=== PATIENT | female | born 1930 | race Hispanic/Latino ===

== ENCOUNTER 2017-09-14 07:40 | Inpatient (IN) | payer MEDICARE, BC ==
[2017-09-14 07:47] VITALS: BMI 28.8
--- NOTE | 2017-09-14 07:49 | ED PDOC ---
Arrival/HPI - General Chief Complaint: Dizziness/Lightheaded Time Seen by Provider: 09/14/17 07:49 Historian: Patient, Family - History of Present Illness Narrative History of Present Illness (Text): 09/14/17 07:50 87 year old female, whose past medical history includes hyperthyroidism and atrial fibrillation (on 2mg Coumadin), who presents to the emergency department via EMS complaining of dizziness. According to daughter patient has intermittent episodes of dizziness for a couple of months. Patient reports when she was getting ready this morning she felt dizziness and felt she was going to faint. No other complaints were made. PMD: Dr. Amita Connors Time/Duration: Prior to Arrival Symptom Onset: Sudden Symptom Course: Unchanged, Intermittent Activities at Onset: Light Context: Walking, Home Associated Symptoms (Text): 09/14/17 08:06 Daughter reports a several month history of intermittent dizziness. There've been several falls with no injury. Became worse this morning after the patient was already up. She felt as if she were going to fall. Daughter called 911 and the patient was brought to the emergency department via ambulance. She denies headache. No focal weakness. No chest pain palpitations or dyspnea. No nausea or vomiting. No head trauma. Past Medical History - Provider Review Nursing Documentation Reviewed: Yes - Tetanus Immunization Tetanus Immunization: Unknown - Cardiac Hx Cardiac Disorders: Yes (Afib) - Pulmonary Hx Respiratory Disorders: Yes Hx Pneumonia: Yes - Neurological Hx Dizziness: Yes (vertigo) - HEENT Hx HEENT Disorder: Yes (R eye retinal bleeding. c/o blurry vision) - Renal Other/Comment: uti's - Endocrine/Metabolic Hx Endocrine Disorders: No Hx Hyperthyroidism: Yes - Hematological/Oncological Hx Cancer: Yes (r lumpectomy/nose) - Integumentary Hx Basal Cell Carcinoma: Yes - Musculoskeletal/Rheumatological Hx Falls: Yes Hx Osteoarthritis: Yes Hx Osteoporosis: Yes Hx Unsteady Gait: Yes (walker) - Gastrointestinal Hx Gastrointestinal Disorders: No - Genitourinary/Gynecological Hx Reproductive Disorders: Yes (H/O Hysterectomy & R Breast Lumpectomy) - Psychiatric Hx Psychophysiologic Disorder: No Hx Substance Use: No - Past Surgical History Past Surgical History: No Previous - Surgical History Hx Hysterectomy: Yes Hx Mastectomy: No (R Breast Lumpectomy) Hx Orthopedic Surgery: Yes Other/Comment: r ovarian cyst - Anesthesia Hx Anesthesia Reactions: No - Suicidal Assessment Feels Threatened In Home Enviroment: No Family/Social History - Physician Review Nursing Documentation Reviewed: Yes Family/Social History: Unknown Family HX Smoking Status: Never Smoked Hx Alcohol Use: No Hx Substance Use: No Hx Substance Use Treatment: No Allergies/Home Meds Allergies/Adverse Reactions: Allergies sulfamethoxazole [From Bactrim] Allergy (Verified 04/24/16 03:15) RASH trimethoprim [From Bactrim] Allergy (Verified 04/24/16 03:15) RASH Home Medications: Home Meds Medication Instructions Recorded Confirmed Warfarin Sodium [Coumadin] 2 mg PO DAILY 06/10/14 09/14/17 Digoxin 0.25 mg PO DAILY 10/13/14 09/14/17 Ropinirole HCl [Requip] 0.25 mg PO HS 11/14/15 09/14/17 Tramadol HCl/Acetaminophen 1 tab PO DAILY PRN 11/14/15 09/14/17 [Ultracet 325 mg-37.5 mg] amLODIPine [Norvasc] 5 mg PO DAILY 11/14/15 09/14/17 Review of Systems - Physician Review All systems were reviewed & negative as marked: Yes - Review of Systems Constitutional: absent: Fatigue, Fevers Respiratory: absent: SOB, Cough, Wheezing Cardiovascular: absent: Chest Pain, Palpitations, Syncope Gastrointestinal: absent: Abdominal Pain, Diarrhea, Nausea, Vomiting Neurological: Dizziness. absent: Headache, Focal Weakness Physical Exam Vital Signs Reviewed: Yes Vital Signs Temp Pulse Resp BP Pulse Ox 09/14/17 10:09 53 L 19 134/70 95 09/14/17 09:26 44 L 18 114/51 L 95 09/14/17 09:25 114/51 L 09/14/17 08:13 98.7 F 52 L 19 116/54 L 95 Temperature: Afebrile Blood Pressure: Hypotensive Pulse: Bradycardic Respiratory Rate: Normal Appearance: Positive for: Well-Appearing, Non-Toxic, Comfortable Pain Distress: None Mental Status: Positive for: Alert and Oriented X 3 - Systems Exam Head: Present: Atraumatic, Normocephalic Pupils: Present: PERRL Extroacular Muscles: Present: EOMI Conjunctiva: Present: Normal Ears: Present: NORMAL TM, Normal Canal. No: Erythema Mouth: Present: Moist Mucous Membranes Pharnyx: No: ERYTHEMA, EXUDATE, TONSILS ENLARGED Respiratory/Chest: Present: Clear to Auscultation, Good Air Exchange. No: Respiratory Distress, Accessory Muscle Use, Wheezes, Rales, Retracting, Rhonchi Cardiovascular: Present: Normal S1, S2, Irregular Rhythm. No: Murmurs Abdomen: Present: Normal Bowel Sounds. No: Tenderness, Distention, Peritoneal Signs, Rebound, Guarding Upper Extremity: Present: Normal Inspection, Normal ROM, NORMAL PULSES, Neurovascularly Intact, Capillary Refill < 2s. No: Cyanosis, Edema, Tenderness , Swelling, Erythema, Deformity Lower Extremity: Present: Edema (1+ bilateral lower extremity which daughter reports is chronic), NORMAL PULSES, Normal ROM, Neurovascularly Intact. No: CALF TENDERNESS, Cyanosis, Deformity Neurological: Present: GCS=15, CN II-XII Intact, Speech Normal, Motor Func Grossly Intact, Normal Sensory Function, Normal Cerebellar Funct Skin: Present: Warm, Dry, Normal Color. No: Rashes Psychiatric: Present: Alert, Oriented x 3, Normal Insight, Normal Concentration Medical Decision Making ED Course and Treatment: 09/14/17 Impression: 87 year old female with +1 lower extremity edema complaining of dizziness Plan: -- EKG -- Chest X-ray -- CT head -- Antivert -- Labs -- Reassess and disposition Progress Notes: 09/14/17 08:10 EKG shows atrial fibrillation rate approximately [address] and T wave changes and no acute changes 09/14/17 09:[address]: Creator : Olegario Hanna MD COMPARISON: 11/14/2015 FINDINGS: HEMORRHAGE: No intracranial hemorrhage. BRAIN: No mass effect or edema. Chronic microvascular changes in the periventricular white matter VENTRICLES: Unremarkable. No hydrocephalus. CALVARIUM: Unremarkable. PARANASAL SINUSES: Unremarkable as visualized. No significant inflammatory changes. MASTOID AIR CELLS: Unremarkable as visualized. No inflammatory changes. OTHER FINDINGS: None. IMPRESSION: No acute findings 09/14/17 10:30 Chest X-ray: Creator : Olegario Hanna MD COMPARISON: 07/16/2015 FINDINGS: LUNGS: Minimal right lower lobe infiltrate versus layering of pleural effusion PLEURA: There is a small effusion at the right lung base CARDIOVASCULAR: Normal. OSSEOUS STRUCTURES: No significant abnormalities. VISUALIZED UPPER ABDOMEN: Normal. OTHER FINDINGS: None. IMPRESSION: There is a small effusion at the right lung base. There is a minimal infiltrate in the right lower lobe which may also represent layering of pleural fluid - Lab Interpretations Lab Results: 09/14/17 08:00 09/14/17 08:00 Lab Results 09/14/17 08:22: POC Glucose (mg/dL) 111 H 09/14/17 08:00: Sodium 147, Potassium 3.8, Chloride 109 H, Carbon Dioxide 32, Anion Gap 10, BUN 20, Creatinine 0.6 L, Est GFR ( Amer) > 60, Est GFR ( Non-Af Amer) > 60, Random Glucose 101, Calcium 9.7, Magnesium 2.0, Total Bilirubin 0.5, AST 33, ALT 32, Alkaline Phosphatase 103, Lactate Dehydrogenase 490, Total Creatine Kinase 55, Troponin I < 0.01, NT-Pro-B Natriuret Pep 1170 H , Total Protein 7.0, Albumin 3.6, Globulin 3.4, Albumin/Globulin Ratio 1.1 09/14/17 08:00: PT 52.3 H, INR 4.41 H*, APTT 59.2 H 09/14/17 08:00: WBC 5.3 D, RBC 3.86, Hgb 12.1, Hct 37.5, MCV 97.2, MCH 31.3, MCHC 32.3, RDW 15.0 H, Plt Count 164, MPV 10.6, Gran % 71.0 H, Lymph % (Auto) 21.1 L, Barber % (Auto) 5.8, Eos % (Auto) 1.5, Baso % (Auto) 0.6, Gran # 3.78, Lymph # (Auto) 1.1 L, Barber # (Auto) 0.3, Eos # (Auto) 0.1, Baso # (Auto) 0.03 09/14/17 08:00: Digoxin 0.6 L I have reviewed the lab results: Yes - RAD Interpretation Radiology Orders: 09/14/17 07:58 HEAD W/O CONTRAST [CT] Stat 09/14/17 07:59 CHEST PORTABLE [RAD] Stat Chest one view shows a right lower lobe infiltrate with possible pleural effusion Lifestyle Consultant: ED Physician, Radiologist - EKG Interpretation Interpreted by ED Physician: Yes Type: 12 lead EKG - Medication Orders Current Medication Orders: Amlodipine Besylate (Norvasc) 5 mg PO DAILY [facility] Digoxin (Lanoxin) 0.25 mg PO DAILY PAUL Azithromycin (Zithromax 500mg In Ns) 500 mg in 250 mls @ 167 mls/hr IVPB STAT STA PRN Reason: Protocol Stop: 09/14/17 10:39 Last Admin: 09/14/17 10:11 Dose: 167 mls/hr eMAR Start Stop Document 09/14/17 10:11 IBETH (Rec: 09/14/17 10:11 IBETH NICHOLS-PC) Intravenous Solution Start Date 09/14/17 Start Time 10:11 End Date 09/14/17 End time 11:45 Total Infusion Time 94 Ropinirole HCl (Requip) 0.25 mg PO HS PAUL Discontinued Medications Furosemide (Lasix) 40 mg IVP ONCE ONE Stop: 09/14/17 09:08 Last Admin: 09/14/17 09:25 Dose: 40 mg MAR Blood Pressure Document 09/14/17 09:25 IBETH (Rec: 09/14/17 09:25 IBETH NICHOLS-PC) Blood Pressure Blood Pressure (100/60-150/90) 114/51 IVP Administration Document 09/14/17 09:25 IBETH (Rec: 09/14/17 09:25 IBETH [id number]) Charges for Administration # of IVP Administrations 1 Ceftriaxone Sodium (Rocephin 1 Gram Ivpb) 1 gm in 100 mls @ 200 mls/hr IVPB STAT STA PRN Reason: Protocol Stop: 09/14/17 09:37 Last Admin: 09/14/17 09:25 Dose: 200 mls/hr eMAR Start Stop Document 09/14/17 09:25 IBETH (Rec: 09/14/17 09:25 IBETH [id number]) Intravenous Solution Start Date 09/14/17 Start Time 09:25 End Date 09/14/17 End time 10:00 Total Infusion Time 35 Meclizine HCl (Antivert) 25 mg PO ONCE ONE Stop: 09/14/17 08:01 Last Admin: 09/14/17 08:21 Dose: 25 mg - Scribe Statement The provider has reviewed the documentation as recorded by the Mehdi Woods Provider Scribe Attestation: All medical record entries made by the Chaparritaibfrida were at my direction and personally dictated by me. I have reviewed the chart and agree that the record accurately reflects my personal performance of the history, physical exam, medical decision making, and the department course for this patient. I have also personally directed, reviewed, and agree with the discharge instructions and disposition. Disposition/Present on Arrival - Present on Arrival Any Indicators Present on Arrival: No History of DVT/PE: No History of Uncontrolled Diabetes: No Urinary Catheter: No History of Decub. Ulcer: No History Surgical Site Infection Following: None - Disposition Have Diagnosis and Disposition been Completed?: Yes Diagnosis: Near syncope, Dizziness, Pedal edema, Congestive heart failure, Coagulopathy, Pneumonia, Pleural effusion, Atrial fibrillation Disposition: HOSPITALIZED Disposition Time: 09:14 Patient Plan: Observation, Telemetry Patient Problems: Current Active Problems Problem Status Onset Atrial fibrillation Acute Coagulopathy Acute Congestive heart failure Acute Dizziness Acute Near syncope Acute Pedal edema Acute Pleural effusion Acute Pneumonia Acute Condition: FAIR
[2017-09-14 08:24] LABS: BASO # 0.03 K/mm3 (0.0-2.0); BASO % 0.6 % (0.0-3.0); EOS # 0.1 (0.0-0.7); EOS % 1.5 % (1.5-5.0); GRAN # 3.78 (1.4-6.5); HEMOGLOBIN 12.1 g/dL (12.0-16.0); LYMPH # 1.1 (1.2-3.4); LYMPH % 21.1 % (22.0-35.0); MEAN CELL VOLUME 97.2 fl (80.0-105.0); MEAN CORPUSCULAR HEMOGLOBIN 31.3 pg (25.0-35.0); MEAN CORPUSCULAR HGB CONC 32.3 g/dl (31.0-37.0); MEAN PLATELET VOLUME 10.6 fl (7.0-11.0); MONO # 0.3 (0.1-0.6); MONO % 5.8 % (1.0-6.0); RBC 3.86 10^6/uL (3.5-6.1); WHITE BLOOD COUNT 5.3 10^3/ul (4.5-11.0)
[2017-09-14 08:33] LABS: ALB/GLOB RATIO 1.1 (1.1-1.8); ALBUMIN 3.6 g/dL (3.0-4.8); ALT/SGPT 32 U/L (7-56); AST/SGOT 33 U/L (14-36); BLOOD UREA NITROGEN 20 mg/dL (7-21); CALCIUM 9.7 mg/dL (8.4-10.5); GFR AFRICAN-AMERICAN > 60; GFR NON-AFRICAN AMERICAN > 60
[2017-09-14 08:41] LABS: PROTHROMBIN TIME 52.3 SECONDS (9.4-12.5)
[2017-09-14 08:42] LABS: PARTIAL THROMBOPLASTIN TIME 59.2 Seconds (25.1-36.5)
[2017-09-14 08:45] LABS: INR 4.41 (0.93-1.08)
[2017-09-14 08:46] LABS: B-TYPE NATRIURETIC PEPTIDE 1170 pg/mL (0-450); TROPONIN I < 0.01 ng/mL
[2017-09-14] MEDS ORDERED: cefTRIAXone 1 gm 1 GM/100 ML BAG IVPB STA (09:08)
[2017-09-14] MEDS ORDERED: Azithromycin 500MG/NS 250ml 500 MG/250 ML BAG IVPB STA (09:10)
--- NOTE | 2017-09-14 09:56 | CT ---
PROCEDURE: CT HEAD WITHOUT CONTRAST. HISTORY: dizzy COMPARISON: 11/14/2015 TECHNIQUE: Axial computed tomography images were obtained through the head/brain without intravenous contrast. Radiation dose: Total exam DLP = 893 mGy-cm. This CT exam was performed using one or more of the following dose reduction techniques: Automated exposure control, adjustment of the mA and/or kV according to patient size, and/or use of iterative reconstruction technique. FINDINGS: HEMORRHAGE: No intracranial hemorrhage. BRAIN: No mass effect or edema. Chronic microvascular changes in the periventricular white matter VENTRICLES: Unremarkable. No hydrocephalus. CALVARIUM: Unremarkable. PARANASAL SINUSES: Unremarkable as visualized. No significant inflammatory changes. MASTOID AIR CELLS: Unremarkable as visualized. No inflammatory changes. OTHER FINDINGS: None. IMPRESSION: No acute findings
[2017-09-14] MEDS ORDERED: Digoxin 250 mcg (0.25 mg) Tab PO SCH (10:00)
--- NOTE | 2017-09-14 10:17 | CARD ---
APPROVED REPORT EKG Measurement Heart [id number] <Conclusion> Atrial fibrillation with slow ventricular response LVH NSSTW changes No change
--- NOTE | 2017-09-14 10:28 | RAD ---
HISTORY: dizzy COMPARISON: 07/16/2015 FINDINGS: LUNGS: Minimal right lower lobe infiltrate versus layering of pleural effusion PLEURA: There is a small effusion at the right lung base CARDIOVASCULAR: Normal. OSSEOUS STRUCTURES: No significant abnormalities. VISUALIZED UPPER ABDOMEN: Normal. OTHER FINDINGS: None. IMPRESSION: There is a small effusion at the right lung base. There is a minimal infiltrate in the right lower lobe which may also represent layering of pleural fluid
[2017-09-14 10:39] VITALS: PULSE 42
--- NOTE | 2017-09-14 14:08 | CP.PCM.CON ---
History of Present Illness - History of Present Illness History of Present Illness: 87 year old female with PMH of atrial fibrillation, hyperthyroidism, history of right breast lumpectomy, history of pneumonia, history of basal cell carcinoma, S/P hysterectomy, history of ovarian cyst was [place] [facility] [place] of dizziness which has been ongoing for a few months now. The patient also has a dry cough but has no shortness of breath at rest, no fever or chills, no sputum production, no dysphagia, no nausea or vomiting, no headache, no blurring of vision, no abdominal pain, no diarrhea, no dysuria. CXR was done which showed questionable left lower lobe infiltrate. Infectious Diseases consult is requested to further evaluate and manage. Review of Systems - Review of Systems All systems: reviewed and no additional remarkable complaints except (as per HPI ) Past Patient History - Infectious Disease Hx of Infectious Diseases: None - Tetanus Immunizations Tetanus Immunization: Unknown - Past Social History Smoking Status: Never Smoked - CARDIAC Hx Cardiac Disorders: Yes (Afib) - PULMONARY Hx Respiratory Disorders: Yes Hx Pneumonia: Yes - NEUROLOGICAL Hx Dizziness: Yes (vertigo) - HEENT Hx HEENT Problems: Yes (R eye retinal bleeding. c/o blurry vision) - RENAL Other/Comment: uti's - ENDOCRINE/METABOLIC Hx Endocrine Disorders: No Hx Hyperthyroidism: Yes - HEMATOLOGICAL/ONCOLOGICAL Hx Cancer: Yes (r lumpectomy/nose) - INTEGUMENTARY Hx Basil Cell: Yes - MUSCULOSKELETAL/RHEUMATOLOGICAL Hx Falls: Yes Hx Osteoarthritis: Yes Hx Osteoporosis: Yes Hx Unsteady Gait: Yes (walker) - GASTROINTESTINAL Hx Gastrointestinal Disorders: No - GENITOURINARY/GYNECOLOGICAL Hx Reproductive Disorders: Yes (H/O Hysterectomy & R Breast Lumpectomy) - PSYCHIATRIC Hx Psychophysiologic Disorder: No Hx Substance Use: No - SURGICAL HISTORY Hx Hysterectomy: Yes Hx Mastectomy: No (R Breast Lumpectomy) Hx Orthopedic Surgery: Yes Other/Comment: r ovarian cyst - ANESTHESIA Hx Anesthesia Reactions: No Meds Allergies/Adverse Reactions: Allergies Allergy/AdvReac Type Severity Reaction Status Date / Time sulfamethoxazole Allergy RASH Verified 04/24/16 03:15 [From Bactrim] trimethoprim [From Bactrim] Allergy RASH Verified 04/24/16 03:15 - Medications Medications: Current Medications Amlodipine Besylate (Norvasc) 5 mg PO DAILY PAUL Digoxin (Lanoxin) 0.25 mg PO DAILY PAUL Azithromycin (Zithromax 500mg In Ns) 500 mg in 250 mls @ 167 mls/hr IVPB STAT STA PRN Reason: Protocol Stop: 09/14/17 10:39 Ropinirole HCl (Requip) 0.25 mg PO HS [facility] Physical Exam - Constitutional Appears: Chronically Ill - Head Exam Head Exam: NORMAL INSPECTION - ENT Exam ENT Exam: Mucous Membranes Moist - Neck Exam Neck exam: Negative for: Meningismus - Respiratory Exam Respiratory Exam: Decreased Breath Sounds - Cardiovascular Exam Cardiovascular Exam: +S1, +S2 - GI/Abdominal Exam GI & Abdominal Exam: Soft. absent: Tenderness Results - Vital Signs Recent Vital Signs: Last Vital Signs Temp 98.7 F 09/14/17 08:13 Pulse 44 L 09/14/17 09:26 Resp 18 09/14/17 09:26 BP 114/51 L 09/14/17 09:26 Pulse Ox 95 09/14/17 09:26 - Labs Result Diagrams: 09/14/17 08:00 09/14/17 08:00 Assessment & Plan - Assessment and Plan (Free Text) Plan: Assessment R/O left lower lobe pneumonia dizziness, etiology to be determined atrial fibrillation hyperthyroidism history of right breast lumpectomy history of pneumonia history of basal cell carcinoma S/P hysterectomy history of ovarian cyst Plan started Rocephin and Zithromax and follow up blood, urine cx, PCT; reviewed CXR follow up medical team's work up of dizziness will monitor clinically
[2017-09-14] MEDS ORDERED: Influenza Vaccine 60 mcg/0.5 mL SYR (4YR UP) IM ONE (14:22)
[2017-09-14] MEDS ORDERED: Pneumococcal 23-Valent Vaccine IM ONE (14:22)
--- NOTE | 2017-09-14 21:12 | HP ---
HISTORY OF PRESENT ILLNESS: This is an 87-year-old female who has come into the hospital with past medical history of atrial fibrillation, on anticoagulation with Coumadin, complaining of dizziness. The patient states she has been lightheaded. She has been having intermittent dizzy spells. She has had several falls. She felt that she was going to fall again. Her daughter called EMS and the patient was brought into the emergency room for further evaluation. She denies any chest pain or shortness of breath. No headaches. No dizziness. No nausea. No vomiting. No abdominal pain. No back pain. No dysuria, frequency. No nocturia. The patient denies any shortness of breath. She does complain of lower extremity edema. REVIEW OF SYSTEMS: All other review of symptoms are within normal limits except what is mentioned. PAST MEDICAL HISTORY: Atrial fibrillation, on Coumadin; breast cancer. PAST SURGICAL HISTORY: Hysterectomy, right knee surgery, right arm surgery. ALLERGIES: SULFA AND TRIMETHOPRIM. SOCIAL HISTORY: The patient lives alone. She does have a brother, who lives on a different floor in her building. She denies any smoking or drugs. PHYSICAL EXAMINATION: VITAL SIGNS: Temperature is 98.7, pulse is in the 40s to 50s, respirations 19, O2 saturating 95%, blood pressure 116/54. GENERAL: The patient lying in bed, uncomfortable, and in no acute distress. HEENT: Atraumatic and normocephalic. Anicteric sclerae. Moist mucosa. Nectar conjunctivae. No oral lesions. NECK: No JVD, anterior and posterior adenopathy, thyromegaly, or bruits. CARDIOVASCULAR: S1 and S2 regular. No murmur, rubs, or gallop. LUNGS: Clear to auscultation bilaterally. No wheezes, rales, or rhonchi. ABDOMEN: Bowel sounds are positive. Soft, nontender and nondistended. No hepatosplenomegaly. No rebound and no guarding. EXTREMITIES: Right lower extremity, 1+ edema. NEUROLOGIC: No facial asymmetry. Tongue is midline. No uvula deviation. Power is 5/5 upper extremity and lower extremity. Sensation intact in upper extremity and lower extremity. PSYCHIATRIC: She is awake, alert and oriented x3. No anxiety or depression. She has normal affect. GENITOURINARY: No CVA tenderness. VASCULAR: 2+ pulses in the carotid pulses and pedal pulses. SKIN: No erythema or nodules. SPINE: Shows normal curvature. LABORATORY DATA: White count is 5.3, hemoglobin 12.1, platelet count 164. INR is 4.4. Chemistry shows a sodium 147, potassium is 3.8, creatinine is 0.6. Alkaline phosphatase of 103. Toxicology shows a digoxin of 0.6. Chest x-ray shows right lower lobe infiltrate. ASSESSMENT: 1. Community-acquired pneumonia. 2. Acute congestive heart failure secondary to systolic dysfunction. 3. Atrial fibrillation, on anticoagulation. 4. Dizziness. 5. Hypertension. 6. Asymptomatic bradycardia. PLAN: The patient is going to be admitted to the hospital. The patient was given IV antibiotics in the ER and IV diuretic therapy. I will get Dr. Smith to evaluated the patient. She will have her Coumadin on hold because of the elevated INR. I will continue the patient on her digoxin and Norvasc. She is also receiving ropinirole in the evening time. The patient is going to be admitted to telemetry. We will get physical therapy. She does have lower extremity edema. She has blood cultures x2 that have been ordered. Jasson Chand MD
[2017-09-15 09:32] LABS: INR 3.06 (0.93-1.08)
[2017-09-15] MEDS: cefTRIAXone 1 gm 1 GM/100 ML BAG IVPB SCH (10:20)
[2017-09-15] MEDS: Azithromycin 250 MG in Sodium Chloride 0.9% 250 ML IVPB SCH (12:10)
--- NOTE | 2017-09-15 12:59 | CON ---
DATE: 09/15/2017 PULMONARY CONSULTATION This pulmonary consultation was requested by Dr. Chand. REASON FOR CONSULTATION: Pneumonia. HISTORY OF PRESENT ILLNESS: The patient is an 87-year-old female, with past medical history significant for pneumonia (2015), atrial fibrillation, hyperthyroidism, chronic vertigo, who presents to [facility] with main complaint of worsening dizziness over the past few months. In the emergency room, the patient was diagnosed with probable pneumonia. She was thus admitted for additional evaluation. The patient denies shortness of breath at rest. She does have occasional dyspnea on exertion. She also states to a cough over the past 3-4 days. There is no history of sputum production. There is no history of chest pain, coughing up of blood or chest pain - made worse with deep respirations. There is no history of temperatures, chills or infectious exposure. There is no history of night sweats, weight loss or appetite change prior to the above events. No history of leg or calf pains. No history of syncope or diaphoresis. No history of recent travel or trauma. REVIEW OF SYSTEMS: No history of nausea, vomiting or diarrhea. No acute urinary symptoms. No new musculoskeletal complaints. Rest of the review of systems is negative. ALLERGIES: TO BACTRIM. SOCIAL HISTORY: Negative for tobacco. Negative for alcohol. FAMILY HISTORY: No inheritable diseases. HOME MEDICATIONS: Include Norvasc, Coumadin, Ultracet, Requip, digoxin. PHYSICAL EXAMINATION: GENERAL: The patient appears comfortable at rest. She is not short of breath. She is not using accessory muscles for breathing. VITAL SIGNS: Temperature 97.3, pulse 86, respirations 18/20, blood pressure 151/77. Oxygen saturation on room air is 94%. HEENT: Normocephalic, atraumatic. No JVD. CARDIOVASCULAR: Systolic ejection murmur at the lower left sternal border. No S3 gallop. LUNGS: Crackles noted at the right base. No rhonchi. No wheezing. EXTREMITIES: Mild edema. No cyanosis. No clubbing. Calves are nontender to palpation. GI: Abdomen is soft, nontender and nondistended. Bowel sounds are positive. SKIN: No acute rash. NEUROLOGIC: Limited at the present time. PERTINENT LABORATORY DATA: Chest x-ray was done yesterday and reviewed. There is a small patchy infiltrate noted at the right base. There is also a probable small right pleural effusion. CBC: White count 5.3, hemoglobin 12.1, hematocrit 37.5, platelets of 164,000. INR 4.41. Complete metabolic profile: Chloride 109, glucose 111. B-type natriuretic peptide 1170. Rest of the metabolic profiles within normal limits. IMPRESSION: 1. Right lower lobe pneumonia. 2. Small right pleural effusion. 3. Chronic atrial fibrillation. 4. Vertigo. PLAN: The patient presents to [facility] with main complaint of increasing dizziness over the past few months. In addition, the patient also states to some mild dyspnea on exertion and dry cough for the past 3-4 days. I did review the chest x-ray as above. The chest x-ray reveals a small patchy right lower lobe infiltrate, with a small (very small) right pleural effusion. The patient has been pancultured and placed on appropriate antibiotic therapy. Input by Infectious Disease (Dr. Restrepo) is noted. On physical exam, there is no significant bronchospasm. In addition, there is no significant alveolar-arterial gradient. The patient does state to feeling better, and is clinically improved this morning - compared to the past few days. I would also like to check a repeat chest x-ray - for comparison - in a few days. Additional pulmonary intervention will be based on the above results, as well as the clinical status of the patient. I did discuss the above with Dr. Chand. Thank you very much for this pulmonary consultation. Robert Barraza MD MTDKate
[2017-09-15] MEDS: Nystatin 100,000 Units/gm Topical Pow(15 gm) TOP SCH (13:18)
--- NOTE | 2017-09-15 17:03 | CP.PCM.PN ---
Subjective - Date & Time of Evaluation Date of Evaluation: 09/15/17 Time of Evaluation: 12:10 - Subjective Subjective: No fevers, not in distress. Objective - Vital Signs/Intake and Output Vital Signs (last 24 hours): Temp Pulse Resp BP Pulse Ox 97.3 F L 86 20 151/77 H 94 L 09/15/17 06:00 09/15/17 06:00 09/15/17 06:00 09/15/17 06:00 09/15/17 06:00 Intake and Output: 09/15/17 09/15/17 06:59 18:59 Intake Total 480 Output Total 500 Balance -20 - Medications Medications: Current Medications Amlodipine Besylate (Norvasc) 5 mg PO DAILY [facility] Last Admin: 09/14/17 10:37 Dose: 5 mg Digoxin (Lanoxin) 0.25 mg PO DAILY [facility] Last Admin: 09/14/17 10:39 Dose: Not Given Ceftriaxone Sodium (Rocephin 1 Gram Ivpb) 1 gm in 100 mls @ 100 mls/hr IVPB DAILY [facility] PRN Reason: Protocol Azithromycin 250 mg/ Sodium (Chloride) 250 mls @ 167 mls/hr IVPB DAILY [facility] PRN Reason: Protocol Nystatin (Nystop Topical Powder) 0 gm TOP DAILY [facility] Ropinirole HCl (Requip) 0.25 mg PO HS [facility] Last Admin: 09/14/17 21:14 Dose: 0.25 mg - Labs Labs: PT 36.0 SECONDS (9.4-12.5) H 09/15/17 08:30 INR 3.06 (0.93-1.08) H 09/15/17 08:30 APTT 59.2 Seconds (25.1-36.5) H 09/14/17 08:00 - Constitutional Appears: Chronically Ill - Head Exam Head Exam: NORMAL INSPECTION - Neck Exam Neck Exam: absent: Meningismus - Respiratory Exam Respiratory Exam: Decreased Breath Sounds - Cardiovascular Exam Cardiovascular Exam: +S1, +S2 - GI/Abdominal Exam GI & Abdominal Exam: Soft. absent: Tenderness Assessment and Plan - Assessment and Plan (Free Text) Plan: Assessment R/O left lower lobe pneumonia dizziness, etiology to be determined atrial fibrillation hyperthyroidism history of right breast lumpectomy history of pneumonia history of basal cell carcinoma S/P hysterectomy history of ovarian cyst Plan continue Rocephin and Zithromax day 2; blood cx are negative x 1 days, follow up PCT; reviewed CXR follow up medical team's work up of dizziness will continue to monitor clinically
--- NOTE | 2017-09-15 18:14 | CON ---
DATE: 09/15/2017 INDICATIONS: Chronic AFib, dizziness, falls, pneumonia, coagulopathy. HISTORY OF PRESENT ILLNESS: This is an 87-year-old woman known to me from prior admissions, who is admitted to the emergency room yesterday with dizziness which is somewhat chronic, but worse recently, falls, found to have atrial fibrillation, sometimes with slow ventricular rate while on telemetry, infiltrate on chest x-ray, and coagulopathy. There is no chest pain, shortness of breath, orthopnea, PND, syncope, seizure, palpitations, edema, claudication, fever, chills, cough, sputum production, hemoptysis, abdominal pain, nausea, vomiting, diarrhea, constipation, or melena. PAST MEDICAL HISTORY: Notable for chronic AFib, she is on warfarin. She has had chronic dizziness and falls and a previous admission in 2014, for dizziness and falls. She has history of hypertension, breast cancer with lumpectomy, hysterectomy, right arm and right knee surgery. An echocardiogram in 2014, revealed normal LV function with mild aortic insufficiency, mitral regurgitation, and pulmonic insufficiency with moderate tricuspid regurgitation and pulmonary hypertension. MEDICATIONS: At the time of admission include warfarin, digoxin, amlodipine, Requip, Ultracet. ALLERGIES: SHE NOTES ALLERGIES TO SULFAMETHOXAZOLE AND BACTRIM. SOCIAL HISTORY: She lives at home with assistance of her family. She does not smoke. She does not drink. Her ambulation is limited. FAMILY HISTORY: Noncontributory. REVIEW OF SYSTEMS: Ten-point review of systems is unremarkable except as noted above. PHYSICAL EXAMINATION: GENERAL: She is a well-developed elderly woman lying in bed, on telemetry, in no acute distress. VITAL SIGNS: Atrial fibrillation, 86 beats per minute. There were some 2 to 2.5 second pauses noted during the night, occasionally heart rate dip down into the 30s and 40s, not accompanied by any symptoms. She is afebrile. Blood pressure 151/77, respirations 18 to 20, O2 sat 92% to 94% on nasal cannula. HEENT: Mucous membranes moist. Conjunctivae pink. NECK: Reveals no neck vein distention, thyromegaly, or carotid bruits. Supple. LUNGS: Lung greenfield clear. HEART: Revealed an irregular rhythm. Normal first and second heart sounds with a soft systolic murmur along the left sternal border. ABDOMEN: Benign. Bowel sounds are present. No mass, organomegaly, tenderness, rebound, guarding, CVA tenderness, or palpable abdominal aortic aneurysm. EXTREMITIES: Revealed no cyanosis, clubbing, or edema. NEUROLOGIC: Awake, alert, but not completely oriented. PSYCHIATRIC: Normal as to mood and affect. SKIN: Warm and dry. No rash or cellulitis. LABORATORY AND IMAGING: The CT scan of the head revealed no acute findings. A portable chest x-ray revealed a small effusion at the left base, minimal infiltrate in the right lower lobe, etc. EKG: Atrial fibrillation, nonspecific ST-wave changes. Q wave in III. No change from a prior EKG. White count normal, hemoglobin 12.1, hematocrit 37.5, platelet count 164,000. PT 52.3, INR 4.41, PTT is 59.2. Electrolytes, BUN, creatinine, blood sugar, magnesium, LFTs, CK, troponin all unremarkable. BNP 1170. TSH 1.12. Digoxin level 0.6. IMPRESSION: Nyasia Gibbs is an 87-year-old woman with chronic dizziness, worse recently; chronic atrial fibrillation, on warfarin with supratherapeutic INR on admission with possible right lower lobe infiltrate, effusion; possible pneumonia; and evidence of bradyrhythmias while on telemetry. PLAN: I agree with current plan. She is on telemetry. We will withhold digoxin and check echocardiogram. I will get another troponin level. We will check her for postural hypotension. She has been cultured and seen by ID. She is getting antibiotics. Pulmonary consultation is requested. I will review her old records. We will hold warfarin. Monitor INRs daily. Reassess whether or not warfarin would be too risky for her in the setting of frequent falls. I will follow along with you. I will make additional recommendations based on her clinical course. Dion Smith MD [facility]
--- NOTE | 2017-09-15 20:41 | PN ---
DATE: SUBJECTIVE: The patient has no complaints of any chest pain, no shortness of breath, no headaches. She states her breathing is better. PHYSICAL EXAMINATION: VITAL SIGNS: Temperature 98.9, pulse 52, blood pressure 130/64, respirations 18. GENERAL: The patient is lying in bed, flat, comfortable. HEENT: No oral lesion. Anicteric sclerae. Moist mucosa. NECK: No JVD, adenopathy, or thyromegaly. CARDIOVASCULAR: S1 and S2, regular. No murmurs, rubs, or gallops. LUNGS: Clear to auscultation bilaterally. No wheeze, rales, or rhonchi. ABDOMEN: Bowel sounds are positive, soft, nontender and nondistended. EXTREMITIES: No cyanosis, clubbing or edema. LABS: White count of 5.3, hemoglobin 12.1, creatinine 0.6. ASSESSMENT: 1. Community-acquired pneumonia. 2. Acute congestive heart failure secondary to systolic dysfunction. 3. Hypothermia, improved. 4. Asymptomatic bradycardia. 5. Hypertension. 6. Dizziness. 7. Atrial fibrillation, on anticoagulation. PLAN: The patient states she is feeling better. She has been followed by ID and Pulmonary. I appreciate their input. I did review their notes. The patient is currently on Rocephin and Zithromax. The patient is on amlodipine for her hypertension. She is on nystatin. She is going to continue with ropinirole. She ordered by Dr. Smith, was consulted for the lower extremity edema. The patient is on a heart-healthy diet. She is getting physical therapy. I did speak to the patient's daughter, Natalya, her number is [phone]. Jasson Chand MD
[2017-09-16 07:33] LABS: INR 2.18 (0.93-1.08); PROTHROMBIN TIME 25.5 SECONDS (9.4-12.5)
--- NOTE | 2017-09-16 08:11 | PN ---
DATE: 09/16/2017 PULMONARY NOTE SUBJECTIVE: The patient appears comfortable this morning. She is not short of breath at rest. She is slightly confused. PHYSICAL EXAMINATION VITAL SIGNS: Temperature is 97.5, pulse is 59, respirations 18, blood pressure 151/64. Oxygen saturation on room air is 96%. HEENT: Normocephalic, atraumatic. No JVD. CARDIOVASCULAR: Systolic ejection murmur at the lower left sternal border. No S3 gallop. LUNGS: Crackles - right base. No rhonchi. No wheezing. EXTREMITIES: Mild edema. No cyanosis, no clubbing. Calves are nontender to palpation. GI: Abdomen is soft, nontender and nondistended. Bowel sounds are positive. SKIN: No acute rash. NEUROLOGIC: Limited at the present time. IMPRESSION: 1. Right lower lobe pneumonia. 2. Small right pleural effusion. 3. Chronic atrial fibrillation. 4. Vertigo. PLAN: The patient appears comfortable this morning. She is not short of breath at rest. She does state to feeling much better overall. She is mildly confused this morning. I did discuss the case with the night nurse at length. The night nurse confirms that the patient has been mildly confused during her shift. On physical exam, no significant bronchospasm is noted. In addition, the oxygen saturation on room air is now 96%. I would continue with the antibiotic coverage as per Infectious Disease. Input by Dr. Restrepo is noted. I will also order a repeat chest x-ray - for tomorrow - for comparison. Clinical status of the patient is certainly improved - compared to the initial presentation. However, the patient does remain guarded overall. I did discuss the case with the daughter at length this morning. I will also discuss the case with Dr. Chand later this morning. Robert Barraza MD [facility]
[2017-09-16] MEDS: Azithromycin 250 MG in Sodium Chloride 0.9% 250 ML IVPB SCH (10:49)
[2017-09-16] MEDS: Nystatin 100,000 Units/gm Topical Pow(15 gm) TOP SCH (10:50)
[2017-09-16] MEDS: cefTRIAXone 1 gm 1 GM/100 ML BAG IVPB SCH (12:53)
[2017-09-17] MEDS ORDERED: Levalbuterol 0.63 MG/3 ML Inhal Soln UD IH ONE (01:00)
--- NOTE | 2017-09-17 01:23 | PN ---
DATE: 09/16/2017 SUBJECTIVE: This patient is seen lying in bed on telemetry. She has continued to feel weak and tired. She had intermittent bradycardia into the 30s with pauses over 3 seconds in the setting of atrial fibrillation. She remains off rate control therapy. CURRENT MEDICATIONS: Include azithromycin, Norvasc 5 mg daily, and Rocephin as well as ReQuip. PHYSICAL EXAMINATION: GENERAL: She is a very elderly woman, who appears comfortable at rest. VITAL SIGNS: Her blood pressure is 150/64 with a pulse of 50, in atrial fibrillation, and respirations are 14. She is afebrile. HEENT: No JVD. CHEST: A few scattered rhonchi. HEART: PMI displaced laterally with an irregularly irregular rhythm. ABDOMEN: Soft, nontender with normal bowel sounds. EXTREMITIES: No edema. DIAGNOSTIC DATA: INR is 2.18. IMPRESSION: 1. Weakness and near syncope in the setting of atrial fibrillation with a slow ventricular response despite withholding digoxin therapy. I suspect significant atrioventricular [place] dysfunction. 2. Chronic atrial fibrillation. 3. Rest of problems as noted. RECOMMENDATIONS: An echocardiogram is pending, will be reviewed. Given her persistent bradycardia, it would appear most likely that a permanent pacemaker implant would be advisable. Arrangements will be made for this later in the week. Her Coumadin therapy would be withheld for now. Daily INR will be monitored. All the above was discussed with Dr. Chand as well as her daughter, Natalya. We will continue to follow and make further recommendations as appropriate. Pierer Barbosa MD
--- NOTE | 2017-09-17 01:55 | PN ---
DATE: SUBJECTIVE: Patient has no complaints of any chest pain. No shortness of breath. No headaches. She is confused this morning. OBJECTIVE: VITAL SIGNS: Temperature is 97.5, pulse of 56, blood pressure is 160/65, respirations 16. GENERAL: The patient is lying in bed, flat, comfortable. HEENT: No oral lesion. Anicteric sclerae. Moist mucosa. NECK: No JVD, adenopathy, or thyromegaly. CARDIOVASCULAR: S1 and S2, regular. No murmurs, rubs, or gallops. LUNGS: Clear to auscultation bilaterally. No wheeze, rales, or rhonchi. ABDOMEN: Bowel sounds are positive, soft, nontender and nondistended. EXTREMITIES: No cyanosis, clubbing or edema. LABORATORY DATA: White count of 5.3, hemoglobin 12.1. Creatinine 0.6. ASSESSMENT: 1. Community-acquired pneumonia. 2. Acute congestive heart failure secondary to systolic dysfunction. 3. Hypothermia, improved. 4. Asymptomatic bradycardia. 5. Hypertension. 6. Dizziness, resolved. 7. Atrial fibrillation, on anticoagulation. PLAN: The patient is on amlodipine for hypertension. She is going to be on ropinirole. She is going to continue with Rocephin and Zithromax for antibiotics. She is going to be evaluated for Transitional Care Unit. I did speak to the patient's daughter to give an update on the patient's diagnoses and plan of care also spoke with about the possibility of requiring pacemaker. Patient's INR is therapeutic at 2.1. We are going to restart the patient's Coumadin. Jasson Chand MD
--- NOTE | 2017-09-17 03:52 | CP.PCM.PN ---
Subjective - Date & Time of Evaluation Date of Evaluation: 09/17/17 Time of Evaluation: 00:05 - Subjective Subjective: pt is admitted for pneumonia,is confused states let her daughter in the room she is standing by door. ,her daughter is not in the hospital. Objective - Vital Signs/Intake and Output Vital Signs (last 24 hours): Temp Pulse Resp BP Pulse Ox 98.7 F 60 19 161/88 H 93 L 09/17/17 00:01 09/17/17 00:01 09/17/17 00:01 09/17/17 00:01 09/17/17 00:01 - Medications Medications: Current Medications Amlodipine Besylate (Norvasc) 5 mg PO DAILY [facility] Last Admin: 09/16/17 10:54 Dose: 5 mg Digoxin (Lanoxin) 0.25 mg PO DAILY [facility] Last Admin: 09/14/17 10:39 Dose: Not Given Ceftriaxone Sodium (Rocephin 1 Gram Ivpb) 1 gm in 100 mls @ 100 mls/hr IVPB DAILY [facility] PRN Reason: Protocol Last Admin: 09/16/17 12:53 Dose: 100 mls/hr Azithromycin 250 mg/ Sodium (Chloride) 250 mls @ 167 mls/hr IVPB DAILY [facility] PRN Reason: Protocol Last Admin: 09/16/17 10:49 Dose: 167 mls/hr Nystatin (Nystop Topical Powder) 0 gm TOP DAILY [facility] Last Admin: 09/16/17 10:50 Dose: 1 applic Ropinirole HCl (Requip) 0.25 mg PO HS [facility] Last Admin: 09/16/17 22:23 Dose: 0.25 mg Warfarin Sodium (Coumadin) 1.5 mg PO HS [facility] PRN Reason: Protocol Last Admin: 09/16/17 22:37 Dose: Not Given - Labs Labs: PT 25.5 SECONDS (9.4-12.5) H 09/16/17 06:45 INR 2.18 (0.93-1.08) H 09/16/17 06:45 APTT 59.2 Seconds (25.1-36.5) H 09/14/17 08:00 - Constitutional Appears: No Acute Distress - Head Exam Head Exam: NORMOCEPHALIC - Eye Exam Eye Exam: Normal appearance Pupil Exam: PERRL - ENT Exam ENT Exam: Mucous Membranes Moist - Neck Exam Neck Exam: Full ROM - Respiratory Exam Respiratory Exam: NORMAL BREATHING PATTERN Additional comments: pt has decreased breath sounds and rales on the let side. - Cardiovascular Exam Cardiovascular Exam: +S1, +S2 - GI/Abdominal Exam GI & Abdominal Exam: Soft - Neurological Exam Neurological Exam: Alert, Awake, Oriented x3 - Psychiatric Exam Psychiatric exam: Anxious Additional comments: hellucinating. - Skin Skin Exam: Warm Assessment and Plan - Assessment and Plan (Free Text) Assessment: psychosis . pneumina left side . atrial fib with controlled rate. Plan: haldol 2 mg x1.stat.
[2017-09-17 07:32] LABS: INR 1.83 (0.93-1.08); PROTHROMBIN TIME 21.3 SECONDS (9.4-12.5)
--- NOTE | 2017-09-17 08:18 | CP.PCM.PN ---
Subjective - Date & Time of Evaluation Date of Evaluation: 09/17/17 Time of Evaluation: 07:00 - Subjective Subjective: Stable on 3R. Became confused during the night. Now seems OK sitting in a chair with Natalya present. Still 2 - 3 sec. pauses on tel. V/S noted. PE; Lungs: clear. Decreased BS at bases Cor.: irreg. S1S2 Abd.: soft Ext.: no edema Neuro.: alert Labs noted: INR = 1.83 BC X 2 NG at 48 hrs. Echo done. Will read. Prelim: Large pl. effusion, NL LV fx. Will read. See full report. Objective - Vital Signs/Intake and Output Vital Signs (last 24 hours): Temp Pulse Resp BP Pulse Ox 97.4 F L 72 19 146/79 94 L 09/17/17 06:00 09/17/17 06:00 09/17/17 06:00 09/17/17 06:00 09/17/17 06:00 Intake and Output: 09/17/17 09/17/17 06:59 18:59 Intake Total 100 Output Total 0 Balance 100 - Medications Medications: Current Medications Acetaminophen (Tylenol 325mg Tab) 650 mg PO Q4H PRN PRN Reason: Pain, Mild (1-3) Amlodipine Besylate (Norvasc) 5 mg PO DAILY [facility] Last Admin: 09/16/17 10:54 Dose: 5 mg Ceftriaxone Sodium (Rocephin 1 Gram Ivpb) 1 gm in 100 mls @ 100 mls/hr IVPB DAILY [facility] PRN Reason: Protocol Last Admin: 09/16/17 12:53 Dose: 100 mls/hr Azithromycin 250 mg/ Sodium (Chloride) 250 mls @ 167 mls/hr IVPB DAILY [facility] PRN Reason: Protocol Last Admin: 09/16/17 10:49 Dose: 167 mls/hr Nystatin (Nystop Topical Powder) 0 gm TOP DAILY [facility] Last Admin: 09/16/17 10:50 Dose: 1 applic Ropinirole HCl (Requip) 0.25 mg PO HS [facility] Last Admin: 09/16/17 22:23 Dose: 0.25 mg Warfarin Sodium (Coumadin) 1.5 mg PO HS [facility] PRN Reason: Protocol Last Admin: 09/16/17 22:37 Dose: Not Given - Labs Labs: PT 21.3 SECONDS (9.4-12.5) H 03/15/18 07:00 INR 1.83 (0.93-1.08) H 09/17/17 07:00 APTT 59.2 Seconds (25.1-36.5) H 09/14/17 08:00 Assessment and Plan - Assessment and Plan (Free Text) Assessment: Acute and chronic dizziness and falls AF with 2 - 3 sec pauses Pneumonia Pleural effusions Confusion HBP H/O Breast cancer Hysterectomy Orthopedic surgeries: Right knee and arm Plan: EP evaluation and possible PPM tentatively tomorrow at [facility] [place] F/U CXR: possible increased pl. effusion Hold warfarin Case d/w her daughter today. Continue tel. Will follow.
--- NOTE | 2017-09-17 09:27 | CARD ---
APPROVED REPORT EXAM: Two-dimensional and M-mode echocardiogram with Doppler and color Doppler. Other Information Quality : AverageRhythm : INDICATION DIZZY, FALLS, AF 2D DIMENSIONS Left Atrium (2D)4.8 (1.6-4.0cm)IVSd1.0 (0.7-1.1cm) LVDd4.9 (3.9-5.9cm)PWd1.0 (0.7-1.1cm) LVDs3.2 (2.5-4.0cm)FS (%) 33.5 % LVEF (%)62.0 (>50%) M-Mode DIMENSIONS Aortic Root3.30 (2.2-3.7cm)Aortic Cusp Exc.2.00 (1.5-2.0cm) Aortic Valve AoV Peak Gcedluya431.0cm/Ariana P 1/2 [id number] Mitral Valve MV E Setprpkz78.9cm/sMV A Hfzqfijg02.0cm/sE/A ratio2.6 TDI Lateral E' Peak V14.30cm/sMedial E' Peak V7.21cm/sE/Lateral E'5.3 E/Medial E'10.5 Pulmonary Valve PV Peak Succuked85.1cm/sPV Peak Grad.1mmHg Tricuspid Valve TR Peak [id number]/sRAP [id number] Peak Gr.56mmHg [id number] LEFT VENTRICLE The left ventricle is normal size. There is normal left ventricular wall thickness. The left ventricular function is normal. The left ventricular ejection fraction is within the normal range. There is normal LV segmental wall motion. RIGHT VENTRICLE The right ventricle is normal size. ATRIA The left atrium is moderately dilated. The right atrium size is normal. The interatrial septum is intact with no evidence for an atrial septal defect. AORTIC VALVE The aortic valve is normal in structure. There is mild aortic regurgitation. MITRAL VALVE The mitral valve is normal in structure. Mitral regurgitation is mild. TRICUSPID VALVE The tricuspid valve is normal in structure. There is moderate tricuspid regurgitation. There is moderate-severe pulmonary hypertension. PULMONIC VALVE The pulmonic valve is not well visualized. There is trace to mild pulmonic valvular regurgitation. GREAT VESSELS The aortic root is normal in size. PERICARDIAL EFFUSION Pleural effusion present There is no pericardial effusion. <Conclusion> The left ventricle is normal size. There is normal left ventricular wall thickness. The left ventricular function is normal. There is mild aortic regurgitation. Mitral regurgitation is mild. There is moderate tricuspid regurgitation. There is moderate-severe pulmonary hypertension. Pleural effusion present
[2017-09-17] MEDS: cefTRIAXone 1 gm 1 GM/100 ML BAG IVPB SCH (09:35)
--- NOTE | 2017-09-17 09:42 | RAD ---
HISTORY: follow up COMPARISON: 09/14/2017 FINDINGS: LUNGS: Persistent abnormal opacity in lower right lung. Possible pneumonia. A hazy opacity at left base. Possible developing infiltrate. Follow-up advised. PLEURA: Minimal blunting of both costophrenic angles may reflect small pleural effusions or chronic pleural thickening. No pneumothorax. CARDIOVASCULAR: Normal. OSSEOUS STRUCTURES: No significant abnormalities. VISUALIZED UPPER ABDOMEN: Normal. OTHER FINDINGS: Surgical clips over mid right lateral chest wall. IMPRESSION: Persistent opacity at right base with minimal hazy opacity at left base. Possible pneumonia. Followup advised. Possible very small bilateral pleural effusion versus chronic pleural thickening.
--- NOTE | 2017-09-17 10:10 | PN ---
DATE: 09/17/2017 PULMONARY NOTE SUBJECTIVE: The patient appears comfortable this morning. She is not short of breath at rest. She remains confused. PHYSICAL EXAMINATION: VITAL SIGNS (Last noted in the computer): Temperature is 98.7, pulse 55, respirations 19, blood pressure 161/88. Oxygen saturation on room air is 93%. HEENT: Normocephalic, atraumatic. No JVD. CARDIOVASCULAR: Systolic ejection murmur at the lower left sternal border. No S3 gallop. LUNGS: Crackles noted at the right base. No rhonchi. No wheezing. EXTREMITIES: Mild edema. No cyanosis, no clubbing. Calves are nontender to palpation. GASTROINTESTINAL: Abdomen is soft, nontender and nondistended. Bowel sounds are positive. SKIN: No acute rash. NEUROLOGIC: Exam limited at the present time. IMPRESSION: 1. Right lower lobe pneumonia. 2. Small right pleural effusion. 3. Chronic atrial fibrillation with episodes of bradycardia. 4. Vertigo. PLAN: The patient appears comfortable this morning. She is not short of breath at rest. She does remain confused. I did discuss the case with the night nurse at length. I also discussed the case with the daughter - at bedside - at length. The night nurse and the daughter both confirm that the patient has been increasingly confused. She did get a dose of Haldol during the last shift. On physical exam, there is no significant bronchospasm noted. In addition, there is no significant alveolar-arterial gradient. I would continue with the antibiotic coverage as per Infectious Disease. Input by Dr. Restrepo is noted. I have also reviewed the note by Dr. Barbosa (Cardiology). The patient is for probable pacemaker insertion - possibly tomorrow. I have also ordered a repeat chest x-ray for today. I will check that when feasible. Clinical status of the patient is certainly improved - compared to the initial presentation. However, her future status/prognosis does remain guarded. I did discuss the case with Dr. Chand at length yesterday. I will discuss the case with him again this morning. Robert Barraza MD [facility] # [id number] MTDD
[2017-09-17] MEDS: Nystatin 100,000 Units/gm Topical Pow(15 gm) TOP SCH (11:06)
[2017-09-17] MEDS: Azithromycin 250 MG in Sodium Chloride 0.9% 250 ML IVPB SCH (11:07)
[2017-09-17] MEDS ORDERED: Sodium Chloride 0.9% 500 ML IV SCH (14:45)
--- NOTE | 2017-09-17 16:35 | CP.PCM.PN ---
Subjective - Date & Time of Evaluation Date of Evaluation: 09/17/17 Time of Evaluation: 11:10 - Subjective Subjective: Not in distress, no fevers. Objective - Vital Signs/Intake and Output Vital Signs (last 24 hours): Temp Pulse Resp BP Pulse Ox 97.4 F L 72 19 130/58 L 94 L 09/17/17 06:00 09/17/17 06:00 09/17/17 06:00 09/17/17 09:35 09/17/17 06:00 Intake and Output: 09/17/17 09/17/17 06:59 18:59 Intake Total 100 Output Total 0 Balance 100 - Medications Medications: Current Medications Acetaminophen (Tylenol 325mg Tab) 650 mg PO Q4H PRN PRN Reason: Pain, Mild (1-3) Amlodipine Besylate (Norvasc) 5 mg PO DAILY [facility] Last Admin: 09/17/17 09:35 Dose: 5 mg Ceftriaxone Sodium (Rocephin 1 Gram Ivpb) 1 gm in 100 mls @ 100 mls/hr IVPB DAILY [facility] PRN Reason: Protocol Last Admin: 09/17/17 09:35 Dose: 100 mls/hr Azithromycin 250 mg/ Sodium (Chloride) 250 mls @ 167 mls/hr IVPB DAILY [facility] PRN Reason: Protocol Last Admin: 09/16/17 10:49 Dose: 167 mls/hr Nystatin (Nystop Topical Powder) 0 gm TOP DAILY [facility] Last Admin: 09/16/17 10:50 Dose: 1 applic Ropinirole HCl (Requip) 0.25 mg PO HS [facility] Last Admin: 09/16/17 22:23 Dose: 0.25 mg Warfarin Sodium (Coumadin) 1.5 mg PO HS [facility] PRN Reason: Protocol Last Admin: 09/16/17 22:37 Dose: Not Given - Labs Labs: PT 21.3 SECONDS (9.4-12.5) H 09/17/17 07:00 INR 1.83 (0.93-1.08) H 09/17/17 07:00 APTT 59.2 Seconds (25.1-36.5) H 09/14/17 08:00 - Constitutional Appears: Non-toxic, Chronically Ill - Head Exam Head Exam: NORMAL INSPECTION - ENT Exam ENT Exam: Mucous Membranes Moist - Neck Exam Neck Exam: absent: Meningismus - Respiratory Exam Respiratory Exam: Decreased Breath Sounds - Cardiovascular Exam Cardiovascular Exam: +S1, +S2 - GI/Abdominal Exam GI & Abdominal Exam: Soft. absent: Tenderness Assessment and Plan - Assessment and Plan (Free Text) Plan: Assessment left lower lobe pneumonia, slowly improving dizziness, etiology to be determined atrial fibrillation hyperthyroidism history of right breast lumpectomy history of pneumonia history of basal cell carcinoma S/P hysterectomy history of ovarian cyst Plan continue Rocephin and Zithromax day 3; blood cx are negative; reviewed CXR; complete 5-7 days of therapy follow up medical team's work up of dizziness will continue to monitor clinically
--- NOTE | 2017-09-17 20:00 | PN ---
DATE: 09/17/2017 SUBJECTIVE: The patient has no complaints of any chest pain or shortness of breath. No headaches or dizziness. She is mildly confused this morning, but less so than yesterday. The patient's daughter, Natalya, is at the bedside. She said she has had episodes of confusion. PHYSICAL EXAMINATION: VITAL SIGNS: Temperature is 97.4, pulse is 72, blood pressure is 130/58, respirations are 19. GENERAL: The patient is lying in bed, flat, comfortable. HEENT: No oral lesion. Anicteric sclerae. Moist mucosa. NECK: No JVD, adenopathy, or thyromegaly. CARDIOVASCULAR: S1 and S2, regular. No murmurs, rubs, or gallops. LUNGS: Clear to auscultation bilaterally. No wheeze, rales, or rhonchi. ABDOMEN: Bowel sounds are positive, soft, nontender and nondistended. EXTREMITIES: No cyanosis, clubbing,,or edema. LABORATORY DATA: Blood cultures have been negative. Chest x-ray shows persistent opacity of the right base with minimal hazy opacity of the left base. ASSESSMENT: 1. Community-acquired pneumonia 2. Acute congestive heart failure secondary to systolic dysfunction. 3. Hypothermia, improved. 4. Bradycardia. 5. Hypertension. 6. Dizziness. 7. Atrial fibrillation, on anticoagulation. PLAN: The patient is currently comfortable. The patient's INR is 1.8. The patient's Coumadin has been on hold. The patient is receiving Haldol. She is going to continue on Requip. The patient is on Rocephin for antibiotics. She is also getting azithromycin for antibiotics. This will be continued. She is waiting to go to [facility] for placement of a pacemaker. She is on a heart-healthy diet. Jasson Chand MD
[2017-09-18 06:28] VITALS: O2SAT 98
[2017-09-18 06:51] LABS: HEMOGLOBIN 12.3 g/dL (12.0-16.0); MEAN CELL VOLUME 96.5 fl (80.0-105.0); MEAN CORPUSCULAR HEMOGLOBIN 30.8 pg (25.0-35.0); MEAN CORPUSCULAR HGB CONC 31.9 g/dl (31.0-37.0); MEAN PLATELET VOLUME 10.9 fl (7.0-11.0); RBC 3.99 10^6/uL (3.5-6.1); RED CELL DISTRIBUTION WIDTH 14.7 % (11.5-14.5); WHITE BLOOD COUNT 6.5 10^3/ul (4.5-11.0)
[2017-09-18 07:12] LABS: ALBUMIN 3.4 g/dL (3.0-4.8); ALT/SGPT 34 U/L (7-56); AST/SGOT 30 U/L (14-36); BLOOD UREA NITROGEN 23 mg/dL (7-21); CALCIUM 9.3 mg/dL (8.4-10.5); GFR AFRICAN-AMERICAN > 60; GFR NON-AFRICAN AMERICAN > 60
[2017-09-18 07:14] LABS: INR 1.74 (0.93-1.08); PROTHROMBIN TIME 20.2 SECONDS (9.4-12.5)
--- NOTE | 2017-09-18 08:09 | CP.PCM.PN ---
Subjective - Date & Time of Evaluation Date of Evaluation: 09/18/17 Time of Evaluation: 07:00 - Subjective Subjective: Subjective: Stable on 3R. Still confused. No CP or SOB. Natalya is at the bedside. V/S noted. AF. VR 34 - 64 range. Still having pauses. PE; Lungs: clear. Decreased BS at bases Cor.: irreg. S1S2 Abd.: soft Ext.: no edema Neuro.: alert but confused Labs noted: INR = 1.74, WBC = 6500, BC X 2 NG at 3 days CXR 09/17: Opacity right base, possible pneumonia Echo noted: Prelim: Large pl. effusion, NL LV fx. Mild AI and MR, mod. TR and mod/sev PH Objective - Vital Signs/Intake and Output Vital Signs (last 24 hours): Temp Pulse Resp BP Pulse Ox 97 F L 63 19 152/82 H 98 09/18/17 06:00 09/18/17 06:00 09/18/17 06:00 09/18/17 06:00 09/18/17 06:00 Intake and Output: 09/18/17 09/18/17 06:59 18:59 Intake Total 620 Output Total 500 Balance 120 - Medications Medications: Current Medications Acetaminophen (Tylenol 325mg Tab) 650 mg PO Q4H PRN PRN Reason: Pain, Mild (1-3) Amlodipine Besylate (Norvasc) 5 mg PO DAILY [facility] Last Admin: 09/17/17 09:35 Dose: 5 mg Ceftriaxone Sodium (Rocephin 1 Gram Ivpb) 1 gm in 100 mls @ 100 mls/hr IVPB DAILY [facility] PRN Reason: Protocol Last Admin: 09/17/17 09:35 Dose: 100 mls/hr Azithromycin 250 mg/ Sodium (Chloride) 250 mls @ 167 mls/hr IVPB DAILY [facility] PRN Reason: Protocol Last Admin: 09/17/17 11:07 Dose: 167 mls/hr Nystatin (Nystop Topical Powder) 0 gm TOP DAILY [facility] Last Admin: 09/17/17 11:06 Dose: 1 applic Ropinirole HCl (Requip) 0.25 mg PO HS [facility] Last Admin: 09/17/17 21:28 Dose: 0.25 mg Warfarin Sodium (Coumadin) 1.5 mg PO HS [facility] PRN Reason: Protocol Last Admin: 09/16/17 22:37 Dose: Not Given - Labs Labs: 09/18/17 06:20 09/18/17 06:20 PT 20.2 SECONDS (9.4-12.5) H 09/18/17 06:20 INR 1.74 (0.93-1.08) H 09/18/17 06:20 APTT 59.2 Seconds (25.1-36.5) H 09/14/17 08:00 Assessment and Plan - Assessment and Plan (Free Text) Assessment: Acute and chronic dizziness and falls AF with 2 - 3 sec pauses Pneumonia Pleural effusions Confusion HBP H/O Breast cancer Hysterectomy Orthopedic surgeries: Right knee and arm Plan: EP evaluation and possible PPM at [facility]. Will postpone until Thursday given confused state and pneumonia with pl. effusion. As per Pulm. and ID and Drs. Benitez Hold warfarin > bridge with Sq Lovenox AB Case d/w her daughter today. Continue tel. Will follow.
--- NOTE | 2017-09-18 09:02 | PN ---
DATE: 09/18/2017 SUBJECTIVE: The patient has no complaints of any chest pain or shortness of breath. She does have episodes of confusion. She does become bradycardic, on telemetry monitoring going from the high 30s to 50s. PHYSICAL EXAMINATION: VITAL SIGNS: Temperature is 97, pulse of 55, blood pressure is 152/70, respirations 18, O2 saturation is 96%. GENERAL: The patient is lying in bed, flat, comfortable. HEENT: No oral lesion. Anicteric sclerae. Moist mucosa. NECK: No JVD, adenopathy, or thyromegaly. CARDIOVASCULAR: S1 and S2, regular. No murmurs, rubs, or gallops. LUNGS: Clear to auscultation bilaterally. No wheeze, rales, or rhonchi. ABDOMEN: Bowel sounds are positive, soft, nontender and nondistended. EXTREMITIES: No cyanosis, clubbing or edema. ASSESSMENT: 1. Bradycardia. 2. Community-acquired pneumonia. 3. Acute congestive heart failure secondary to systolic dysfunction. 4. Hypothermia, resolved. 5. Hypertension. 6. Dizziness. 7. Atrial fibrillation, on anticoagulation. 8. Delirium. PLAN: The patient's Coumadin is on hold for possible procedure for pacemaker to be done later today at [facility]. The patient is on Norvasc for hypertension. She is on Rocephin for antibiotics. She is on azithromycin for antibiotics. The patient has also delirium. The patient is on oxygen therapy. She is receiving a heart-healthy diet. Her blood work is pending this morning. She is being followed by Pulmonary and Cardiology. She is also being followed by Infectious Disease. We will wait to see if the patient is going to be transferred today for her procedure at [facility]. Jasson Chand MD
[2017-09-18] MEDS: Nystatin 100,000 Units/gm Topical Pow(15 gm) TOP SCH (10:14)
[2017-09-18] MEDS: cefTRIAXone 1 gm 1 GM/100 ML BAG IVPB SCH (10:14)
--- NOTE | 2017-09-18 11:05 | PN ---
DATE: 09/18/2017 PULMONARY NOTE SUBJECTIVE: The patient appears comfortable this morning. She is not short of breath at rest. She remains confused. PHYSICAL EXAMINATION: VITAL SIGNS: Temperature is 97.0, pulse 63, respirations 19, blood pressure 152/82. Oxygen saturation on nasal cannula is 98%. HEENT: Normocephalic, atraumatic. No JVD. CARDIOVASCULAR: Systolic ejection murmur at the lower left sternal border. No S3 gallop. LUNGS: Crackles noted at the right base. No rhonchi. No wheezing. EXTREMITIES: Mild edema. No cyanosis. No clubbing. Calves are nontender to palpation. GI: Abdomen is soft, nontender and nondistended. Bowel sounds are positive. SKIN: No acute rash. NEUROLOGIC: Limited at the present time. PERTINENT LABORATORY DATA: Chest x-ray was repeated yesterday and reviewed. The chest x-ray is not significantly changed from the previous film. IMPRESSION: 1. Right lower lobe pneumonia. 2. Small right pleural effusion. 3. Chronic atrial fibrillation with episodes of bradycardia. 4. Vertigo. PLAN: The patient appears comfortable this morning. She is not short of breath at rest. She does remain confused. I did discuss the case with the night nurse at length. The night nurse confirms that the patient has been confused. On physical exam, there is no significant bronchospasm noted. In addition, the oxygen saturation on nasal cannula is now 98%. I will continue the aspiration precautions for now. I would also continue with the antibiotic coverage as per Infectious Disease. Input by Dr. Restrepo is noted. I have also reviewed the note by Dr. Smith (Cardiology). The patient is for a possible pacemaker insertion at [facility] later today. The clinical status of the patient is improved - compared to the initial presentation. However, the patient's overall status/prognosis does remain guarded. I will discuss the above with Dr. Chand later this morning. Robert Barraza MD [facility]
[2017-09-18] MEDS: Azithromycin 250 MG in Sodium Chloride 0.9% 250 ML IVPB SCH (11:34)
[2017-09-18 13:25] VITALS: BP 123/59; RESP 18; TEMP 98.7
[2017-09-18 16:04] VITALS: PULSE 51
[2017-09-18] MEDS ORDERED: Enoxaparin 80 mg Syringe SC SCH (20:00)
--- NOTE | 2017-09-21 09:04 | PN ---
DATE: 09/19/2017 PULMONARY PROGRESS NOTE SUBJECTIVE: The patient is awake and alert, comfortable in bed, watching the [place] music Day parade on television. She does not complain of shortness of breath or cough. I have been asked to see her for followup over the weekend. PHYSICAL EXAMINATION: GENERAL: She is resting comfortably. VITAL SIGNS: She is afebrile. Pulse rate 65, respiratory rate 18, blood pressure 150/80, oxygen saturation 98% on nasal cannula. HEENT: Normocephalic, atraumatic. NECK: There is no JVD. No bruit. No lymphadenopathy. CARDIOVASCULAR: Regular rhythm. S1, S2. No gallop or rub. LUNGS: Essentially clear. Prolonged expiratory phase. HEART: Slight rales at the right base. ABDOMEN: Soft. Bowel sounds are normoactive without mass, guarding, rebound, organomegaly. EXTREMITIES: Reveal no clubbing, cyanosis, or edema. There is no Homans sign. SKIN: Warm and moist. No rash or excoriation. NEUROLOGIC: Awake, alert, oriented. No focal findings. LYMPHATICS: Lymphadenopathy is not present. Chest x-ray done yesterday shows no significant change in time, remains in opacification/infiltrate at the right base. CLINICAL IMPRESSION: 1. Continued right lower lobe infiltrate (pneumonitis?). 2. Small right pleural effusion. 3. Chronic atrial fibrillation. PLAN: Continue vigorous support. We will need to discuss with family if further intervention would be requested in view of this failure of the x-ray to resolve. We will see if the patient still requires supplemental oxygen and this can be weaned slowly and possibly discontinued. Antibiotics as per ID and primary medical doctor. We find overall clinical improvement, radiographic improvement may not be found for a prolonged period of time in the elderly. We will discuss with Dr. Chand and the patient's daughter, Natalya. We will follow closely with you as requested. Kev Liang MD
== END 2017-09-18 15:47 | DRG 193 ==
LOC: ED 07:40 → ERH 09:11 → 3RSO 14:43 → OBSVTOIN 19:50
PROVIDERS: ADMIT Internal Medicine Nephrology; ATTEND Internal Medicine Nephrology
DX: J18.9 Pneumonia, unspecified organism (principal); I50.21 Acute systolic (congestive) heart failure; T68.XXXA Hypothermia, initial encounter; I27.20 Pulmonary hypertension, unspecified; I48.2 Chronic atrial fibrillation; I08.3 Combined rheumatic disorders of mitral, aortic and tricuspid valves; R29.6 Repeated falls; I11.0 Hypertensive heart disease with heart failure; M81.0 Age-related osteoporosis without current pathological fracture; R00.1 Bradycardia, unspecified; E05.90 Thyrotoxicosis, unspecified without thyrotoxic crisis or storm; F29 Unspecified psychosis not due to a substance or known physiological condition; Z85.3 Personal history of malignant neoplasm of breast; Z79.01 Long term (current) use of anticoagulants; Z87.01 Personal history of pneumonia (recurrent); Z85.828 Personal history of other malignant neoplasm of skin; Z90.710 Acquired absence of both cervix and uterus

== ENCOUNTER 2017-09-18 15:47 | Inpatient (IN) | payer OTHER, BC ==
[2017-09-18] MEDS: Enoxaparin 80 mg Syringe SC SCH (17:48)
[2017-09-19 00:18] VITALS: BMI 26.9
[2017-09-19] MEDS ORDERED: Influenza Vaccine 60 mcg/0.5 mL SYR (4YR UP) IM ONE (00:18)
[2017-09-19] MEDS ORDERED: Pneumococcal 23-Valent Vaccine IM ONE (00:18)
[2017-09-19] MEDS: Enoxaparin 80 mg Syringe SC SCH ×2 (05:18→18:53)
[2017-09-19] MEDS: cefTRIAXone 1 gm 1 GM/100 ML BAG IVPB SCH (05:18)
[2017-09-19] MEDS ORDERED: Azithromycin 250 MG in Sodium Chloride 0.9% 250 ML IVPB SCH (06:00)
--- NOTE | 2017-09-19 07:52 | CP.PCM.PN ---
Subjective - Date & Time of Evaluation Date of Evaluation: 09/19/17 Time of Evaluation: 07:00 - Subjective Subjective: Stable on TCU now. No CP or SOB V/S noted. P 60s PE: Lungs: deminished BS right base Cor: irreg S1S2 Abd.: soft Ext.: no edema Neuro.: alert, confused Case D/W Dr. Chand and Dr. Noriega yesterday Objective - Vital Signs/Intake and Output Vital Signs (last 24 hours): Temp Pulse Resp BP Pulse Ox 97.4 F L 53 L 20 114/49 L 09/18/17 23:59 09/18/17 23:59 09/18/17 23:59 09/18/17 23:59 - Medications Medications: Current Medications Acetaminophen (Tylenol 325mg Tab) 650 mg PO Q4H PRN; Protocol PRN Reason: Pain, Mild (1-3) Amlodipine Besylate (Norvasc) 5 mg PO DAILY [facility] PRN Reason: Protocol Enoxaparin Sodium (Lovenox) 70 mg SC 0600,1800 [facility] PRN Reason: Protocol Last Admin: 09/19/17 05:18 Dose: 70 mg Ceftriaxone Sodium (Rocephin 1 Gram Ivpb) 1 gm in 100 mls @ 100 mls/hr IVPB 0600 [facility] PRN Reason: Protocol Stop: 09/26/17 06:59 Last Admin: 09/19/17 05:18 Dose: 100 mls/hr Azithromycin 250 mg/ Sodium (Chloride) 250 mls @ 167 mls/hr IVPB 0600 [facility] PRN Reason: Protocol Last Admin: 09/19/17 05:19 Dose: 167 mls/hr Nystatin (Nystop Topical Powder) 1 gm TOP DAILY [facility] PRN Reason: Protocol Ropinirole HCl (Requip) 0.25 mg PO HS [facility] PRN Reason: Protocol Last Admin: 09/18/17 21:33 Dose: 0.25 mg Assessment and Plan - Assessment and Plan (Free Text) Assessment: Acute and chronic dizzy spells with falls at home Chronic AF, slow rates with 2 - 3 sec pauses on tel. Pneumonia Pleural effusion Echo: Mild AI and MR, moderate TR and mod/sev. PH Confusion HBP H/O breast cancer Hysterectomy Orthopedic surgeries: right knee, arm Plan: As per pulm. and Dr. Mannie Aleman for AF F/U CXR later To [facility] for EP evaluation/possible PPM on Thursday. PT/Rehab Efforts
[2017-09-19] MEDS: Nystatin 100,000 Units/gm Topical Pow(15 gm) TOP SCH (10:30)
--- NOTE | 2017-09-19 10:47 | CARD ---
APPROVED REPORT EKG Measurement Heart [id number] <Conclusion> Atrial fibrillation with slow ventricular response Nonspecific ST and T wave abnormality LVH No change
--- NOTE | 2017-09-19 23:22 | PN ---
DATE: 09/19/2017 SUBJECTIVE: Patient has no complaints of any chest pain or shortness of breath. She is still confused. PHYSICAL EXAMINATION: VITAL SIGNS: Temperature is 97.5, pulse of 49, blood pressure 138/72, respirations 18. GENERAL: The patient is lying in bed, flat, comfortable. HEENT: No oral lesion. Anicteric sclerae. Moist mucosa. NECK: No JVD, adenopathy, or thyromegaly. CARDIOVASCULAR: S1 and S2, regular. No murmurs, rubs, or gallops. LUNGS: Clear to auscultation bilaterally. No wheeze, rales, or rhonchi. ABDOMEN: Bowel sounds are positive, soft, nontender and nondistended. EXTREMITIES: No cyanosis, clubbing or edema. ASSESSMENT: 1. Bradycardia. 2. Delirium. 3. Community-acquired pneumonia, improving. 4. Hypertension. 5. Dizziness. 6. Congestive heart failure, stable. PLAN: The patient is being followed by Cardiology and Pulmonary. The patient for anticoagulation. She is on Norvasc for hypertension. She is going to be on ropinirole. She is on Rocephin and Zithromax. She is on her fifth day of antibiotics. She is waiting to go to [facility] for a pacemaker placement. Jasson Chand MD
--- NOTE | 2017-09-19 23:34 | CON ---
DATE: 09/19/2017 LOCATION: The patient is seen in room 315. CHIEF COMPLAINT: Weakness times several days. HISTORY OF PRESENT ILLNESS: This is an 87-year-old female with past medical history of atrial fibrillation, hyperthyroidism, history of basal cell cancer, history of pneumonia, who was admitted initially with diagnoses of congestive heart failure and pneumonia at the acute care, was seen and treated and found to have a left lower lobe pneumonia, which was improving and was treated with ceftriaxone and Zithromax. Today is day #5. Transferred to transitional care for further treatment. Infectious Disease consultation requested regarding antibiotic therapy. The patient has no fevers, no chills, no nausea, no vomiting, no chest pain. PAST MEDICAL HISTORY: Significant for atrial fibrillation, hyperthyroidism, basal cell cancer, history of pneumonia, history of an ovarian cyst. PAST SURGICAL HISTORY: Significant for hysterectomy and lumpectomy. ALLERGIES: THE PATIENT IS ALLERGIC TO TRIMETHOPRIM AND SULFAMETHOXAZOLE. MEDICATIONS AT HOME: Reviewed and showed amlodipine, warfarin, tramadol, digoxin. PHYSICAL EXAMINATION: VITAL SIGNS: The patient is in bed with a temperature of 98, heart rate of 58, respiratory rate of 20, blood pressure of 114/40. HEENT: Examination of HEENT is unremarkable. NECK: Supple. LUNGS: Have decreased breath sounds. HEART: Normal S1, S2. ABDOMINAL: Soft, nontender. No organomegaly. No rebound or guarding. No masses. LABORATORY EXAMINATION: Reveals a white count of 5.3, hemoglobin of 12, platelets of 164. Coagulation is noted. Chemistries reveals a BUN of 20, creatinine of 0.6. The BNP was 1170. The procalcitonin is less than 0.05. The influenza serology was negative and rather rapid test for influenza was negative. Urine for Legionella antigen was negative. Blood cultures are negative. Urine cultures are negative. Dr. Smith's note is reviewed. Dr. Smith relates that the patient has on echo mild aortic insufficiency, mitral regurgitation, moderate tricuspid regurg. ASSESSMENT AND PLAN: An 87-year-old female with atrial fibrillation, hyperthyroidism, basal cell carcinoma and pneumonia, history of ovarian cyst, history of lumpectomy, hysterectomy, admitted with acute systolic congestive heart failure with a right lower lobe community-acquired pneumonia in a patient with mitral insufficiency, aortic insufficiency, mitral regurgitation, on complete therapy with ceftriaxone and azithromycin. Today is day #5 of 7 days. We will change the azithromycin to p.o. and decrease the fluid and we will discontinue the ceftriaxone within the next 24 hours with a negative procalcitonin. The patient is doing well. We will follow with you. Of note is the patient's QTc is 420 on the EKG done from today. Today is day #5 of 7 days of antibiotics. Jb Robert MD
[2017-09-20] MEDS: cefTRIAXone 1 gm 1 GM/100 ML BAG IVPB SCH (05:13)
[2017-09-20] MEDS: Enoxaparin 80 mg Syringe SC SCH ×2 (05:13→18:00)
[2017-09-20 06:57] VITALS: RESP 18
--- NOTE | 2017-09-20 07:43 | CP.PCM.PN ---
Subjective - Date & Time of Evaluation Date of Evaluation: 09/20/17 Time of Evaluation: 07:00 - Subjective Subjective: Stable on TCU now. No CP or SOB V/S noted. P 49 - 58 recently PE: Lungs: deminished BS right base Cor: irreg S1S2 Abd.: soft Ext.: no edema Neuro.: alert ECG 09/19: AF at 53 BPM with long pauses Objective - Vital Signs/Intake and Output Vital Signs (last 24 hours): Temp Pulse Resp BP Pulse Ox 98.4 F 55 L 18 137/59 L 97 09/20/17 06:00 09/20/17 06:00 09/20/17 06:00 09/20/17 06:00 09/20/17 06:00 Intake and Output: 09/20/17 09/20/17 06:59 18:59 Output Total 550 Balance -550 - Medications Medications: Current Medications Acetaminophen (Tylenol 325mg Tab) 650 mg PO Q4H PRN; Protocol PRN Reason: Pain, Mild (1-3) Last Admin: 09/19/17 21:48 Dose: 650 mg Amlodipine Besylate (Norvasc) 5 mg PO DAILY [facility] PRN Reason: Protocol Last Admin: 09/19/17 10:30 Dose: Not Given Azithromycin (Zithromax) 250 mg PO DAILY [facility] PRN Reason: Protocol Stop: 09/23/17 10:01 Enoxaparin Sodium (Lovenox) 70 mg SC 0600,1800 [facility] PRN Reason: Protocol Last Admin: 09/20/17 05:13 Dose: 70 mg Ceftriaxone Sodium (Rocephin 1 Gram Ivpb) 1 gm in 100 mls @ 100 mls/hr IVPB 0600 [facility] PRN Reason: Protocol Stop: 09/26/17 06:59 Last Admin: 09/20/17 05:13 Dose: 100 mls/hr Nystatin (Nystop Topical Powder) 1 gm TOP DAILY [facility] PRN Reason: Protocol Last Admin: 09/19/17 10:30 Dose: 1 appl Ropinirole HCl (Requip) 0.25 mg PO HS [facility] PRN Reason: Protocol Last Admin: 09/19/17 21:45 Dose: 0.25 mg Assessment and Plan - Assessment and Plan (Free Text) Assessment: Acute and chronic dizzy spells with falls at home Chronic AF, slow rates with 2 - 3 sec pauses on tel. Pneumonia Pleural effusion Echo: Mild AI and MR, moderate TR and mod/sev. PH Confusion HBP H/O breast cancer Hysterectomy Orthopedic surgeries: right knee, arm Plan: As per pulm. and Dr. Mannie Aleman for AF. Hold after todays doses for possible PPM tomorrow F/U CXR today PAT labs today To [facility] for EP evaluation/possible PPM on Thursday. PT/Rehab Efforts
[2017-09-20 08:07] LABS: BASO # 0.03 K/mm3 (0.0-2.0); BASO % 0.4 % (0.0-3.0); EOS # 0.1 (0.0-0.7); EOS % 1.4 % (1.5-5.0); GRAN # 5.74 (1.4-6.5); GRAN % 72.1 % (50.0-68.0); HEMOGLOBIN 12.4 g/dL (12.0-16.0); LYMPH # 1.4 (1.2-3.4); LYMPH % 17.5 % (22.0-35.0); MEAN CELL VOLUME 94.1 fl (80.0-105.0); MEAN CORPUSCULAR HEMOGLOBIN 31.6 pg (25.0-35.0); MEAN CORPUSCULAR HGB CONC 33.6 g/dl (31.0-37.0); MEAN PLATELET VOLUME 10.1 fl (7.0-11.0); MONO # 0.7 (0.1-0.6); MONO % 8.6 % (1.0-6.0); RBC 3.92 10^6/uL (3.5-6.1); RED CELL DISTRIBUTION WIDTH 14.3 % (11.5-14.5)
[2017-09-20 08:15] LABS: BLOOD UREA NITROGEN 22 mg/dL (7-21); CALCIUM 9.5 mg/dL (8.4-10.5); GFR AFRICAN-AMERICAN > 60; GFR NON-AFRICAN AMERICAN > 60
[2017-09-20 08:18] LABS: INR 1.42 (0.93-1.08); PARTIAL THROMBOPLASTIN TIME 47.8 Seconds (25.1-36.5); PROTHROMBIN TIME 16.4 SECONDS (9.4-12.5)
[2017-09-20] MEDS: Nystatin 100,000 Units/gm Topical Pow(15 gm) TOP SCH (11:09)
--- NOTE | 2017-09-20 14:09 | PN ---
DATE: 09/20/2017 SUBJECTIVE: The patient is seen in room 315. No fevers and no chills. No nausea and vomiting. She is doing well. PHYSICAL EXAMINATION: Temperature is 97, blood pressure is 130/50, respiratory rate of 20, heart rate of 40. HEENT: Examination of HEENT is unremarkable. NECK: Supple. LUNGS: Have decreased breath sounds. HEART: Normal S1, S2. ABDOMEN: Soft, nontender. LABORATORY EXAMINATION: Reveals a white count of 8000, hemoglobin of 12, platelets of 163. Coagulation is noted. Chemistries reveals a BUN of 22, creatinine of 0.6. Review of orders reveals the patient to be on ceftriaxone and azithromycin. ASSESSMENT AND PLAN: This is an 87-year-old female, seen earlier in 315 with atrial fibrillation, hyperthyroidism, basal cell carcinoma and pneumonia and history of ovarian cyst with history of lumpectomy and hysterectomy, admitted with acute systolic congestive heart failure with a right lower lobe community-acquired pneumonia in a patient with mitral insufficiency, aortic insufficiency, mitral regurgitation and complete therapy with ceftriaxone and azithromycin. Today is day #6 of 7 days and we will follow with you. Jb Robert MD
[2017-09-20 17:29] VITALS: BP 132/71; PULSE 53; TEMP 97.6; O2SAT 96
--- NOTE | 2017-09-20 21:57 | RAD ---
HISTORY: F/U pneumonia COMPARISON: Comparison is made to the previous study. TECHNIQUE: PA and lateral views of the chest were obtained. FINDINGS: LUNGS: Interval improvement in the right lower lung since the previous exam. PLEURA: Small bilateral pleural effusion is again noted. CARDIOVASCULAR: Mild cardiomegaly. OSSEOUS STRUCTURES: No significant abnormalities. VISUALIZED UPPER ABDOMEN: Normal. OTHER FINDINGS: Surgical clips are seen at the right chest wall. IMPRESSION: Interval improvement in the right lower lung since the previous exam. Small bilateral pleural effusion.
[2017-09-21] MEDS: cefTRIAXone 1 gm 1 GM/100 ML BAG IVPB SCH (06:08)
--- NOTE | 2017-09-21 07:39 | PN ---
DATE: 09/21/2017 PULMONARY NOTE SUBJECTIVE: The patient appears comfortable this morning. She is not short of breath at rest. She remains confused. PHYSICAL EXAMINATION: VITAL SIGNS: (Last noted in the computer): Temperature is 97.6, pulse 53, respirations 18, blood pressure 132/71. Oxygen saturation on nasal cannula is 96%. HEENT: Normocephalic, atraumatic. NECK: No JVD. CARDIOVASCULAR: Systolic ejection murmur at the lower left sternal border. No S3 gallop. LUNGS: Less crackles noted at the right base. No rhonchi. No wheezing. EXTREMITIES: Mild edema. No cyanosis, no clubbing. Calves are nontender to palpation. GI: Abdomen is soft, nontender and nondistended. Bowel sounds are positive. SKIN: No acute rash. NEUROLOGIC: Exam limited at the present time. PERTINENT LABORATORY DATA: Chest x-ray was repeated on 09/20/2017 and reviewed. There is definite improvement-- with a decrease in the right lower lobe infiltrate. IMPRESSION: 1. Right lower lobe pneumonia-improved. 2. Small right pleural effusion. 3. Chronic atrial fibrillation with episodes of bradycardia. 4. Vertigo. PLAN: The patient appears very comfortable this morning. She is not short of breath at rest. She does remain confused. I discussed the case with the night nurse at length. I also discussed the case with the daughter-at bedside-at length. On physical exam, there is no significant bronchospasm noted. In addition, there is no significant alveolar-arterial gradient. I will continue with the aspiration precautions for now. The patient remains on antibiotic therapy-as per Infectious Disease. Input by Dr. Robert is noted. As above, the chest x-ray has improved significantly. Clinical status of the patient is definitely improved-compared to the initial presentation. The patient is for pacemaker insertion at [facility]-later today. I will discuss the above with Dr. Chand. Robert Barraza MD [facility]
--- NOTE | 2017-09-21 08:02 | CP.PCM.PN ---
Subjective - Date & Time of Evaluation Date of Evaluation: 09/21/17 Time of Evaluation: 07:00 - Subjective Subjective: Stable on TCU now. No CP or SOB. Still confused. Natalya is at her bedside this AM. V/S noted. P 49 - 62 recently PE: Lungs: deminished BS right base Cor: irreg S1S2 Abd.: soft Ext.: no edema Neuro.: alert, int. confusion, worse during the night ECG 09/19: AF at 53 BPM with long pauses CXR 09/20: improved infiltrate Labs 09/20 noted. Objective - Vital Signs/Intake and Output Vital Signs (last 24 hours): Temp Pulse Resp BP Pulse Ox 97.6 F 53 L 18 132/71 96 09/20/17 17:29 09/20/17 17:29 09/20/17 17:29 09/20/17 17:29 09/20/17 17:29 Intake and Output: 09/21/17 09/21/17 06:59 18:59 Intake Total 240 Output Total 950 Balance -710 - Medications Medications: Current Medications Acetaminophen (Tylenol 325mg Tab) 650 mg PO Q4H PRN; Protocol PRN Reason: Pain, Mild (1-3) Last Admin: 09/20/17 18:13 Dose: 650 mg Amlodipine Besylate (Norvasc) 5 mg PO DAILY PAUL PRN Reason: Protocol Last Admin: 09/20/17 11:11 Dose: 5 mg Azithromycin (Zithromax) 250 mg PO DAILY PAUL PRN Reason: Protocol Stop: 09/23/17 10:01 Last Admin: 09/20/17 11:10 Dose: 250 mg Enoxaparin Sodium (Lovenox) 70 mg SC 0600,1800 PAUL PRN Reason: Protocol Last Admin: 09/20/17 18:00 Dose: 70 mg Ceftriaxone Sodium (Rocephin 1 Gram Ivpb) 1 gm in 100 mls @ 100 mls/hr IVPB 0600 PAUL PRN Reason: Protocol Stop: 09/26/17 06:59 Last Admin: 09/21/17 06:08 Dose: 100 mls/hr Nystatin (Nystop Topical Powder) 1 gm TOP DAILY PAUL PRN Reason: Protocol Last Admin: 09/20/17 11:09 Dose: 1 appl Ropinirole HCl (Requip) 0.25 mg PO HS PAUL PRN Reason: Protocol Last Admin: 09/20/17 21:53 Dose: Not Given - Labs Labs: 09/20/17 08:00 09/20/17 08:00 PT 16.4 SECONDS (9.4-12.5) H 09/20/17 08:00 INR 1.42 (0.93-1.08) H 09/20/17 08:00 APTT 47.8 Seconds (25.1-36.5) H 09/20/17 08:00 Assessment and Plan - Assessment and Plan (Free Text) Assessment: Acute and chronic dizzy spells with falls at home Chronic AF, slow rates with 2 - 3 sec pauses on tel. Pneumonia Pleural effusion Echo: Mild AI and MR, moderate TR and mod/sev. PH Confusion HBP H/O breast cancer Hysterectomy Orthopedic surgeries: right knee, arm Plan: As per pulm., ID and Dr. Mannie MEDEL, as per ID To [facility] for EP evaluation/possible PPM later today. PT/Rehab Efforts Case D/W Natalya today at the bedside.
[2017-09-21] MEDS: Nystatin 100,000 Units/gm Topical Pow(15 gm) TOP SCH (09:46)
[2017-09-22] MEDS: cefTRIAXone 1 gm 1 GM/100 ML BAG IVPB SCH (05:27)
--- NOTE | 2017-09-22 06:19 | DS ---
SUBJECTIVE: Patient has no complaints of any headaches or dizziness. No nausea. No vomiting. She is going to [facility] for a pacemaker placement. I did speak to the patient's daughter Natalya this morning. PHYSICAL EXAMINATION: VITAL SIGNS: Temperature is 97.6, pulse of 53, blood pressure 132/71, respirations 18. GENERAL: The patient is lying in bed, flat, comfortable. HEENT: No oral lesion. Anicteric sclerae. Moist mucosa. NECK: No JVD, adenopathy, or thyromegaly. CARDIOVASCULAR: S1 and S2, regular. No murmurs, rubs, or gallops. LUNGS: Clear to auscultation bilaterally. No wheeze, rales, or rhonchi. ABDOMEN: Bowel sounds are positive, soft, nontender and nondistended. EXTREMITIES: No cyanosis, clubbing or edema. ASSESSMENT: 1. Delirium. 2. Bradycardia. 3. Community-acquired pneumonia, improving. 4. Hypertension. 5. Dizziness. 6. Congestive heart failure secondary to systolic dysfunction, stable. 7. Do no resuscitate/do not intubate. PLAN: The patient is on Lovenox for anticoagulation. Patient is on Norvasc for hypertension. She is on Requip. The patient is now going to be on antibiotics. She is on Xanax as needed. She is on heart-healthy diet. Jasson Chand MD
--- NOTE | 2017-09-23 14:13 | CON ---
DATE: 09/23/2017 NEUROLOGY CONSULT CHIEF COMPLAINT: Confusion. HISTORY OF PRESENT ILLNESS: This is an 87-year-old woman who is in TCU for reconditioning given that she had suffered from a right lower lobe pneumonia, on antibiotics. In addition, had bradycardia superimposed underlying AFib and status post pacemaker implant at [facility] and was brought back to TCU. She was noted to be confused. Very flat affect and agitated. She seems to be very delirious at times, but is not wanting to do things. She responds with 1-word answers. No focal weakness of the extremities. She moves all extremities equally, but is deconditioned. She is on Coumadin for her chronic AFib. Cardiology on board. MEDICATIONS: Reviewed by nurse reconciliation sheet. PAST MEDICAL HISTORY: As above, has history of hypertension, congestive heart failure, chronic AFib. ALLERGIES: SULFAMETHOXAZOLE AND TRIMETHOPRIM. SOCIAL HISTORY: No illicit drug use, smoking or EtOH abuse. REVIEW OF SYSTEMS: Fourteen-point review of systems negative except as per the HPI. FAMILY HISTORY: Noncontributory. PHYSICAL EXAMINATION: VITAL SIGNS: Temperature of 98, pulse rate of 60, blood pressure 144/76, respiratory rate of 18. GENERAL: The patient is lying in bed with a flat affect. Seems mostly depressed and agitated. HEENT: Atraumatic, normocephalic. PERRLA. Extraocular muscles intact. NECK: Supple. No JVD. No adenopathy noted. LUNGS: Slight decreased breath sounds bilaterally. HEART: S1, S2. Normal rate and rhythm. No murmurs, rubs or gallops. Pacemaker insertion site is clean and dry. ABDOMEN: Soft, nontender and nondistended. Bowel sounds are present. EXTREMITIES: No clubbing. No cyanosis. Peripheral pulses 2+ felt bilaterally. NEUROLOGIC: The patient has a flat affect, but is alert and oriented to person, place and year. Recall at 5 minutes is 0/3. Thought process is mildly agitated and seems very depressed affect. Cranial nerves II through XII intact. Speech is fluent without any errors. Motor exam: Normal tone. Moves all extremities equally. No pronator drift seen. Sensory exam: Withdraws to localized noxious stimulus. Light touch intact bilaterally. Proprioception intact bilaterally. DTRs are 2+ throughout and 1 at both knees and ankles. Coordination: Vrlbwm-[id number]-hnel intact. No dysmetria noted. Gait is deferred for now. LABORATORY DATA: Sodium is 142, potassium 4.3, chloride of 105, carbon dioxide of 30, BUN of 22, creatinine 0.6, random glucose 83. ASSESSMENT AND PLAN: This is an 87-year-old woman with history of chronic atrial fibrillation, on Coumadin; hypertension and congestive heart failure secondary to systolic dysfunction, who has underlying right lower lob acquired pneumonia, which is improving and found to have some underlying bradycardic-tachycardic syndrome and is clinically stable following pacemaker implant. I was consulted for confusion and agitation and flat affect. I felt like her overall confusion and agitation are hospital-induced delirium superimposed likely a depressed affect. At this time, 1. Recommend to encourage PT and OT for rehabilitation. 2. Avoid nighttime interruptions. 3. Delirium precautions entailed. 4. Avoid sedative medications. 5. Continue with PT, OT and Coumadin for underlying chronic atrial fibrillation and recommended CAT scan of the head to assess for any acute intracranial abnormalities. At this time, nothing focal is seen. Needs frequent orientation throughout the day. Overall prognosis is guarded. Thank you for this consult. Archie Berman MD
== END 2017-09-21 08:00 | disposition short-term general hospital (02) | DRG 194 ==
LOC: TRCU 15:47
PROVIDERS: ADMIT Internal Medicine Nephrology; ATTEND Internal Medicine Nephrology
PROC: F07Z9FZ Gait Training/Functional Ambulation Treatment using Assistive, Adaptive, Supportive or Protective Equipment (ICD-10-PCS; principal; 2017-09-19)
PROC: F08Z4FZ Home Management Treatment using Assistive, Adaptive, Supportive or Protective Equipment (ICD-10-PCS; 2017-09-19)
DX: J18.9 Pneumonia, unspecified organism (principal); R00.1 Bradycardia, unspecified; I50.22 Chronic systolic (congestive) heart failure; I11.0 Hypertensive heart disease with heart failure; Z79.2 Long term (current) use of antibiotics; I48.2 Chronic atrial fibrillation; E05.90 Thyrotoxicosis, unspecified without thyrotoxic crisis or storm; I08.0 Rheumatic disorders of both mitral and aortic valves; R41.0 Disorientation, unspecified; R42 Dizziness and giddiness; Z66 Do not resuscitate; Z87.01 Personal history of pneumonia (recurrent); Z79.01 Long term (current) use of anticoagulants; Z85.3 Personal history of malignant neoplasm of breast; Z85.828 Personal history of other malignant neoplasm of skin; Z90.710 Acquired absence of both cervix and uterus

== ENCOUNTER 2017-09-22 19:38 | Inpatient (IN) | payer OTHER, BC ==
[2017-09-22] MEDS ORDERED: Heparin25000 units/250ml 1/2NS 25,000 UNITS/250 ML BAG IV PRN (20:15)
[2017-09-22] MEDS ORDERED: Pneumococcal 23-Valent Vaccine IM ONE (22:49)
[2017-09-22] MEDS ORDERED: Influenza Vaccine 60 mcg/0.5 mL SYR (4YR UP) IM ONE (22:49)
[2017-09-23] MEDS ORDERED: cefTRIAXone 1 gm 1 GM/100 ML BAG IVPB SCH ×2 (06:00)
[2017-09-23] MEDS: Heparin25000 units/250ml 1/2NS 25,000 UNITS/250 ML BAG IV PRN (06:06)
[2017-09-23 07:17] LABS: PARTIAL THROMBOPLASTIN TIME 47.5 Seconds (25.1-36.5)
--- NOTE | 2017-09-23 08:13 | PN ---
DATE: PULMONARY NOTE SUBJECTIVE: The patient appears comfortable this morning. She is not short of breath at rest. She remains confused. OBJECTIVE VITAL SIGNS: Temperature is 98, pulse 60, respirations 16, blood pressure 144/76. HEENT: Normocephalic, atraumatic. NECK: No JVD. CARDIOVASCULAR: Systolic ejection murmur at the lower left sternal border. No S3 gallop. LUNGS: Minimal crackles at the right base. No rhonchi. No wheezing. EXTREMITIES: Mild edema. No cyanosis, no clubbing. Calves are nontender to palpation. GASTROINTESTINAL: Abdomen is soft, nontender and nondistended. Bowel sounds are positive. SKIN: No acute rash. NEUROLOGIC: Exam limited at the present time. IMPRESSION 1. Right lower lobe pneumonia. 2. Small right pleural effusion. 3. Chronic atrial fibrillation, with episodes of bradycardia. Status post pacemaker insertion. 4. Vertigo. 5. Confusion. PLAN: The patient appears comfortable this morning. She is not short of breath at rest. She remains confused. I did discuss the case with the night nurse at length. The night nurse confirms that the patient has been confused during her shift. On physical exam, there is no significant bronchospasm noted. I will continue with the aspiration precautions - given the patient's fluctuation in mental status. I would also continue with the current antibiotic therapy. The last chest x-ray done did show definite improvement. The patient is status post pacemaker insertion at [facility]. Clinical status of the patient is improved, overall. However, her future status/prognosis does remain guarded. I will discuss the above with Dr. Chand. Robert Barraza MD TESS
[2017-09-23 10:23] LABS: INR 1.24 (0.93-1.08); PROTHROMBIN TIME 14.3 SECONDS (9.4-12.5)
--- NOTE | 2017-09-23 12:58 | PN ---
DATE: SUBJECTIVE: The patient is seen lying in bed in the TCU. She is somewhat agitated and restless. She appears confused and feels that she is not being taken care properly. She is somewhat belligerent. Her current medications include Coumadin 4 mg daily, digoxin 0.125 mg alternating with 0.25 mg daily, Norvasc 5 mg daily, ReQuip 0.25 mg t.i.d., Rocephin once daily, Ultram and Zithromax. PHYSICAL EXAMINATION GENERAL: She is a very elderly woman who appears somewhat restless and confused. VITAL SIGNS: Her blood pressure is 144/76 with a pulse of 60, respirations are 16. She is afebrile. HEENT: No JVD. CHEST: Good bilateral breath sounds. HEART: PMI displaced laterally. Systolic murmur, left sternal border. Pacemaker insertion site is clean and dry. ABDOMEN: Soft, nontender. Normoactive bowel sounds. EXTREMITIES: No edema. DIAGNOSTIC DATA: Blood work pending. IMPRESSION: 1. Bradycardia-tachycardia syndrome, clinically stable following pacemaker implant. 2. Chronic atrial fibrillation. 3. Hospital-induced delirium. 4. Rest of the problems as noted. RECOMMENDATIONS: Continued Coumadin loading as advised. Increased activity and exercise were encouraged. Daily monitoring of INR will be planned. We will continue to follow and make further recommendations as appropriate. Pierre Barbosa MD
[2017-09-23] MEDS: Digoxin 125 mcg (0.125 mg) Tab PO SCH (14:56)
--- NOTE | 2017-09-23 15:12 | PN ---
DATE: 09/23/2017 SUBJECTIVE: The patient has no complaints of any chest pain. No shortness of breath. No headaches. She is confused this morning. She came back from [facility] after she had a pacemaker placed. The initial H&P from the patient's hospitalization at [facility] was reviewed and I agree with. I will continue this H&P for this admission in the Transitional Care unit. PHYSICAL EXAMINATION: VITAL SIGNS: Temperature is 98, pulse of 60, blood pressure 144/76, respirations 12. GENERAL: The patient is lying in bed, flat, comfortable. HEENT: No oral lesion. Anicteric sclerae. Moist mucosa. NECK: No JVD, adenopathy, or thyromegaly. CARDIOVASCULAR: S1 and S2, regular. No murmurs, rubs, or gallops. LUNGS: Clear to auscultation bilaterally. No wheeze, rales, or rhonchi. ABDOMEN: Bowel sounds are positive, soft, nontender, and nondistended. EXTREMITIES: No cyanosis, clubbing, or edema. ASSESSMENT: 1. Bradycardia, status post pacemaker placement. 2. Community-acquired pneumonia, resolved. 3. Hypertension. 4. Congestive heart failure secondary to systolic dysfunction. 5. DNR/DNI. 6. Delirium. 7. Dementia. PLAN: The patient is on Coumadin, this will be continued. She is going to be on digoxin. She is on Requip for restless leg. The patient is on antibiotics with Rocephin and Zithromax. The patient has finished with her antibiotic treatment. I will discontinue the patient's Zithromax and Rocephin. Jasson Chand MD
[2017-09-23] MEDS ORDERED: Digoxin 125 mcg (0.125 mg) Tab PO SCH (20:15)
[2017-09-24 04:13] LABS: INR 1.26 (0.93-1.08); PROTHROMBIN TIME 14.4 SECONDS (9.4-12.5)
[2017-09-24 07:34] LABS: PARTIAL THROMBOPLASTIN TIME 41.3 Seconds (25.1-36.5)
--- NOTE | 2017-09-24 08:11 | CP.PCM.PN ---
Subjective - Date & Time of Evaluation Date of Evaluation: 09/24/17 Time of Evaluation: 07:00 - Subjective Subjective: Stable in TCU, s/p EP eval/PPM at [facility] 09/22/17. Still confused. No CP or SOB. V/S noted. P 61 - 76 PE: Lungs: clear Cor.: S1S2 Abd: soft Ext.: no edema Neuro.: alert, confused I/O = 220/500 recorded INR 1.26, PTT = 41 Objective - Vital Signs/Intake and Output Vital Signs (last 24 hours): Temp Pulse Resp BP Pulse Ox 97.3 F L 61 20 135/72 99 09/24/17 06:00 09/24/17 06:00 09/24/17 06:00 09/23/17 16:00 09/24/17 06:00 Intake and Output: 09/24/17 09/24/17 06:59 18:59 Intake Total 120 Output Total 500 Balance -380 - Medications Medications: Current Medications Acetaminophen (Tylenol 325mg Tab) 650 mg PO Q6H PRN; Protocol PRN Reason: mild pain Amlodipine Besylate (Norvasc) 5 mg PO DAILY PAUL PRN Reason: Protocol Last Admin: 09/23/17 10:56 Dose: 5 mg Digoxin (Lanoxin) 0.25 mg PO Q48H PAUL PRN Reason: Protocol Digoxin (Digoxin) 0.125 mg PO Q48H PAUL PRN Reason: Protocol Last Admin: 09/23/17 14:56 Dose: 0.125 mg Heparin Sodium/Sodium Chloride (Heparin 11140 Units/250ml 1/2 Normal Saline) 25 ,000 units in 250 mls @ 7.36 mls/hr IV .Q24H PRN; Protocol PRN Reason: ADJUST RATE PER PROTOCOL Last Titration: 09/23/17 10:21 Dose: 9.3 mls/hr Ropinirole HCl (Requip) 0.25 mg PO TID PAUL PRN Reason: Protocol Last Admin: 09/23/17 18:11 Dose: 0.25 mg Tramadol HCl (Ultram) 50 mg PO Q6H PRN; Protocol PRN Reason: severe pain Warfarin Sodium (Coumadin) 4 mg PO 1800 PAUL PRN Reason: Protocol Last Admin: 09/23/17 18:11 Dose: 4 mg - Labs Labs: PT 14.4 SECONDS (9.4-12.5) H 09/24/17 03:30 INR 1.26 (0.93-1.08) H 09/24/17 03:30 APTT 41.3 Seconds (25.1-36.5) H 09/24/17 03:30 Assessment and Plan - Assessment and Plan (Free Text) Assessment: Acute and chronic dizziness, falls at home Chronic AF with slow rate, s/p PPM 09/22/17 Pneumonia/Pleural effusions Confusion/Delerium HBP H/O Breast cancer S/P Hysterectomy Echo: Mild AI and MR, Mod. TR and mod/sev PH. Plan: Check ECG Warfarin 6 mg. today Heparin by PTTs until INR > 1.8 Possible neuro eval. OOB as aga/PT/Rehab.
[2017-09-24] MEDS: Heparin25000 units/250ml 1/2NS 25,000 UNITS/250 ML BAG IV PRN (08:54)
--- NOTE | 2017-09-24 09:29 | PN ---
DATE: PULMONARY NOTE The patient appears comfortable this morning. She is not short of breath at rest. She remains confused. OBJECTIVE VITAL SIGNS: Temperature is 97.3, pulse 61, respirations 18, blood pressure 135/72. Oxygen saturation on room air is 99%. HEENT: Normocephalic, atraumatic. NECK: No JVD. CARDIOVASCULAR: Systolic ejection murmur at the lower left sternal border. No S3 gallop. LUNGS: Minimal crackles at the right base; otherwise, clear. EXTREMITIES: Mild edema. No cyanosis, no clubbing. Calves are nontender to palpation. GASTROINTESTINAL: Abdomen is soft, nontender and nondistended. Bowel sounds are positive. SKIN: No acute rash. NEUROLOGIC: Exam limited at the present time. IMPRESSION 1. Right lower lobe pneumonia. 2. Small right pleural effusion. 3. Cardiac arrhythmias. Status post pacemaker insertion. 4. Vertigo. 5. Confusion. PLAN: The patient appears comfortable this morning. She is not short of breath at rest. She remains confused. I did discuss the case with the daughter - at bedside - at length. The patient was seen by Dr. Berman (Neurology) last night. I would also consider a psychiatric evaluation at this point in time. On physical exam, there is no bronchospasm noted. In addition, the oxygen saturation on room air is 99%. The patient is now off antibiotic therapy. There are no temperatures noted. I will continue with the aspiration precautions for now. Clinical status of the patient is certainly improved - compared to her initial presentation. However, again, the overall status/prognosis for this elderly patient does remain guarded. I will discuss the above with the attending physician. Robert Barraza MD TESS
[2017-09-24] MEDS: Digoxin 250 mcg (0.25 mg) Tab PO SCH (13:12)
--- NOTE | 2017-09-24 15:56 | CARD ---
APPROVED REPORT EKG Measurement Heart [id number] <Conclusion> Demand pacemaker, interpretation is based on intrinsic rhythm Atrial fibrillation with premature ventricular or aberrantly conducted complexes Moderate voltage criteria for LVH, may be normal variant Inferior infarct, age undetermined ST & T wave abnormality, consider anterolateral ischemia or digitalis effect Abnormal ECG
[2017-09-24] MEDS ORDERED: Digoxin 250 mcg (0.25 mg) Tab PO SCH (20:15)
--- NOTE | 2017-09-24 21:05 | PCM.PSYCH ---
Initial Psychiatric Evaluation - Initial Psychiatric Evaluation Legal Status: Other (Patient is a DNR/D and on a) Chief Complaint (in patient's own words): Patient reportedly having auditory hallucinations and some confusion. Had been admitted with a history of falls, atrial fibrillation and dizzy spells. Patient's Reaction to Hospitalization: Patient seems unaware that she is in the hospital. The thing she is in some facility in [place] History of Present Illness and Precipitating Events: As far as can be determined the patient does not have a prior psychiatric history. She reportedly lives by herself. She informs me she has one child who lives in [place] and 4 children in total one daughter reportedly works in [employer] [facility] [employer] The patient is presently on Requip; presumably for a restless leg syndrome. At this juncture it is uncertain to this examiner how long she has been on this or if there has been any dosage adjustment were of its efficacy. If this is of recent onset, and perhaps even if it is of a more sustained onset, as this by itself really couldn't elicit the patient's psychotic ideation. Will thus stop while starting low dose Risperdal. Current Medications: Active Medications Generic Name Dose Route Start Last Admin Trade Name Freq PRN Reason Stop Dose Admin Acetaminophen 650 mg 09/22/17 20:15 Tylenol 325mg Tab PO Q6H PRN mild pain Protocol Amlodipine Besylate 5 mg 09/23/17 10:00 09/24/17 09:02 Norvasc PO 5 mg DAILY PAUL Administration Protocol Digoxin 0.25 mg 09/24/17 14:00 09/24/17 13:12 Lanoxin PO 0.25 mg Q48H PAUL Administration Protocol Digoxin 0.125 mg 09/23/17 14:00 09/23/17 14:56 Digoxin PO 0.125 mg Q48H PAUL Administration Protocol Heparin Sodium/Sodium Chloride 25,000 units in 250 mls @ 7.36 mls/hr 09/22/17 23:17 09/24/17 08:54 Heparin 35441 Units/250ml 1/2 Normal Saline IV 11 mls/hr .Q24H PRN Administration ADJUST RATE PER PROTOCOL Protocol Risperidone 0.25 mg 09/25/17 10:00 Risperdal Tab PO DAILY PAUL Tramadol HCl 50 mg 09/22/17 20:15 Ultram PO Q6H PRN severe pain Protocol Warfarin Sodium 10 mg 09/24/17 18:00 09/24/17 18:04 Coumadin PO 10 mg 1800 PAUL Administration Protocol Past Psychiatric History - Past Psychiatric History Previous Treatment History: None Prior Psychiatric Treatment: Uncertain but patient denies History of Abuse: D diabetes History of ETOH/Drug Use: Denies History of Family Illness: Denies but patient and unsteady historian. Pertinent Medical Hx (Current Medical&Sleep Prob, Allergies): Allergies Allergy/AdvReac Type Severity Reaction Status Date / Time sulfamethoxazole Allergy RASH Verified 09/22/17 19:59 [From Bactrim] trimethoprim [From Bactrim] Allergy RASH Verified 09/22/17 19:59 Warfarin Sodium [Coumadin] 2 mg PO DAILY 06/10/14 Digoxin 0.25 mg PO DAILY 10/13/14 Ropinirole HCl [Requip] 0.25 mg PO HS 11/14/15 Tramadol HCl/Acetaminophen [Ultracet 325 mg-37.5 mg] 1 tab PO DAILY PRN amLODIPine [Norvasc] 5 mg PO DAILY 11/14/15 Review of Systems - EENT Eyes: As Per HPI Ears: As Per HPI Nose/Mouth/Throat: As Per HPI - Breasts Breasts: As Per HPI - Cardiovascular Cardiovascular: As Per HPI - Respiratory Respiratory: As Per HPI - Gastrointestinal Gastrointestinal: As Per HPI - Genitourinary Genitourinary: As Per HPI - Reproductive: Female Reproductive:Female: As Per HPI - Musculoskeletal Musculoskeletal: As Par HPI - Integumentary Integumentary: As Per HPI - Neurological Neurological: Behavioral Changes, Disequilibrium, Dizziness, Memory Loss, Restless Legs Additional comments: Uncertain at this time if Requip is for restless leg syndrome - Psychiatric Psychiatric: Auditory Hallucinations, Behavioral Changes, Confusion, Depression , Difficulty Concentrating, Hallucinations, Memory Loss - Endocrine Endocrine: As Per HPI - Hematologic/Lymphatic Hematologic: As Per HPI Mental Status Examination - Affect Affect: Constricted - Motor Activity Motor Activity: Calm - Reliability in Providing Information Reliability in Providing Information: Poor, due to cognitve impairment - Speech Speech: Relevant, Coherent - Mood Mood: Neutral - Formal Thought Process Formal Thought Process: Hallucinations, Delusions - Hallucinations/Delusions Hallucinations: Auditory - Obsessions/Compulsions Obsessions: None Compulsions: None - Cognitive Functions Orientation: Person Sensorium: Alert Attention/Concentration: Easily distracted Estimate of Intelligence: Average Judgement: Imparied, as evidence by: Lack of insight into illness Memory: Recent impaired, as evidenced by: Other - Strength & Assets Inventory Strength & Assets Inventory: Family support, Cooperative - Limitations Limitations: Living alone, Decreased memory, recent, Other DSM 5 DX - DSM 5 DSM 5 Diagnosis: Delirium versus dementia - Recommended/Plan of Treatment Treatment Recommendations and Plan of Treatment: Have stopped Requip for now. If recent initiationthis might be contributory if not causative of her psychotic ideation we'll have to monitor for restless leg syndrome will at same time start low dose Risperdal in an attempt to paly 8/ alleviate psychotic ideation. Prognosis: Fair
[2017-09-25 02:07] LABS: PARTIAL THROMBOPLASTIN TIME 75.6 Seconds (25.1-36.5)
[2017-09-25 07:21] LABS: INR 2.07 (0.93-1.08); PARTIAL THROMBOPLASTIN TIME 95.8 Seconds (25.1-36.5); PROTHROMBIN TIME 24.2 SECONDS (9.4-12.5)
[2017-09-25 07:29] LABS: INR 1.7 (0.93-1.08); PROTHROMBIN TIME 19.8 SECONDS (9.4-12.5)
--- NOTE | 2017-09-25 08:40 | PN ---
DATE: PULMONARY NOTE SUBJECTIVE: The patient appears comfortable this morning. She is not short of breath at rest. She remains confused, but much less agitated. OBJECTIVE VITAL SIGNS: Temperature is 97.7, pulse 61, respirations 18, blood pressure 124/71. Oxygen saturation on nasal cannula is 97%. HEENT: Normocephalic, atraumatic. NECK: No JVD. CARDIOVASCULAR: Systolic ejection murmur at the lower left sternal border. No S3 gallop. LUNGS: Minimal crackle at the right base; otherwise, clear. EXTREMITIES: Mild edema. No cyanosis, no clubbing. Calves are nontender to palpation. GASTROINTESTINAL: Abdomen is soft, nontender and nondistended. Bowel sounds are positive. SKIN: No acute rash. NEUROLOGIC: Exam limited at the present time. IMPRESSION 1. Right lower lobe pneumonia. 2. Small right pleural effusion. 3. Cardiac arrhythmias. Status post pacemaker insertion. 4. Vertigo. 5. Confusion. PLAN: The patient appears comfortable this morning. She is not short of breath at rest. She remains confused, but much less agitated. I would continue the neurologic and psychiatric evaluations. Inputs are noted. On physical exam, there is no bronchospasm noted. In addition, there is no significant alveolar-arterial gradient. The patient remains off antibiotic therapy. I will continue with the aspiration precautions. Clinical status of the patient is certainly improved - compared to her initial presentation. However, she does remain guarded, overall. I will discuss the above with the attending physician. Robert Barraza MD MTDKate
[2017-09-25] MEDS: Digoxin 125 mcg (0.125 mg) Tab PO SCH (13:44)
--- NOTE | 2017-09-25 14:19 | PN ---
DATE: 09/25/2017 SUBJECTIVE: The patient was seen sitting in a chair in the TCU. She appears more comfortable today. She is less restless and agitated. CURRENT MEDICATIONS: Include Coumadin, digoxin 0.125 mg daily alternating with 0.25 mg daily, Norvasc 5 mg daily, Risperdal 0.25 mg at bedtime. and Ultram p.r.n. as well as IV heparin. OBJECTIVE GENERAL: She is a very elderly woman, appears comfortable at rest. VITAL SIGNS: Her blood pressure is 100/60 with a pulse of 60 and respirations are 16. She is afebrile. HEENT: No JVD. CHEST: A few scattered rhonchi. HEART: PMI displaced laterally with an irregularly irregular rhythm and systolic murmur in the left sternal border. ABDOMEN: Soft, nontender. Normoactive bowel sounds. EXTREMITIES: No edema. DIAGNOSTIC DATA: INR 2.07. PTT 96. IMPRESSION 1. Conduction system disease, status post permanent pacemaker implant, clinically stable. 2. Chronic atrial fibrillation, now with therapeutic INR. 3. Confusion and delirium, clinically improved. 4. History of breast cancer, stable at present. RECOMMENDATIONS: Coumadin will be continued at this time. Heparin can be discontinued. Increase the activities as tolerated and as advised. Outpatient followup will be arranged as well as the pacemaker and followup. We will be happy to follow and make further recommendations as appropriate. Pierre Barbosa MD
--- NOTE | 2017-09-25 16:06 | PCM.PYCHPN ---
Psychiatric Progress Note - Psychiatric Progress Note Patient seen today, length of contact: 25 Patient Chief Complaint: Patient reportedly having auditory hallucinations and some confusion. Had been admitted with a history of falls, atrial fibrillation and dizzy spells. Problems Identified/Issues Discussed: Patient had been having gross psychotic ideation yesterday the day before. Presently indicates she had seen clothing and people at her window so earlier this morning but not presently. Review with nursing indicates patient has improved significantly since yesterday 's intervention of decreasing Requip and starting low-dose respiradol The patient will seem also seems to be more focused and oriented Medical Problems: Status post pneumonia, bradycardia, hypertension, congestive heart failure due to systolic defect, recent pneumonia, Diagnostic Results: Laboratory Results - last 24 hr 09/24/17 09/25/17 09/25/17 19:15 01:45 06:30 PT 19.8 H 24.2 H INR 1.70 H 2.07 H APTT 76.7 H 75.6 H 95.8 H DSM 5 Symptoms Update: Alert, oriented, think she is in a hospital in [place] (which is an improvement from yesterday when she thought we were in [place]). Aware of recent political events. Certain about the way she looks "like the wrath of God " Medication Change: No Medical Record Reviewed: Yes Consults ordered or reviewed: Reviewed Mental Status Examination - Cognitive Function Orientation: Person, Situation, Time Memory: Impaired Attention: WNL Concentration: WNL Association: WNL - Mood Mood: Neutral - Affect Affect: Constricted - Formal Thought Process Formal Thought Process: Hallucinations, Delusions - Suicidal Ideation Suicidal Ideation: No - Homicidal Ideation Homicidal Ideation: No Goal/Treatment Plan - Goal/Treatment Plan Progress Toward Problem(s) and Goals/Treatment Plan: Have stopped Requip for now. If recent initiationthis might be contributory if not causative of her psychotic ideation we'll have to monitor for restless leg syndrome will at same time start low dose Risperdal in an attempt to paly 8/ alleviate psychotic ideation. Discussion with nursing indicates patient is much improved. This is my clinical assessment as well. Will discuss case with daughter.
--- NOTE | 2017-09-26 00:05 | CP.PCM.PN ---
Subjective - Date & Time of Evaluation Date of Evaluation: 09/24/17 Time of Evaluation: 10:00 - Subjective Subjective: She is comfortable in bed. As per staff nurse had hallucinations since morning. denies chest pain. On heparin drip. INR subtherapeutic. Objective - Vital Signs/Intake and Output Vital Signs (last 24 hours): Temp Pulse Resp BP Pulse Ox 97.7 F 60 18 118/65 99 09/25/17 16:24 09/25/17 16:24 09/25/17 16:24 09/25/17 16:24 09/25/17 16:24 - Medications Medications: Current Medications Acetaminophen (Tylenol 325mg Tab) 650 mg PO Q6H PRN; Protocol PRN Reason: mild pain Amlodipine Besylate (Norvasc) 5 mg PO DAILY [facility] PRN Reason: Protocol Last Admin: 09/25/17 10:05 Dose: Not Given Digoxin (Lanoxin) 0.25 mg PO Q48H [facility] PRN Reason: Protocol Last Admin: 09/24/17 13:12 Dose: 0.25 mg Digoxin (Digoxin) 0.125 mg PO Q48H [facility] PRN Reason: Protocol Last Admin: 09/25/17 13:44 Dose: 0.125 mg Risperidone (Risperdal Tab) 0.25 mg PO HS [facility] Last Admin: 09/25/17 21:37 Dose: 0.25 mg Tramadol HCl (Ultram) 50 mg PO Q6H PRN; Protocol PRN Reason: severe pain Warfarin Sodium (Coumadin) 3 mg PO 1800 [facility] PRN Reason: Protocol - Labs Labs: PT 24.2 SECONDS (9.4-12.5) H 09/25/17 06:30 INR 2.07 (0.93-1.08) H 09/25/17 06:30 APTT 95.8 Seconds (25.1-36.5) H 09/25/17 06:30 - Constitutional Appears: Chronically Ill - Head Exam Head Exam: ATRAUMATIC, NORMAL INSPECTION, NORMOCEPHALIC - Eye Exam Eye Exam: Normal appearance Pupil Exam: NORMAL ACCOMODATION - ENT Exam ENT Exam: Mucous Membranes Moist, Normal Exam - Neck Exam Neck Exam: Normal Inspection - Respiratory Exam Respiratory Exam: Clear to Ausculation Bilateral, NORMAL BREATHING PATTERN - GI/Abdominal Exam GI & Abdominal Exam: Soft, Normal Bowel Sounds - Extremities Exam Extremities Exam: Normal Inspection - Back Exam Back Exam: NORMAL INSPECTION - Neurological Exam Neurological Exam: Awake - Psychiatric Exam Additional comments: hallucinations - Skin Skin Exam: Pallor, Warm Assessment and Plan - Assessment and Plan (Free Text) Assessment: 1. CAP- resolved. 2. Heparin drip. coumadin 10 mg PO today. 3. delirium : Psych consult Dr. Spaulding requested. 4. PT to continue. 5. oral intake poor. 6. CV: stable. Dr. Smith following.
--- NOTE | 2017-09-26 00:15 | CP.PCM.PN ---
Subjective - Date & Time of Evaluation Date of Evaluation: 09/25/17 Time of Evaluation: 11:00 - Subjective Subjective: GC improved. She is sitting in chair. No hallucinations today. She participated in PT today. No events overnight. INR therapeutic today. Objective - Vital Signs/Intake and Output Vital Signs (last 24 hours): Temp Pulse Resp BP Pulse Ox 97.7 F 60 18 118/65 99 09/25/17 16:24 09/25/17 16:24 09/25/17 16:24 09/25/17 16:24 09/25/17 16:24 - Medications Medications: Current Medications Acetaminophen (Tylenol 325mg Tab) 650 mg PO Q6H PRN; Protocol PRN Reason: mild pain Amlodipine Besylate (Norvasc) 5 mg PO DAILY [facility] PRN Reason: Protocol Last Admin: 09/25/17 10:05 Dose: Not Given Digoxin (Lanoxin) 0.25 mg PO Q48H [facility] PRN Reason: Protocol Last Admin: 09/24/17 13:12 Dose: 0.25 mg Digoxin (Digoxin) 0.125 mg PO Q48H [facility] PRN Reason: Protocol Last Admin: 09/25/17 13:44 Dose: 0.125 mg Risperidone (Risperdal Tab) 0.25 mg PO HS [facility] Last Admin: 09/25/17 21:37 Dose: 0.25 mg Tramadol HCl (Ultram) 50 mg PO Q6H PRN; Protocol PRN Reason: severe pain Warfarin Sodium (Coumadin) 3 mg PO 1800 [facility] PRN Reason: Protocol - Labs Labs: PT 24.2 SECONDS (9.4-12.5) H 09/25/17 06:30 INR 2.07 (0.93-1.08) H 09/25/17 06:30 APTT 95.8 Seconds (25.1-36.5) H 09/25/17 06:30 - Constitutional Appears: Chronically Ill - Head Exam Head Exam: ATRAUMATIC, NORMAL INSPECTION, NORMOCEPHALIC - Eye Exam Eye Exam: Normal appearance - ENT Exam ENT Exam: Mucous Membranes Moist - Neck Exam Neck Exam: Normal Inspection - Respiratory Exam Respiratory Exam: NORMAL BREATHING PATTERN - Cardiovascular Exam Cardiovascular Exam: REGULAR RHYTHM, +S1, +S2 - GI/Abdominal Exam GI & Abdominal Exam: Soft, Normal Bowel Sounds - Extremities Exam Extremities Exam: Normal Inspection - Back Exam Back Exam: NORMAL INSPECTION - Skin Skin Exam: Pallor, Warm Assessment and Plan - Assessment and Plan (Free Text) Assessment: GC improved. She participated in PT today. 1. CAP- resolved. 2. DC heparin drip. Decrease coumadin to 3mg PO daily. PT, INR daily. 3. delirium : Psych consult Dr. Spaulding appreciated. . 4. PT to continue. 5. oral intake improved today. 6. CV: stable. Dr. Smith following.
[2017-09-26 07:30] LABS: PROTHROMBIN TIME 57.8 SECONDS (9.4-12.5)
[2017-09-26 07:32] LABS: INR 4.87 (0.93-1.08)
--- NOTE | 2017-09-26 08:34 | PN ---
DATE: PULMONARY NOTE SUBJECTIVE: The patient appears comfortable this morning. She is not short of breath at rest. She remains confused. OBJECTIVE VITAL SIGNS (last noted in the computer): Temperature is 97.7, pulse 60, respirations 18, blood pressure 118/65. Oxygen saturation on room air is 99%. HEENT: Normocephalic, atraumatic. NECK: No JVD. CARDIOVASCULAR: Systolic ejection murmur at the lower left sternal border. No S3 gallop. LUNGS: Minimal crackles - right base; otherwise, clear. EXTREMITIES: Mild edema. No cyanosis, no clubbing. Calves are nontender to palpation. GASTROINTESTINAL: Abdomen is soft, nontender and nondistended. Bowel sounds are positive. SKIN: No acute rash. NEUROLOGIC: Exam limited at the present time. IMPRESSION 1. Right lower lobe pneumonia. 2. Small right pleural effusion. 3. Cardiac arrhythmias. Status post pacemaker insertion. 4. Vertigo. 5. Confusion. PLAN: The patient appears comfortable this morning. She is not short of breath at rest. She remains confused. I did discuss the case with the night nurse at length. The night nurse confirms that the patient has been confused during her shift. I would continue with the neurologic and psychiatric evaluations. On physical exam, there is no significant bronchospasm noted. In addition, there is no significant alveolar-arterial gradient. I will continue with the aspiration precautions for now. The patient remains off antibiotic therapy. There are no temperatures noted. Pulmonary status of the patient is certainly improved - compared to the initial presentation. However, her overall status/prognosis does remain guarded. I will discuss the above the attending physician. Robert Barraza MD TESS
--- NOTE | 2017-09-26 13:27 | PN ---
DATE: 09/26/2017 SUBJECTIVE: The patient was seen lying in bed in the Transitional Care Unit. She is comfortable at the present time. She denies any chest pain or dyspnea. Her INR this morning is 4.87. CURRENT MEDICATIONS: Include digoxin 0.125 mg alternating with 0.25 mg, Norvasc 5 mg daily, Risperdal, and Ultram p.r.n. Coumadin has been placed on hold. PHYSICAL EXAMINATION: GENERAL: She is a very elderly woman, who appears comfortable at rest. VITAL SIGNS: Her blood pressure is 118/66 with a pulse of 60, respirations are 16. She is afebrile. HEENT: No JVD. CHEST: A few scattered rhonchi. Pacemaker site is clean and dry. HEART: Soft systolic murmur present in the left sternal border. ABDOMEN: Soft, nontender, normoactive bowel sounds. EXTREMITIES: No edema. LABORATORY DATA: As mentioned, the INR is 4.87. IMPRESSION: 1. Conduction system disease, status post permanent pacemaker implant, that is clinically stable. 2. Chronic atrial fibrillation. 3. Elevated INR secondary to excessive anticoagulation. 4. Confusion and delirium, clinically improved. RECOMMENDATIONS: Coumadin will be withheld and repeat INR performed in the morning. Increase activity as tolerated is advised. Hopefully, a discharge home soon will be possible. I will be happy to follow as needed. Pierre Barbosa MD
[2017-09-26] MEDS: Digoxin 250 mcg (0.25 mg) Tab PO SCH (13:52)
--- NOTE | 2017-09-26 19:57 | PCM.FALL ---
Addendum entered and electronically signed by Jenn Navarro DO 09/26/17 21:44 : Dr Mars is covering for Dr Chand this weekend, message left with the service and a call back phone number. Original Note: <Sacha Marion - Last Filed: 09/26/17 20:03> Post Fall Progress Note - Post Fall Fall Date: 09/26/17 Fall Time: 07:45 Description of Fall: Patient was transferring herself from the chair to her bed when she decided to walk around her bed. She reports that she then slipped and fell, landing in an upright seated position. She endorses that she hit her head and left shoulder on the wall behind her. She denies dizziness prior to the fall. - Post Fall Exam Vital Sign: Temp Pulse Resp BP Pulse Ox 97.3 F L 60 16 149/74 99 09/26/17 10:00 09/26/17 10:00 09/26/17 10:00 09/26/17 10:00 09/26/17 10:00 Skull Exam: Negative for: Scalp wound, Scalp hematoma, Scalp depression, Ridge in skull Eye Exam: Positive for: Pupils equal, Pupils reactive Ear Exam: Negative for: Discharge, Bleeding Nose Exam: Negative for: Discharge, Bleeding Skin Exam: Positive for: Colour (Left shoulder), Bruising (Left shoulder). Negative for: Lacerations, Grazes Mouth Exam: Negative for: Tongue bitten, Teeth dislodge Neck Exam: Negative for: Tenderness, Tingling, Weakness Spinal Exam: Negative for: Tenderness, Tingling, Weakness Chest Exam: Negative for: Difficulty breathing, Tenderness in collar bones, Tenderness in ribs Abdomen Exam: Negative for: Tenderness Arm Exam: Negative for: Deformity, Alteration in range of movement Leg Exam: Negative for: Deformity, Alteration in range of movement Impression/Plan: 1. Fall in patient with elevated INR -CT Head w/o contrast pending -Left shoulder x-ray pending -Fall precautions -Continue to monitor patient clinically and follow up imaging results -Will notify PMD when imaging results obtained <Eloise Worley - Last Filed: 09/26/17 23:19> Post Fall Progress Note - Post Fall Exam Vital Sign: Temp Pulse Resp BP Pulse Ox 98.2 F 80 14 154/88 H 93 L 09/26/17 20:21 09/26/17 20:21 09/26/17 20:21 09/26/17 20:21 09/26/17 20:21 Attending/Attestation - Attestation I have personally seen and examined this patient.: Yes I have fully participated in the care of the patient.: Yes I have reviewed all pertinent clinical information, including history, physical exam and plan: Yes Notes (Text): 09/26/17 23:18 Patient was seen in [facility]. Agree with notes.
--- NOTE | 2017-09-27 01:30 | PN ---
DATE: SUBJECTIVE: Patient is an 87-year-old, seen and examined, complains of pain in the left forearm where the IV is. Otherwise, offers no complaints. Complains of generalized weakness. PHYSICAL EXAMINATION VITAL SIGNS: She is afebrile, pulse 60, respirations 16, blood pressure 118/66. LUNGS: Bilateral good air flow. Few expiratory scattered rhonchi. HEART: S1 and S2 audible, with soft systolic murmur, and she is status post pacemaker site seems to be healthy looking. ABDOMEN: Soft, nontender. No rebound. No guarding. NEUROLOGICAL: Patient is awake and alert, nonfocal. LABORATORY DATA: Her PT is 57.8, INR 4.87. ASSESSMENT: 1. Chronic atrial fibrillation. 2. Therapeutic INR. 3. Deconditioning and difficulty walking. 4. Community-acquired pneumonia. PLAN: We will continue patient on digoxin, amlodipine, and Risperdal. We will hold her Coumadin. We will follow up her PT/INR in the a.m. Vernon Mars MD
[2017-09-27 07:30] LABS: PROTHROMBIN TIME 91.6 SECONDS (9.4-12.5)
[2017-09-27 07:33] LABS: INR 7.64 (0.93-1.08)
--- NOTE | 2017-09-27 08:58 | RAD ---
PROCEDURE: Radiographs of the Left Shoulder HISTORY: Code Star; Bruising COMPARISON: No prior. FINDINGS: BONES: No acute fracture or destructive bony lesion identified. JOINTS: Gross degenerative changes seen at the acromioclavicular joint where there is almost no residual joint space remaining, with prominent cortical sclerosis evident though limited osteophyte development is identified. Patient unable to position adequately for detailed evaluation of the glenohumeral joint which nevertheless appears at least somewhat degenerated. SOFT TISSUES: Normal. OTHER FINDINGS: Generator and solitary lead for a left pectoral unipolar permanent cardiac pacemaker identified. IMPRESSION: Advanced degenerative joint disease, particularly at the acromioclavicular joint. No definite acute fracture or dislocation identified grossly.
[2017-09-27] MEDS: Digoxin 125 mcg (0.125 mg) Tab PO SCH (14:41)
--- NOTE | 2017-09-27 14:48 | CON ---
DATE: HISTORY OF PRESENT ILLNESS: Patient is an 87-year-old white female who Psychiatry has been following up on Transitional Care Unit due to confusion as well as hallucinations. Dr. Spaulding initially saw patient earlier this week and followed up with patient at which point, her mental status did improve since Dr. Spaulding recommended starting low-dose Risperdal and decreasing Requip. She appeared to be more focused and oriented. I reviewed the recent notes on the unit; however, her improvement is a little inconsistent. She continues to have bouts of hallucinations and delusions, although she has been in very good control. She is confused and staff has noted patient talking to herself. A code star was called because she last night. I met with her at bedside and she is aware that it is 09/2017; however, first indicated that she is at the home of her friend and then she indicates that she is at her house. I remained her twice that she in the hospital; however, she fails to report this one when I asked her about it again after a minutes later. Patient denied any depression. She reports that she is hopeful, constantly reports this even with repeated questions. She readily admits that she has been hallucinating and she seems confused about her current circumstances. She indicates that she sees papers when she tries crop picker her knitting needles; however, the papers disintegrate in right before eyes and nobody sees it. Patient feels that this happened relatively recently. She is calm. She does not appear she is particularly in distress, she is generally pleasant during my interview. She denies any pain at this time and her insight is poor. Her judgment is fair. Labs and vitals were reviewed by this provider. RELEVANT PSYCHIATRIC MEDICATIONS: Include Risperdal 0.25 mg p.o. at bedtime. IMPRESSION: Dementia with associated psychosis, complicated by delirium, rule out hallucinations secondary to medication, specifically Requip. RECOMMENDATIONS: I would not restart Requip. We will continue Risperdal 0.25 mg at bedtime. Patient has been calm and there had been no major behavioral issues on the unit. She is improving, though slowly and a full improvement might take a few weeks if this is secondary to delirium or might be quite minimal as it is secondary to dementia. Regardless, fortunately, she has been in good control and there is no acute indication to change her medication regimen at this time. Dr. Spaulding will hold the patient p.r.n. to further monitor her behavior and associated psychotic symptoms. Mercy Khan MD
--- NOTE | 2017-09-27 19:35 | PN ---
DATE: SUBJECTIVE: Patient is 87 years old, seen and examined, doing well. Yesterday, when noted, patient was trying to get out of bed to move around and sit in the chair; she just slid down; was evaluated by house doctor, no injury noted. PHYSICAL EXAMINATION: GENERAL: Today, she is awake, alert, oriented, and communicative. VITAL SIGNS: She is afebrile, pulse 56, respirations 16, blood pressure 120/69. LUNGS: Bilateral good air flow. No rhonchi or crackles. HEART: S1, S2 audible. ABDOMEN: Soft, nontender. No rebound. No guarding. NEUROLOGIC: She is awake, alert, oriented, able to communicate. CHEST: Her left upper chest, pacemaker site seems to be healthy. LABORATORY DATA: PT is 91.6, INR 7.64. Chemistry: Blood sugar is 106. ASSESSMENT: 1. History of chronic atrial fibrillation. 2. Supratherapeutic INR. 3. Deconditioning and difficulty walking. 4. Resolving community-acquired pneumonia. 5. Dementia. 6. Sick sinus syndrome requiring pacemaker placement. PLAN: We will continue patient on current medication. We will hold her Coumadin. We will give small dose of vitamin K 2.5 mg orally and I will follow up PT/INR in the a.m. Vernon Mars MD
--- NOTE | 2017-09-28 06:09 | PN ---
DATE: 09/27/2017 SUBJECTIVE: The patient is seen lying in bed in the CCU. She is comfortable and offers no complaints. She appears pleasantly confused. She suffered a fall at the bedside yesterday with no apparent self injury. CURRENT MEDICATIONS: Include digoxin 0.125 mg alternating with 0.25 mg daily, Norvasc 5 mg daily, Risperdal and Ultram p.r.n. OBJECTIVE GENERAL: She is a very elderly woman who appears comfortable at rest. VITAL SIGNS: Her blood pressure is 130/70 with pulse of 60, her respiratory rate is 14. She is afebrile. HEENT: No JVD. CHEST: Good bilateral breath sounds. HEART: PMI displaced laterally with an irregular rate and rhythm. ABDOMEN: Soft, nontender. Normoactive bowel sounds. EXTREMITIES: No edema. DIAGNOSTIC DATA: Morning INR is 7.64, Coumadin has been on hold. IMPRESSION 1. Bradycardia tachycardia syndrome, status post permanent pacemaker implant, clinically stable. 2. Chronic atrial fibrillation. 3. Elevated INR with recent fall, oral vitamin K has been administered. 4. Mild confusion, appears stable. RECOMMENDATIONS: Coumadin will be continued to be withheld and repeat INR will be performed in the morning. Precautions to avoid future falls is advisable, especially with an elevated INR. We will continue to follow and make further recommendations as appropriate and arrange for outpatient pacemaker followup as well. Pierre Barbosa MD
--- NOTE | 2017-09-28 06:34 | PN ---
DATE: 09/28/2017 SUBJECTIVE: The patient has no complaints of any chest pain, any shortness of breath. No headaches. PHYSICAL EXAMINATION VITAL SIGNS: Temperature is 98.1, pulse of 58, blood pressure 133/76, respirations 14. GENERAL: The patient is lying in bed, flat, comfortable. HEENT: No oral lesion. Anicteric sclerae. Moist mucosa. NECK: No JVD, adenopathy, or thyromegaly. CARDIOVASCULAR: S1 and S2, regular. No murmurs, rubs, or gallops. LUNGS: Clear to auscultation bilaterally. No wheeze, rales, or rhonchi. ABDOMEN: Bowel sounds are positive, soft, nontender and nondistended. EXTREMITIES: No cyanosis, clubbing or edema. LABORATORY DATA: CT done shows no intracranial hemorrhage, nonspecific white matter changes. ASSESSMENT: 1. Delirium. 2. Bradycardia, status post pacemaker placement. 3. Hypertension. 4. Congestive heart failure secondary to systolic dysfunction. 5. Dementia. 6. Community-acquired pneumonia, resolved. 7. Atrial fibrillation, on Coumadin, on hold secondary to elevated INR. PLAN: The patient has atrial fibrillation. The patient's INR was elevated. The patient is on Norvasc for hypertension. She is on digoxin. She is going to continue with risperidone and was started because of her delirium. She was given vitamin K because of an elevated INR. She is going to get repeat INR testing done. She does have delirium with hallucinations. Jasson Chand MD
--- NOTE | 2017-09-28 08:13 | CP.PCM.PN ---
Subjective - Date & Time of Evaluation Date of Evaluation: 09/28/17 Time of Evaluation: 07:00 - Subjective Subjective: Stable in TCU, s/p EP eval/PPM at [facility] 09/22/17. Still confused, agitated last night > sedated.. No CP or SOB. V/S noted. P 56 - 58 PE: Lungs: clear Cor.: S1S2 Abd: soft Ext.: no edema Neuro.: sedated I/O = 500/575 recorded Labs 09/27 noted. INR 7.64 ECG 09/24 noted. Objective - Vital Signs/Intake and Output Vital Signs (last 24 hours): Temp Pulse Resp BP Pulse Ox 98.1 F 58 L 14 133/76 100 09/27/17 16:00 09/27/17 16:00 09/27/17 16:00 09/27/17 16:00 09/27/17 16:00 - Medications Medications: Current Medications Acetaminophen (Tylenol 325mg Tab) 650 mg PO Q6H PRN; Protocol PRN Reason: mild pain Amlodipine Besylate (Norvasc) 5 mg PO DAILY PAUL PRN Reason: Protocol Last Admin: 09/27/17 09:11 Dose: 5 mg Digoxin (Lanoxin) 0.25 mg PO Q48H PAUL PRN Reason: Protocol Last Admin: 09/26/17 13:52 Dose: 0.25 mg Digoxin (Digoxin) 0.125 mg PO Q48H PAUL PRN Reason: Protocol Last Admin: 09/27/17 14:41 Dose: 0.125 mg Risperidone (Risperdal Tab) 0.25 mg PO HS [facility] Last Admin: 09/28/17 01:46 Dose: 0.25 mg Tramadol HCl (Ultram) 50 mg PO Q6H PRN; Protocol PRN Reason: severe pain Last Admin: 09/27/17 14:40 Dose: 50 mg - Labs Labs: PT 91.6 SECONDS (9.4-12.5) H 09/27/17 06:30 INR 7.64 (0.93-1.08) H* 09/27/17 06:30 APTT 95.8 Seconds (25.1-36.5) H 09/25/17 06:30 Assessment and Plan - Assessment and Plan (Free Text) Assessment: Acute and chronic dizziness, falls at home Chronic AF with slow rate, s/p PPM 09/22/17 Pneumonia/Pleural effusions Confusion/Delerium HBP H/O Breast cancer S/P Hysterectomy Echo: Mild AI and MR, Mod. TR and mod/sev PH. Coagulopathy Plan: Hold warfarin. Await INR today. Daily INR's Check BP and Dig. level in AM OOB/PT as aga. As per Psych, Dr. Mannie Calderón F/U to be arranged.
[2017-09-28 09:18] LABS: INR 2.51 (0.93-1.08); PROTHROMBIN TIME 29.4 SECONDS (9.4-12.5)
--- NOTE | 2017-09-28 09:36 | PN ---
DATE: 09/28/2017 PULMONARY NOTE SUBJECTIVE: The patient is mildly sedated at the present time. She is arousable. She is not short of breath at rest. PHYSICAL EXAMINATION: VITAL SIGNS: (Last noted in the computer): Temperature is 98.1, pulse 58, respirations 14, blood pressure 133/76. Oxygen saturation on nasal cannula is 100%. HEENT: Normocephalic, atraumatic. No JVD. CARDIOVASCULAR: Systolic ejection murmur at the lower left sternal border. No S3 gallop. LUNGS: Minimal crackles noted at the right base. Otherwise clear. EXTREMITIES: Mild edema. No cyanosis. No clubbing. Calves are nontender to palpation. GI: Abdomen is soft, nontender and nondistended. Bowel sounds are positive. SKIN: No acute rash. NEUROLOGIC: Limited at the present time. IMPRESSION: 1. Right lower lobe pneumonia. 2. Small right pleural effusion. 3. Cardiac arrhythmias. Status post pacemaker insertion. 4. Vertigo. 5. Confusion. PLAN: The patient appears comfortable this morning. She is not short of breath at rest. She is mildly sedated, but easily arousable. I did discuss the case with the night nurse at length. The night nurse confirms that the patient has been confused during her shift. I would continue with the psychiatric evaluation - input is noted. I would also like to call back Neurology to see if there is anything else they can add. On physical exam, there is no significant bronchospasm noted. In addition, the oxygen saturation on nasal cannula is now 100%. I will continue with the aspiration precautions for now. The patient remains off antibiotic therapy. There are no temperatures noted. The clinical status of the patient is improved overall. However, she does remain guarded. I did discuss the case with the daughter at length this morning. I will also discuss the case with Dr. Chand. Robert Barraza MD TESS
[2017-09-28] MEDS: Digoxin 250 mcg (0.25 mg) Tab PO SCH (13:57)
[2017-09-29 07:06] LABS: BLOOD UREA NITROGEN 19 mg/dL (7-21); CALCIUM 9.1 mg/dL (8.4-10.5); GFR AFRICAN-AMERICAN > 60; GFR NON-AFRICAN AMERICAN > 60
[2017-09-29 07:16] LABS: INR 2.46 (0.93-1.08); PROTHROMBIN TIME 28.8 SECONDS (9.4-12.5)
--- NOTE | 2017-09-29 07:55 | CP.PCM.PN ---
Subjective - Date & Time of Evaluation Date of Evaluation: 09/29/17 Time of Evaluation: 07:00 - Subjective Subjective: Stable in TCU, s/p EP eval/PPM at [facility] 09/22/17. Better MS yesterday. No CP or SOB. V/S noted. P 60 - 61 PE: Lungs: clear Cor.: S1S2 Abd: soft Ext.: no edema Neuro.: sedated Labs noted. INR=2.46, Dig. = 1.1, BMP OK ECG 09/24 noted. Objective - Vital Signs/Intake and Output Vital Signs (last 24 hours): Temp Pulse Resp BP Pulse Ox 97.6 F 60 20 123/66 93 L 09/28/17 16:00 09/28/17 16:00 09/28/17 16:00 09/28/17 16:00 09/28/17 16:00 - Medications Medications: Current Medications Acetaminophen (Tylenol 325mg Tab) 650 mg PO Q6H PRN; Protocol PRN Reason: mild pain Amlodipine Besylate (Norvasc) 5 mg PO DAILY PAUL PRN Reason: Protocol Last Admin: 09/28/17 10:16 Dose: 5 mg Digoxin (Lanoxin) 0.25 mg PO Q48H PAUL PRN Reason: Protocol Last Admin: 09/28/17 13:57 Dose: 0.25 mg Digoxin (Digoxin) 0.125 mg PO Q48H PAUL PRN Reason: Protocol Last Admin: 09/27/17 14:41 Dose: 0.125 mg Donepezil HCl (Aricept) 5 mg PO HS [facility] Last Admin: 09/28/17 22:12 Dose: 5 mg Risperidone (Risperdal Tab) 0.25 mg PO HS [facility] Last Admin: 09/29/17 00:57 Dose: Not Given Tramadol HCl (Ultram) 50 mg PO Q6H PRN; Protocol PRN Reason: severe pain Last Admin: 09/27/17 14:40 Dose: 50 mg - Labs Labs: 09/29/17 06:30 PT 28.8 SECONDS (9.4-12.5) H 09/29/17 06:30 INR 2.46 (0.93-1.08) H 09/29/17 06:30 APTT 95.8 Seconds (25.1-36.5) H 09/25/17 06:30 Assessment and Plan - Assessment and Plan (Free Text) Assessment: Acute and chronic dizziness, falls at home Chronic AF with slow rate, s/p PPM 09/22/17 Pneumonia/Pleural effusions Confusion/Delerium HBP H/O Breast cancer S/P Hysterectomy Echo: Mild AI and MR, Mod. TR and mod/sev PH. Coagulopathy Plan: OOB/PT as aga. No warf today. Check INR in AM As per Psych, Dr. Chand Pacer F/U to be arranged. D/C planning.
--- NOTE | 2017-09-29 10:26 | PN ---
DATE: 09/29/2017 PULMONARY NOTE SUBJECTIVE: The patient appears comfortable this morning. She is not short of breath. She is less confused. PHYSICAL EXAMINATION: VITAL SIGNS: (Last noted in the computer): Temperature is 97.6, pulse 60, respirations 18/20, blood pressure 123/66. Oxygen saturation on room air is 93-98%. HEENT: Normocephalic, atraumatic. No JVD. CARDIOVASCULAR: Systolic ejection murmur at the lower left sternal border. No S3 gallop. LUNGS: Minimal crackles noted at the right base. Otherwise clear. EXTREMITIES: Mild edema. No cyanosis, no clubbing. Calves are nontender to palpation. GI: Abdomen is soft, nontender and nondistended. Bowel sounds are positive. SKIN: No acute rash. NEUROLOGIC: Limited at the present time. IMPRESSION: 1. Right lower lobe pneumonia. 2. Small right pleural effusion. 3. Cardiac arrhythmias. Status post pacemaker insertion. 4. Vertigo. 5. Confusion. PLAN: The patient appears comfortable this morning. She is not short of breath at rest. She appears much less confused. I did discuss the case with the night nurse at length. The night nurse confirms that the patient has been less confused during her shift. I would continue with the neurologic and psychiatric evaluations. Clinical status of the patient appears significantly improved this morning. I will continue with the aspiration precautions and would like to see the patient out of bed as much as possible. I did discuss these instructions with the nurse. I will also discuss the above with Dr. Chand. Robert Barraza MD MTDD
[2017-09-29 11:16] VITALS: RESP 18
[2017-09-29] MEDS: Digoxin 125 mcg (0.125 mg) Tab PO SCH (14:38)
[2017-09-29 17:06] VITALS: TEMP 97.3
--- NOTE | 2017-09-29 23:16 | PCM.PYCHPN ---
Psychiatric Progress Note - Psychiatric Progress Note Patient seen today, length of contact: 25 Patient Chief Complaint: Patient reportedly having auditory hallucinations and some confusion. Had been admitted with a history of falls, atrial fibrillation and dizzy spells. Problems Identified/Issues Discussed: Patient had been having gross psychotic ideation yesterday the day before. Presently indicates she had seen clothing and people at her window so earlier this morning but not presently. Review with nursing indicates patient has improved significantly since yesterday 's intervention of decreasing Requip and starting low-dose respiradol The patient will seem also seems to be more focused and oriented Medical Problems: Status post pneumonia, bradycardia, hypertension, congestive heart failure due to systolic defect, recent pneumonia, Diagnostic Results: Laboratory Results - last 24 hr 09/24/17 09/25/17 09/25/17 19:15 01:45 06:30 PT 19.8 H 24.2 H INR 1.70 H 2.07 H APTT 76.7 H 75.6 H 95.8 H DSM 5 Symptoms Update: Patient appears calmer today. Is aware she is in the hospital, thinking it is in [place]. Is presently oriented to time. He is not psychotic. Had opportunity to discuss case with her cousin who had been visiting with her. Cousin informs me that patient was confused for several weeks prior to hospitalization. This is a somewhat different perspective then presented by her daughter who indicated that the patient was normative baseline prior to hospitalization.. 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 We'll continue to monitor patient off of Requip and on low-dose respiratory goal. Nursing indicates patient is pleasant today; something that is not always the case. Medication Change: No Medical Record Reviewed: Yes Mental Status Examination - Cognitive Function Orientation: Person, Situation, Time Memory: Impaired Attention: WNL Concentration: WNL Association: WNL - Mood Mood: Neutral - Affect Affect: Constricted - Formal Thought Process Formal Thought Process: Hallucinations, Delusions - Suicidal Ideation Suicidal Ideation: No - Homicidal Ideation Homicidal Ideation: No Goal/Treatment Plan - Goal/Treatment Plan Progress Toward Problem(s) and Goals/Treatment Plan: Have stopped Requip for now. If recent initiationthis might be contributory if not causative of her psychotic ideation we'll have to monitor for restless leg syndrome will at same time start low dose Risperdal in an attempt to paly 8/ alleviate psychotic ideation. Discussion with nursing indicates patient is much improved. This is my clinical assessment as well. Will discuss case with daughter. On September 28 reviewed case with the visiting disease. Niece of impression that patient had becoming confused prior to her hospitalization by at least several weeks.
--- NOTE | 2017-09-30 04:54 | PN ---
DATE: SUBJECTIVE: The patient is an 87-year-old white female who has been exhibiting some confusion and predominantly visual hallucinations that are reportedly of new onset. I have discussed the patient's situation with her daughter. The patient is presently with a one-on-one sitter as she has become agitated . Given these behavioral observations and concerns, I have increased the patient's Risperdal from 0.25 mg at bedtime to 0.25 mg a.m. and at bedtime. She does not appear to be exhibiting a restless leg and is off of all Requip, which was considered to be a potential contributory factor leading to her reported sudden onset psychosis. Her state of confusion or cognitive impairment, however, may be of several weeks duration according to a niece that I had discussed her case with, which also raises the possibility of the emergence of a dementiform disorder. As such, I have also started the patient on Aricept. The patient is also on digoxin, Lanoxin, Norvasc. Blood pressure 123/66, pulse 60, temperature 97.6, respiratory rate 20. I have reviewed Dr. Barraza's note for earlier this day with the monitoring her right lower lobe pneumonia, small right pleural effusion, cardiac arrhythmia/status post pacemaker insertion, vertigo and confusion. I have also reviewed Dr. Smith's note who notes that she has both acute and chronic dizziness, history of hypertension, history of breast cancer, status post hysterectomy, with an echocardiogram show mild AI and MR, moderate TR and moderate/severe PH along with a coagulopathy. Marc Spaulding MD/ PhD
[2017-09-30 07:06] LABS: INR 2.38 (0.93-1.08); PROTHROMBIN TIME 27.8 SECONDS (9.4-12.5)
--- NOTE | 2017-09-30 09:18 | PN ---
DATE: 09/30/2017 PULMONARY NOTE SUBJECTIVE: The patient appears comfortable this morning. She is not short of breath at rest. She is much less confused. PHYSICAL EXAMINATION: VITAL SIGNS: (last noted in the computer): Temperature is 97.3, pulse 61, respirations 18, blood pressure 126/67. Oxygen saturation on room air is 92-96%. HEENT: Normocephalic, atraumatic. No JVD. CARDIOVASCULAR: Systolic ejection murmur at the lower left sternal border. No S3 gallop. LUNGS: Minimal crackles noted at the right base. Otherwise clear. EXTREMITIES: Mild edema. No cyanosis. No clubbing. Calves are nontender to palpation. GI: Abdomen is soft, nontender and nondistended. Bowel sounds are positive. SKIN: No acute rash. NEUROLOGIC: Limited at the present time. IMPRESSION: 1. Right lower lobe pneumonia. 2. Small right pleural effusion. 3. Cardiac arrhythmias. Status post permanent pacemaker. 4. Vertigo. 5. Confusion--resolving. PLAN: The patient appears very comfortable this morning. She is not short of breath at rest. She is awake and alert. She is much less confused. I did discuss the case with the night sitter at length. The night sitter confirms that the patient has been much less confused. I would continue with the psychiatric evaluation. Input is appreciated. Clinical status of the patient is significantly improved overall. I will discuss the above with the attending physician. Robert Barraza MD MTDD
[2017-09-30 11:22] VITALS: BP 122/73; PULSE 63; O2SAT 96
[2017-09-30] MEDS: Digoxin 250 mcg (0.25 mg) Tab PO SCH (14:03)
[2017-09-30 14:06] VITALS: PULSE 63
--- NOTE | 2017-09-30 15:35 | PN ---
DATE: 09/30/2017 SUBJECTIVE: The patient is seen, sitting in a chair in the Transitional Care Unit. She remains confused. Plans to discharge home hopefully later today. MEDICATIONS: Medications remain Aricept, Coumadin 3 mg daily, digoxin 0.125 mg alternating with 0.25 mg, Norvasc 5 mg daily, Risperdal, tramadol p.r.n. OBJECTIVE: GENERAL: She is a very elderly woman. She appears somewhat restless and confused. VITAL SIGNS: Blood pressure 136/66 with a pulse of 82, respirations of 14. She is afebrile. HEENT: No JVD. CHEST: Clear to auscultation and percussion. Pacemaker site clean and dry. HEART: PMI displaced laterally with systolic murmur in the left sternal border. ABDOMEN: Soft, nontender, normoactive bowel sounds. EXTREMITIES: No edema. DIAGNOSTIC DATA: INR is 2.38. IMPRESSION: 1. Bradycardia-tachycardia syndrome. Clinically stable. Status post permanent pacemaker implant. 2. Chronic atrial fibrillation. 3. Confusion likely due to hospital-induced delirium. RECOMMENDATIONS: Current medications should be continued. She is stable from cardiac standpoint for discharge home. Outpatient followup will be arranged as needed. Pierre Barbosa MD
--- NOTE | 2017-09-30 17:49 | PCM.PYCHPN ---
Psychiatric Progress Note - Psychiatric Progress Note Patient seen today, length of contact: 25 Patient Chief Complaint: Patient reportedly having auditory hallucinations and some confusion. Had been admitted with a history of falls, atrial fibrillation and dizzy spells. Problems Identified/Issues Discussed: Patient had been having gross psychotic ideation yesterday the day before. Presently indicates she had seen clothing and people at her window so earlier this morning but not presently. Review with nursing indicates patient has improved significantly since yesterday 's intervention of decreasing Requip and starting low-dose respiradol The patient will seem also seems to be more focused and oriented Medical Problems: Status post pneumonia, bradycardia, hypertension, congestive heart failure due to systolic defect, recent pneumonia, Diagnostic Results: Laboratory Results - last 24 hr 09/24/17 09/25/17 09/25/17 19:15 01:45 06:30 PT 19.8 H 24.2 H INR 1.70 H 2.07 H APTT 76.7 H 75.6 H 95.8 H DSM 5 Symptoms Update: Met with son and daughter at the bedside as patient prepares to go to [place]. Present patient is alert and oriented. Seems appropriate in interaction with no overt signs of psychosis or confusion. Nursing however does note periods of confusion. It is uncertain at this juncture if this was a hospital-based transient delirium or a manifestation of a more insidious demented for progression. Medication Change: No Medical Record Reviewed: Yes Mental Status Examination - Cognitive Function Orientation: Person, Place, Situation, Time Memory: Intact, Impaired Attention: WNL Concentration: WNL Association: WNL Decription of patient's judgement and insights: Impaired - Mood Mood: Neutral - Affect Affect: Constricted - Formal Thought Process Formal Thought Process: Other - Suicidal Ideation Suicidal Ideation: No - Homicidal Ideation Homicidal Ideation: No Goal/Treatment Plan - Goal/Treatment Plan Progress Toward Problem(s) and Goals/Treatment Plan: Have stopped Requip for now. If recent initiationthis might be contributory if not causative of her psychotic ideation we'll have to monitor for restless leg syndrome will at same time start low dose Risperdal in an attempt to paly 8/ alleviate psychotic ideation. Discussion with nursing indicates patient is much improved. This is my clinical assessment as well. Will discuss case with daughter. On September 28 reviewed case with the visiting disease. Niece of impression that patient had becoming confused prior to her hospitalization by at least several weeks. On September 30 patient leaving to go to a rehabilitation facility in [facility]
--- NOTE | 2017-10-01 04:04 | DS ---
HISTORY OF PRESENT ILLNESS: The patient has no complaints of any chest pain, no shortness of breath. She feels well. Her breathing has improved. She had a pacemaker that was placed after she had gone to [facility]. She is going for subacute rehab today. PHYSICAL EXAMINATION: VITAL SIGNS: Temperature is 97.3, pulse of 61, blood pressure is 126/67, respirations 18, O2 saturation 92%. GENERAL: The patient is lying in bed, flat, comfortable. HEENT: No oral lesion. Anicteric sclerae. Moist mucosa. NECK: No JVD, adenopathy, or thyromegaly. CARDIOVASCULAR: S1 and S2, regular. No murmurs, rubs, or gallops. LUNGS: Clear to auscultation bilaterally. No wheeze, rales, or rhonchi. ABDOMEN: Bowel sounds are positive, soft, nontender and nondistended. EXTREMITIES: No cyanosis, clubbing, or edema. ASSESSMENT: 1. Delirium. 2. Bradycardia, status post pacemaker placement. 3. Hypertension. 4. Congestive heart failure secondary to systolic dysfunction. 5. Dementia. 6. Community-acquired pneumonia, resolved. 7. Atrial fibrillation, on Coumadin. PLAN: The patient's INR is therapeutic at 2.38. The patient is on digoxin. We are going to continue with this. She is on Norvasc for hypertension. She is receiving Risperdal. We will need to restart the patient on her Coumadin. CONDITION: Stable. ACTIVITIES: Increase as tolerated. The patient to be discharged to subacute rehab facility. Follow up with primary care doctor in 1 to 2 weeks after discharge from subacute. Jasson Chand MD
== END 2017-09-30 16:58 | DRG 308 ==
LOC: TRCU 19:38
PROVIDERS: ADMIT Internal Medicine Nephrology; ATTEND Internal Medicine Nephrology
PROC: F07Z9FZ Gait Training/Functional Ambulation Treatment using Assistive, Adaptive, Supportive or Protective Equipment (ICD-10-PCS; principal; 2017-09-23)
PROC: F08Z4FZ Home Management Treatment using Assistive, Adaptive, Supportive or Protective Equipment (ICD-10-PCS; 2017-09-23)
DX: I49.5 Sick sinus syndrome (principal); Z95.0 Presence of cardiac pacemaker; J18.9 Pneumonia, unspecified organism; R26.2 Difficulty in walking, not elsewhere classified; I50.22 Chronic systolic (congestive) heart failure; Z66 Do not resuscitate; I48.2 Chronic atrial fibrillation; I11.0 Hypertensive heart disease with heart failure; F03.90 Unspecified dementia, unspecified severity, without behavioral disturbance, psychotic disturbance, mood disturbance, and anxiety; R42 Dizziness and giddiness; Z91.81 History of falling; Z79.01 Long term (current) use of anticoagulants; Z85.3 Personal history of malignant neoplasm of breast; Z90.710 Acquired absence of both cervix and uterus

== ENCOUNTER 2017-10-24 20:47 | Inpatient (IN) | payer MEDICARE ==
[2017-10-24 20:58] VITALS: BMI 28.8
[2017-10-24] MEDS ORDERED: Sodium Chloride 0.9% 1,000 ML IV SCH (22:00)
[2017-10-24 22:06] LABS: HEMOGLOBIN 12.1 g/dL (12.0-16.0); MEAN CELL VOLUME 93.5 fl (80.0-105.0); MEAN CORPUSCULAR HEMOGLOBIN 31.3 pg (25.0-35.0); MEAN CORPUSCULAR HGB CONC 33.4 g/dl (31.0-37.0); MEAN PLATELET VOLUME 12.5 fl (7.0-11.0); RBC 3.87 10^6/uL (3.5-6.1); WHITE BLOOD COUNT 6.4 10^3/ul (4.5-11.0)
[2017-10-24 22:12] LABS: VENOUS BLOOD GAS PO2 158 mm/Hg (30-55); VENOUS BLOOD PH 7.43 (7.32-7.43)
[2017-10-24 22:19] LABS: PROTHROMBIN TIME 55.6 SECONDS (9.4-12.5)
[2017-10-24 22:20] LABS: PARTIAL THROMBOPLASTIN TIME 78.3 Seconds (25.1-36.5)
--- NOTE | 2017-10-24 22:20 | ED PDOC ---
Arrival/HPI - General Chief Complaint: GI Problem Time Seen by Provider: 10/24/17 20:59 Historian: Patient - Critical Care Critical Care Minutes: 30 minutes - History of Present Illness Narrative History of Present Illness (Text): 10/24/17 21:17 87 year old female, whose past medical history includes A-fib, pneumonia, recent cardiac pacemaker placement for bradycardia, and rehab for deconditioning , presents to the emergency department complaining decreased appetite for the past couple days associated with some apparent dysphagia. Patient apparently had been switch to ensure with liquid diet and soft diet. Patient apparently has difficulty to transit time when swallowing. Patient denies any fever, chills , chest pain, shortness of breath, nausea, vomiting, diarrhea, urinary symptoms , back pain, neck pain, headache, dizziness, or any other complaints. PMD: Dr. Levi Time/Duration: Other (2-3 days) Symptom Onset: Gradual Symptom Course: Unchanged Activities at Onset: Light Context: Home Past Medical History - Provider Review Nursing Documentation Reviewed: Yes - Infectious Disease Hx of Infectious Diseases: None - Tetanus Immunization Tetanus Immunization: Unknown - Cardiac Hx Atrial Fibrillation: Yes Hx Hypertension: Yes Other/Comment: L sided pacemaker - Pulmonary Hx Respiratory Disorders: Yes Hx Pneumonia: Yes - Neurological Hx Dizziness: Yes (vertigo) - HEENT Hx HEENT Disorder: Yes (R eye retinal bleeding. c/o blurry vision) - Renal Other/Comment: uti's - Endocrine/Metabolic Hx Hypothyroidism: Yes - Hematological/Oncological Hx Cancer: Yes (r lumpectomy/nose) - Integumentary Hx Basal Cell Carcinoma: Yes - Musculoskeletal/Rheumatological Hx Arthritis: Yes (knees) - Gastrointestinal Hx Gastrointestinal Disorders: (cholecystectomy) - Genitourinary/Gynecological Hx Reproductive Disorders: Yes (hx breast ca) - Psychiatric Hx Psychophysiologic Disorder: No Hx Substance Use: No - Past Surgical History Past Surgical History: No Previous - Surgical History Hx Hysterectomy: Yes Hx Mastectomy: No (R Breast Lumpectomy) Hx Orthopedic Surgery: Yes Other/Comment: r ovarian cyst. L pacemaker - Anesthesia Hx Anesthesia: Yes Hx Anesthesia Reactions: No - Suicidal Assessment Feels Threatened In Home Enviroment: No Family/Social History - Physician Review Nursing Documentation Reviewed: Yes Family/Social History: No Known Family HX Smoking Status: Never Smoked Hx Alcohol Use: No Hx Substance Use: No Hx Substance Use Treatment: No Allergies/Home Meds Allergies/Adverse Reactions: Allergies sulfamethoxazole [From Bactrim] Allergy (Verified 09/22/17 19:59) RASH trimethoprim [From Bactrim] Allergy (Verified 09/22/17 19:59) RASH Home Medications: Home Meds Medication Instructions Recorded Confirmed Warfarin Sodium [Coumadin] 2 mg PO DAILY 06/10/14 10/24/17 Digoxin 0.25 mg PO QOTHERDAY 10/13/14 10/24/17 Acetaminophen [Tylenol 325mg tab] 2 tab PO Q4H PRN 10/24/17 10/24/17 Acidoph/L.bulg/Bif.b/S.thermop 1 tab PO DAILY 10/24/17 10/24/17 [Maryann-Bid Caplet] Cholecalciferol [Vitamin D 1000 IU] 2,000 unit PO DAILY 10/24/17 10/24/17 Digoxin [Digitek] 1 tab PO QOTHERDAY 10/24/17 10/24/17 Furosemide [Lasix] 1 tab PO DAILY 10/24/17 10/24/17 Sennosides/Docusate Sodium [Stool 1 tab PO BID 10/24/17 10/24/17 Softener-Laxative Tablet] Review of Systems - Physician Review All systems were reviewed & negative as marked: Yes - Review of Systems Constitutional: absent: Fevers, Other (Chills) ENT: Other (Dysphagia) Respiratory: absent: SOB Cardiovascular: absent: Chest Pain Gastrointestinal: Appetite Changes (decreased appetite). absent: Diarrhea, Nausea, Vomiting Genitourinary Female: absent: Dysuria, Frequency, Hematuria Musculoskeletal: absent: Back Pain, Neck Pain Neurological: absent: Headache, Dizziness Physical Exam Vital Signs Reviewed: Yes Vital Signs Temp Pulse Resp BP Pulse Ox 10/25/17 04:00 60 18 118/61 99 10/25/17 02:31 96.8 F L 60 18 114/60 100 10/25/17 00:50 95.1 F L 60 16 100/71 100 10/24/17 23:49 93.3 F L 60 18 117/68 91 L 10/24/17 21:32 91.1 F L 10/24/17 21:12 60 18 138/72 95 Temperature: Hypothermic Blood Pressure: Normal Pulse: Regular Respiratory Rate: Normal Appearance: Positive for: Well-Appearing, Non-Toxic, Comfortable Pain Distress: None Mental Status: Positive for: Alert and Oriented X 3 Finger Stick Blood Glucose: 94 - Systems Exam Head: Present: Atraumatic, Normocephalic Pupils: Present: PERRL Extroacular Muscles: Present: EOMI Conjunctiva: Present: Normal Mouth: Present: Moist Mucous Membranes Pharnyx: Present: Normal (Posterior Pharnyx clear with no swelling). No: Strider Neck: Present: Normal Range of Motion Respiratory/Chest: Present: Clear to Auscultation, Good Air Exchange. No: Respiratory Distress, Accessory Muscle Use Cardiovascular: Present: Irregular Rhythm (Irregularly Irregular). No: Murmurs Abdomen: No: Tenderness, Distention, Peritoneal Signs Back: Present: Normal Inspection Upper Extremity: Present: Normal Inspection. No: Cyanosis, Edema Lower Extremity: Present: Normal Inspection. No: Edema, Cyanosis Neurological: Present: GCS=15, CN II-XII Intact, Speech Normal. No: Other (No focal or neurological deificts) Skin: Present: Warm, Dry, Normal Color. No: Rashes Psychiatric: Present: Alert, Oriented x 3, Normal Insight, Normal Concentration Medical Decision Making ED Course and Treatment: 10/24/17 212:24 Impression: 87 year old female presents complaining of decreased appetite for the past couple of days associated with some apparent dysphagia. Plan: -- VBG -- CT Heat w/o Contrast -- CT Neck Soft Tissue w/o contrast -- EKG -- Labs -- Chest X-ray -- Blood Culture, Urine Culture -- Urinalysis -- Reassess and disposition Prior Visits: Notes and results from previous visits were reviewed. Patient was last seen in the emergency department on 09/14/17 presents complaining of dizziness. Patient was admitted. Progress Notes: EXAM: CT Head Without Intravenous Contrast Dictated and Authenticated by: Vinnie Linda MD 10/25/2017 12:25 AM IMPRESSION: 1. Nonspecific white matter changes. Acute infarction may be CT occult within first 24 hours. If a focal deficit persists, consider followup CT or MRI for further evaluation. 2. Incidental/non-acute findings are described above. EXAM: CT Neck Without Intravenous Contras Dictated and Authenticated by: Vinnie Linda MD 10/25/2017 1:01 AM IMPRESSION: 1. Groundglass/airspace opacities, nonspecific. DDX: Pneumonia, pulmonary edema , interstitial lung disease, pneumonitis. Clinical correlation and follow up are recommended. 2. Heterogeneous thyroid. Followup as clinically warranted. 3. Incidental/non-acute findings are described above CXR Impression: As read by me, left and right lung opacities. 10/25/17 01:[address]. Astudillo covering Dr. Chand who is aware and agrees with the plan. Accepts into Dr. Chand's service. Request consult of Dr. Niño and Dr. Robert. Also request's Dr. Eduardo consult to see if Patient is an ICU candidate. 10/25/17 02:05 Patient was seen by Dr. Eduardo Tree Inspector who states patient is not an ICU candidate and may go to a Telemetry bed. 10/25/17 04:44 EKG shows 100% pacemaker rhythm. Interpreted by me. - Lab Interpretations Lab Results: 10/24/17 21:45 10/24/17 23:00 Lab Results 10/24/17 23:00: Sodium 139, Chloride 99, Potassium 3.9, Carbon Dioxide 34 H, Anion Gap 9 L, BUN 28 H, Creatinine 0.6 L, Est GFR ( Amer) > 60, Est GFR (Non-Af Amer) > 60, Random Glucose 78, Calcium 9.1, Total Bilirubin 0.9, AST 176 H D, ALT 243 H, Alkaline Phosphatase 291 H D, Lactate Dehydrogenase 492, Total Creatine Kinase 28 L, Troponin I 0.02 D, Total Protein 6.2, Albumin 3.1, Globulin 3.1, Albumin/Globulin Ratio 1.0 L 10/24/17 22:58: Urine Color Yellow, Urine Appearance Clear, Urine pH 5.5, Ur Specific [place] 1.025, Urine Protein Negative, Urine Glucose (UA) Negative, Urine Ketones Trace H, Urine Blood Negative, Urine Nitrate Negative, Urine Bilirubin Negative, Urine Urobilinogen 0.2, Ur Leukocyte Esterase Negative 10/24/17 21:45: pO2 158 H, VBG pH 7.43, VBG pCO2 51.0, VBG HCO3 33.9 H, VBG Total CO2 35.5 H, VBG O2 Sat (Calc) 99.4 H, VBG Base Excess 8.0 H, VBG Potassium 5.1, Sodium 139.0, Chloride 103.0, Glucose 79, Lactate 1.8, FiO2 21.0 , Venous Blood Potassium 5.1 10/24/17 21:45: PT 55.6 H, INR 4.73 H*, APTT 78.3 H 10/24/17 21:45: WBC 6.4, RBC 3.87, Hgb 12.1, Hct 36.2, MCV 93.5, MCH 31.3, MCHC 33.4, RDW 15.0 H, Plt Count 78 L, MPV 12.5 H I have reviewed the lab results: Yes - RAD Interpretation Radiology Orders: 10/24/17 21:24 HEAD W/O CONTRAST [CT] Stat 10/24/17 21:25 NECK SOFT TISSUE W/O CONTRAST [CT] Stat 10/24/17 21:51 CHEST PORTABLE [RAD] Stat - EKG Interpretation Interpreted by ED Physician: Yes Type: 12 lead EKG - Medication Orders Current Medication Orders: Acetaminophen (Tylenol 650 Mg Supp) 650 mg RC Q6H PRN PRN Reason: Fever >100.4 F Digoxin (Lanoxin) 0.1 mg IVP QOTHERDAY [facility] Last Admin: 10/25/17 12:37 Dose: 0.1 mg MAR Apical Pulse Rate Document 10/25/17 12:37 JUSTYNA (Rec: 10/25/17 12:40 JUSTYNA [id number]) Apical Pulse Rate Apical Pulse Rate (60-90 beats/min) 60 IVP Administration Document 10/25/17 12:37 JUSTYNA (Rec: 10/25/17 12:40 JUSTYNA [id number]) Charges for Administration # of IVP Administrations 1 Sodium Chloride (Sodium Chloride 0.9%) 1,000 mls @ 75 mls/hr IV .[id number] [facility] Last Admin: 10/25/17 12:33 Dose: 75 mls/hr eMAR Start Stop Document 10/25/17 12:33 JUSTYNA (Rec: 10/25/17 12:33 JUSTYNA [id number]) Intravenous Solution Start Date 10/26/17 Start Time 12:33 Meropenem (Merrem Iv 1 Gm Premix) 50 mls @ 100 mls/hr IVPB Q8 PAUL PRN Reason: Protocol Stop: 11/03/17 22:01 Vancomycin HCl (Vancomycin 750 Mg In Ns) 750 mg in 250 mls @ 167 mls/hr IVPB Q12H PAUL PRN Reason: Protocol Stop: 11/03/17 16:31 Last Admin: 10/25/17 18:10 Dose: 167 mls/hr eMAR Start Stop Document 10/25/17 18:10 JUSTYNA (Rec: 10/25/17 18:15 JUSTYNA [id number]) Intravenous Solution Start Date 10/25/17 Start Time 18:10 End Date 10/25/17 End time 19:40 Total Infusion Time 90 Discontinued Medications Sodium Chloride (Sodium Chloride 0.9%) 1,000 mls @ 100 mls/hr IV .Q10H PAUL Last Admin: 10/24/17 22:20 Dose: 100 mls/hr eMAR Start Stop Document 10/24/17 22:20 JOL (Rec: 10/25/17 00:57 JOL [id number]) Intravenous Solution Start Date 10/24/17 Start Time 22:20 Piperacillin Sod/Tazobactam Sod (Zosyn 3.375 In Ns 100ml) 100 mls @ 200 mls/hr IV STAT STA PRN Reason: Protocol Stop: 10/25/17 01:29 Last Admin: 10/25/17 01:43 Dose: 200 mls/hr eMAR Start Stop Document 10/25/17 01:43 JOL (Rec: 10/25/17 01:43 JOL [id number]) Intravenous Solution Start Date 10/25/17 Start Time 01:43 End Date 10/25/17 End time 02:13 Total Infusion Time 30 Vancomycin HCl (Vancomycin 1gm) 1 gm in 250 mls @ 133.333 mls/hr IVPB STAT STA PRN Reason: Protocol Stop: 10/25/17 02:57 Last Admin: 10/25/17 02:20 Dose: 133.333 mls/hr eMAR Start Stop Document 10/25/17 02:20 JOL (Rec: 10/25/17 02:21 JOL [id number]) Intravenous Solution Start Date 10/25/17 Start Time 02:20 End Date 10/25/17 End time 03:50 Total Infusion Time 90 Sodium Chloride (Sodium Chloride 0.9%) 1,000 mls @ 30 mls/hr IV .Q24H PAUL Piperacillin Sod/Tazobactam Sod (Zosyn 3.375 In Ns 100ml) 100 mls @ 200 mls/hr IVPB Q6 PAUL PRN Reason: Protocol Stop: 10/25/17 12:29 Last Admin: 10/25/17 12:35 Dose: 200 mls/hr eMAR Start Stop Document 10/25/17 12:35 JUSTYNA (Rec: 10/25/17 12:35 JUSTYNA [id number]) Intravenous Solution Start Date 10/25/17 Start Time 12:35 End Date 10/25/17 End time 13:05 Total Infusion Time 30 - Scribe Statement The provider has reviewed the documentation as recorded by the Mehdi Reyes Provider Scribe Attestation: All medical record entries made by the Scribe were at my direction and personally dictated by me. I have reviewed the chart and agree that the record accurately reflects my personal performance of the history, physical exam, medical decision making, and the department course for this patient. I have also personally directed, reviewed, and agree with the discharge instructions and disposition. Disposition/Present on Arrival - Present on Arrival Any Indicators Present on Arrival: No History of DVT/PE: No History of Uncontrolled Diabetes: No Urinary Catheter: No History of Decub. Ulcer: No History Surgical Site Infection Following: None - Disposition Have Diagnosis and Disposition been Completed?: Yes Diagnosis: Pneumonia, Hypothermia, Dysphagia Disposition: HOSPITALIZED Disposition Time: 02:33 Patient Plan: Admission Patient Problems: Current Active Problems Problem Status Onset Dysphagia Acute Hypothermia Acute Pneumonia Acute Condition: STABLE
[2017-10-24 22:21] LABS: INR 4.73 (0.93-1.08)
[2017-10-24 23:04] LABS: PH,URINE 5.5 (4.7-8.0); URINE BILIRUBIN NEGATIVE (NEGATIVE); URINE BLOOD NEGATIVE (NEGATIVE); URINE GLUCOSE (UA) NEGATIVE (NEGATIVE); URINE LEUKOCYTE ESTERASE NEGATIVE Leu/uL (NEGATIVE); URINE PROTEIN NEGATIVE mg/dL (<30 mg/dL); URINE UROBILINOGEN 0.2 E.U./dL (<1 E.U./dL)
[2017-10-24 23:05] LABS: URINE APPEARANCE CLEAR (CLEAR); URINE COLOR YELLOW (YELLOW)
[2017-10-24 23:39] LABS: TROPONIN I 0.02 ng/mL
[2017-10-24 23:44] LABS: ALBUMIN 3.1 g/dL (3.0-4.8); ALT/SGPT 243 U/L (7-56); AST/SGOT 176 U/L (14-36); BLOOD UREA NITROGEN 28 mg/dL (7-21); CALCIUM 9.1 mg/dL (8.4-10.5); GFR AFRICAN-AMERICAN > 60; GFR NON-AFRICAN AMERICAN > 60
--- NOTE | 2017-10-25 00:26 | CT ---
EXAM: CT Head Without Intravenous Contrast CLINICAL HISTORY: 87 years old, female; Condition or disease; Other: Dysphagia TECHNIQUE: Axial computed tomography images of the head/brain without intravenous contrast. All CT scans at this facility use one or more dose reduction techniques, viz.: automated exposure control; ma/kV adjustment per patient size (including targeted exams where dose is matched to indication; i.e. head); or iterative reconstruction technique. Coronal and sagittal reformatted images were created and reviewed. COMPARISON: CT - HEAD W/O CONTRAST 2017-09-26 20:41 FINDINGS: Brain: Moderate atrophy. No intracranial hemorrhage. No mass. Few scattered foci of decreased attenuation within periventricular/subcortical white matter. No definite edema. Ventricles: No hydrocephalus. Bones/joints: No acute fracture. Soft tissues: Unremarkable. Vasculature: Minimal atherosclerotic disease of intracranial arteries. Sinuses: Mild mucosal thickening +/- minimal fluid of frontal sinuses. Scattered mild mucosal thickening of ethmoid sinuses. Mastoid air cells: No mastoid effusion. Orbits: Unremarkable as visualized. IMPRESSION: 1. Nonspecific white matter changes. Acute infarction may be CT occult within first 24 hours. If a focal deficit persists, consider followup CT or MRI for further evaluation. 2. Incidental/non-acute findings are described above.
[2017-10-25] MEDS ORDERED: Piperacillin/Tazobact 3.375 gm 100 ML IV STA (01:00)
--- NOTE | 2017-10-25 01:01 | CT ---
EXAM: CT Neck Without Intravenous Contrast CLINICAL HISTORY: 87 years old, female; Condition or disease; Other: Dysphagia TECHNIQUE: Axial computed tomography images of the neck without intravenous contrast. All CT scans at this facility use one or more dose reduction techniques, viz.: automated exposure control; ma/kV adjustment per patient size (including targeted exams where dose is matched to indication; i.e. head); or iterative reconstruction technique. Coronal and sagittal reformatted images were created and reviewed. COMPARISON: No relevant prior studies available. FINDINGS: Limitations: Lack of intravenous contrast. Nasopharynx: Unremarkable. Oropharynx: No significant tonsillar enlargement. Hypopharynx: Unremarkable. Larynx: Unremarkable. Normal epiglottis. Trachea: Unremarkable. Retropharyngeal space: Unremarkable. Submandibular/parotid glands: Unremarkable. Glands are normal in size. Thyroid: Mildly heterogeneous and prominent with several subcentimeter cysts or nodules. Bones/joints: Degenerative changes of shoulders, sternoclavicular joints, and spine. No acute fracture. Soft tissues: Unremarkable. Vasculature: Atherosclerotic disease of visualized arteries. Lymph nodes: No pathologically enlarged lymph nodes. Sinuses: Scattered minimal to mild mucosal thickening. Mastoid air cells: No mastoid effusion. Lung apices: Mild mosaic pattern of lung parenchyma. Scattered groundglass/air space opacities within visualized upper and lower lobes. Pleural space: Bilateral pleural effusions, incompletely imaged. Tubes, lines and devices: LEFT pacemaker. IMPRESSION: 1. Groundglass/airspace opacities, nonspecific. DDX: Pneumonia, pulmonary edema, interstitial lung disease, pneumonitis. Clinical correlation and follow up are recommended. 2. Heterogeneous thyroid. Followup as clinically warranted. 3. Incidental/non-acute findings are described above.
[2017-10-25] MEDS ORDERED: Vancomycin 1gm in NS 250ml 1 GM/250 ML BAG IVPB STA (01:05)
[2017-10-25] MEDS ORDERED: Sodium Chloride 0.9% 1,000 ML IV SCH (02:24)
--- NOTE | 2017-10-25 02:25 | CP.PCM.CON ---
History of Present Illness - History of Present Illness History of Present Illness: Please note history from daughter at bedside as patient was ao x [address] 87yo female PMHx HTN, CHF, chronic Afib, breast ca, multiple UTIs, recent pacemaker placement for bradycardia presents to ED from rehab for decreased appetite and dysphagia. As per daughter patient has been having Ensure with liquid diet and soft diet. Patient apparently has difficulty to transit time when swallowing. Patient had no complaints of fever, chills, chest pain, shortness of breath, nausea, vomiting, diarrhea, urinary symptoms, back pain, neck pain, headache, dizziness, or any other complaints. PMHx: HTN, CHF, chronic Afib, breast ca, multiple UTIs PSurgHx: R breast lumpectomy, hysterectomy, pacemaker placement, cholecystectomy Meds: pls see chart ALL: TMP-SMX SocHx: denies tobacco/drug use/EtOH abuse FamHx: noncontributory PMD: Condo Review of Systems - Review of Systems Systems not reviewed;Unavailable: Dementia Past Patient History - Infectious Disease Hx of Infectious Diseases: None - Tetanus Immunizations Tetanus Immunization: Unknown - Past Social History Smoking Status: Never Smoked - CARDIAC Hx Atrial Fibrillation: Yes Hx Hypertension: Yes Other/Comment: L sided pacemaker - PULMONARY Hx Respiratory Disorders: Yes Hx Pneumonia: Yes - NEUROLOGICAL Hx Dizziness: Yes (vertigo) - HEENT Hx HEENT Problems: Yes (R eye retinal bleeding. c/o blurry vision) - RENAL Other/Comment: uti's - ENDOCRINE/METABOLIC Hx Hypothyroidism: Yes - HEMATOLOGICAL/ONCOLOGICAL Hx Cancer: Yes (r lumpectomy/nose) - INTEGUMENTARY Hx Basil Cell: Yes - MUSCULOSKELETAL/RHEUMATOLOGICAL Hx Arthritis: Yes (knees) - GASTROINTESTINAL Hx Gastrointestinal Disorders: (cholecystectomy) - GENITOURINARY/GYNECOLOGICAL Hx Reproductive Disorders: Yes (hx breast ca) - PSYCHIATRIC Hx Psychophysiologic Disorder: No Hx Substance Use: No - SURGICAL HISTORY Hx Hysterectomy: Yes Hx Mastectomy: No (R Breast Lumpectomy) Hx Orthopedic Surgery: Yes Other/Comment: r ovarian cyst. L pacemaker - ANESTHESIA Hx Anesthesia: Yes Hx Anesthesia Reactions: No Meds Allergies/Adverse Reactions: Allergies Allergy/AdvReac Type Severity Reaction Status Date / Time sulfamethoxazole Allergy RASH Verified 09/22/17 19:59 [From Bactrim] trimethoprim [From Bactrim] Allergy RASH Verified 09/22/17 19:59 - Medications Medications: Current Medications Vancomycin HCl (Vancomycin 1gm) 1 gm in 250 mls @ 133.333 mls/hr IVPB STAT STA PRN Reason: Protocol Stop: 10/25/17 02:57 Last Admin: 10/25/17 02:20 Dose: 133.333 mls/hr Sodium Chloride (Sodium Chloride 0.9%) 1,000 mls @ 30 mls/hr IV .Q24H PAUL Physical Exam - Constitutional Appears: No Acute Distress, Older Than Stated Age - Head Exam Head Exam: ATRAUMATIC, NORMAL INSPECTION, NORMOCEPHALIC - Eye Exam Eye Exam: EOMI. absent: Conjunctival injection, Scleral icterus - ENT Exam ENT Exam: Mucous Membranes Moist - Neck Exam Neck exam: Positive for: Normal Inspection - Respiratory Exam Respiratory Exam: absent: Respiratory Distress - Cardiovascular Exam Cardiovascular Exam: Irregular Rhythm, +S1, +S2. absent: Systolic Murmur - GI/Abdominal Exam GI & Abdominal Exam: Normal Bowel Sounds, Soft. absent: Organomegaly, Tenderness - Rectal Exam Rectal Exam: Deferred - Extremities Exam Extremities exam: Positive for: normal inspection. Negative for: pedal edema - Neurological Exam Neurological exam: Alert Additional comments: AO x 2 - Psychiatric Exam Psychiatric exam: Normal Affect, Normal Mood - Skin Skin Exam: Dry, Intact Results - Vital Signs Recent Vital Signs: Last Vital Signs Temp 95.1 F L 10/25/17 00:50 Pulse 60 10/25/17 00:50 Resp 16 10/25/17 00:50 BP 100/71 10/25/17 00:50 Pulse Ox 100 10/25/17 00:50 - Labs Result Diagrams: 10/26/17 07:00 10/25/17 07:30 Labs: Laboratory Results - last 24 hr 10/24/17 10/24/17 10/24/17 21:45 21:45 21:45 WBC 6.4 RBC 3.87 Hgb 12.1 Hct 36.2 MCV 93.5 MCH 31.3 MCHC 33.4 RDW 15.0 H Plt Count 78 L MPV 12.5 H PT 55.6 H INR 4.73 H* APTT 78.3 H pO2 158 H VBG pH 7.43 VBG pCO2 51.0 VBG HCO3 33.9 H VBG Total CO2 35.5 H VBG O2 Sat (Calc) 99.4 H VBG Base Excess 8.0 H VBG Potassium 5.1 Sodium 139.0 Chloride 103.0 Glucose 79 Lactate 1.8 FiO2 21.0 Potassium Carbon Dioxide Anion Gap BUN Creatinine Est GFR ( Amer) Est GFR (Non-Af Amer) Random Glucose Calcium Total Bilirubin AST ALT Alkaline Phosphatase Lactate Dehydrogenase Total Creatine Kinase Troponin I Total Protein Albumin Globulin Albumin/Globulin Ratio Venous Blood Potassium 5.1 Urine Color Urine Appearance Urine pH Ur Specific [place] Urine Protein Urine Glucose (UA) Urine Ketones Urine Blood Urine Nitrate Urine Bilirubin Urine Urobilinogen Ur Leukocyte Esterase 10/24/17 10/24/17 22:58 23:00 WBC RBC Hgb Hct MCV MCH MCHC RDW Plt Count MPV PT INR APTT pO2 VBG pH VBG pCO2 VBG HCO3 VBG Total CO2 VBG O2 Sat (Calc) VBG Base Excess VBG Potassium Sodium 139 Chloride 99 Glucose Lactate FiO2 Potassium 3.9 Carbon Dioxide 34 H Anion Gap 9 L BUN 28 H Creatinine 0.6 L Est GFR ( Amer) > 60 Est GFR (Non-Af Amer) > 60 Random Glucose 78 Calcium 9.1 Total Bilirubin 0.9 AST 176 H D ALT 243 H Alkaline Phosphatase 291 H D Lactate Dehydrogenase 492 Total Creatine Kinase 28 L Troponin I 0.02 D Total Protein 6.2 Albumin 3.1 Globulin 3.1 Albumin/Globulin Ratio 1.0 L Venous Blood Potassium Urine Color Yellow Urine Appearance Clear Urine pH 5.5 Ur Specific [place] 1.025 Urine Protein Negative Urine Glucose (UA) Negative Urine Ketones Trace H Urine Blood Negative Urine Nitrate Negative Urine Bilirubin Negative Urine Urobilinogen 0.2 Ur Leukocyte Esterase Negative Assessment & Plan - Assessment and Plan (Free Text) Assessment: 87yo female PMHx HTN, CHF, chronic Afib, breast ca, multiple UTIs, recent pacemaker placement for bradycardia presents to ED from rehab for decreased appetite and dysphagia. Plan: Patient is hemodynamically stable and airway is protected. She does not meet ICU criteria and will be admitted to TELE floor. Patient was started on broad spectrum IV abx for possible aspiration pna. ID consulted and GI consulted for dysphagia. F/u studies and monitor clinically. Discussed with Dr. Alesha Chamberlain PGY2
[2017-10-25] MEDS: Piperacillin/Tazobact 3.375 gm 100 ML IVPB SCH ×2 (07:44→12:35)
[2017-10-25 07:57] LABS: BASO # 0.01 K/mm3 (0.0-2.0); BASO % 0.1 % (0.0-3.0); EOS # 0.1 (0.0-0.7); EOS % 1.6 % (1.5-5.0); GRAN # 5.49 (1.4-6.5); GRAN % 80.4 % (50.0-68.0); HEMOGLOBIN 10.4 g/dL (12.0-16.0); LYMPH # 0.8 (1.2-3.4); LYMPH % 11.6 % (22.0-35.0); MEAN CELL VOLUME 93.3 fl (80.0-105.0); MEAN CORPUSCULAR HEMOGLOBIN 30.1 pg (25.0-35.0); MEAN CORPUSCULAR HGB CONC 32.3 g/dl (31.0-37.0); MEAN PLATELET VOLUME 10.7 fl (7.0-11.0); MONO # 0.4 (0.1-0.6); MONO % 6.3 % (1.0-6.0); RBC 3.45 10^6/uL (3.5-6.1); RED CELL DISTRIBUTION WIDTH 15.1 % (11.5-14.5); WHITE BLOOD COUNT 6.8 10^3/ul (4.5-11.0)
[2017-10-25 09:00] LABS: ALBUMIN 2.9 g/dL (3.0-4.8); ALT/SGPT 207 U/L (7-56); AST/SGOT 153 U/L (14-36); BLOOD UREA NITROGEN 25 mg/dL (7-21); CALCIUM 8.7 mg/dL (8.4-10.5); GFR AFRICAN-AMERICAN > 60; GFR NON-AFRICAN AMERICAN > 60
--- NOTE | 2017-10-25 09:00 | HP ---
HISTORY OF PRESENT ILLNESS: Mr. Welsh is an 87-year-old female with history of atrial fibrillation, pneumonia, recent cardiac pacemaker placement for bradycardia, deconditioning presented to ED with dysphagia. She is not able to swallow liquids or soft diet. Developed lethargy. CT chest was done in the ED, which showed bilateral ground glass opacities. CT head was unremarkable except chronic ischemic changes, white matter changes. No fever, no chills, no rigors. She was also found to be hypothermic in the ED.. She also has history of breast cancer, treated in the past. PAST MEDICAL HISTORY: Atrial fibrillation, left-sided pacemaker bilateral pneumonia, recurrent dizziness, vertigo, history of breast cancer, osteoarthritis. PAST SURGICAL HISTORY: Right breast lumpectomy, pacemaker placement, right ovarian cyst removal. ALLERGIES SULFA, BACTRIM CAUSES RASH. PERSONAL HISTORY Nonsmoker. No history of alcohol abuse. SOCIAL HISTORY Positive family history of cancer. HOME MEDICATIONS: Coumadin 2 mg daily, digoxin 0.25 mg daily Tylenol 650 every 6 hours p.r.n., digoxin 1 tablet daily, Lasix 1 tablet daily, Senokot. REVIEW OF SYSTEMS: As per HPI. Rest of 12-point review of systems reviewed, negative. PHYSICAL EXAMINATION: GENERAL: Comfortable, in bed, in no acute distress. VITAL SIGNS: Temperature 96.8, heart rate 60 per minute, blood pressure 114/60, oxygen saturation 100% on room air, heart rate is 60 per minute. HEENT: Pallor positive. NECK: Supple. No lymphadenopathy. CHEST: Air entry present and equal bilaterally. No added sounds. No crepitations. CARDIOVASCULAR: S1, S2 normal. No murmur. No gallop. ABDOMEN: Soft, nontender. No hepatosplenomegaly. EXTREMITIES: No edema. CENTRAL NERVOUS SYSTEM: Alert, oriented x3. No focal sensory motor deficit. SKIN: No petechiae. No rash. SPINE: Nontender. IMAGING DATA: As per HPI. She has white count 6.4, hemoglobin 12.1, hematocrit 36.2, platelets 78,000. Sodium 139, potassium 3.9, BUN 28, creatinine 0.6. Troponin -0.04. INR 4.7. ASSESSMENT AND PLAN 1. Bilateral pneumonia. 2. Dysphagia. 3. Atrial fibrillation. 4. Cardiac pacemaker. 5. History of breast cancer. 6. Thrombocytopenia. 7. Lethargy 8. Sepsis PLAN She will be admitted to Telemonitoring. ICU evaluation requested for hypothermia. IV fluid at 70 mL an hour, broad-spectrum antibiotic Zosyn . ID consultation with Dr. Robert requested. GI consultation with Dr. Niño for dysphagia. We will keep her n.p.o. IV fluid normal saline at 75 mL an hour. digoxin IV 0.1 mg daily. neurology consult Dr. Berman requested for lethargy. óMnica Astudillo MD MTDKate
[2017-10-25] MEDS ORDERED: Digoxin 125 mcg (0.125 mg) Tab PO SCH (10:00)
[2017-10-25] MEDS ORDERED: Docusate-Senna 50 mg-8.6 mg Tab PO SCH (10:00)
--- NOTE | 2017-10-25 10:07 | RAD ---
HISTORY: Sepsis Patient COMPARISON: Comparison chest 09/20/2017 FINDINGS: LUNGS: Mild pulmonary venous congestive changes with dense opacity left lung base likely representing combination of atelectasis and or infiltrate and effusion. Suspect mild right bibasilar alveolar-type infiltrates and small right-sided effusion PLEURA: As above. No pneumothorax apparent. CARDIOVASCULAR: Heart appears enlarged. No change single lead pacemaker. OSSEOUS STRUCTURES: No significant abnormalities. VISUALIZED UPPER ABDOMEN: Normal. OTHER FINDINGS: None. IMPRESSION: Mild pulmonary venous congestive changes with dense opacity left lung base likely representing combination of atelectasis and or infiltrate and effusion. Suspect mild right bibasilar alveolar-type infiltrates and small right-sided effusion.
[2017-10-25] MEDS: Sodium Chloride 0.9% 1,000 ML IV SCH (12:33)
[2017-10-25] MEDS: Digoxin 500 mcg/2ml (0.5 mg/2ml) Inj IVP SCH (12:37)
--- NOTE | 2017-10-25 14:41 | US ---
HISTORY: Abnormal CT. Sepsis. COMPARISON: Correlation made with most recent CT scan chest 10/15/2014 which imaged the upper abdomen. TECHNIQUE: Sonographic evaluation of the abdomen. FINDINGS: LIVER: Measures 12.0 cm. Increased echogenicity of the liver parenchyma which could be due to fatty infiltration however other infiltrative hepatic cellular disease process not excluded. No masses or significant intrahepatic bile duct dilatation seen on images presented. GALLBLADDER: Cholecystectomy. COMMON BILE DUCT: Measures 4.5 mm. No stones. No dilatation. PANCREAS: Not visualized due to body habitus and bowel gas. RIGHT KIDNEY: Measures 9.0 x 4.5 x 4.9cm. Normal echogenicity. No calculus, mass, or hydronephrosis. LEFT KIDNEY: Measures 9.0 x 4.7 x 4.9cm. Normal echogenicity. No calculus, mass, or hydronephrosis. SPLEEN: Normal in size and contour. No mass. AORTA: Not visualized due to body habitus and bowel gas IVC: Not visualized due to body habitus and bowel gas OTHER FINDINGS: None. IMPRESSION: Limited study as above. Post cholecystectomy. Liver exhibits increased attenuation possibly due to fatty infiltration however other infiltrative hepatocellular disease process not excluded Pancreas, aorta and IVC not visualized due to body habitus and bowel gas. Consider followup CT scan for further evaluation if indicated
[2017-10-25] MEDS: Vancomycin 750mg 750 MG/250 ML BAG IVPB SCH (18:10)
--- NOTE | 2017-10-25 21:39 | CARD ---
APPROVED REPORT EKG Measurement Heart [id number] [id number] <Conclusion> Electronic ventricular pacemaker
[2017-10-25] MEDS: Meropenem IV 1 gm in NS 50 ML IVPB SCH (22:25)
[2017-10-26] MEDS: Vancomycin 750mg 750 MG/250 ML BAG IVPB SCH ×2 (03:48→16:36)
[2017-10-26] MEDS: Sodium Chloride 0.9% 1,000 ML IV SCH (03:53)
[2017-10-26] MEDS: Meropenem IV 1 gm in NS 50 ML IVPB SCH ×3 (06:18→21:15)
[2017-10-26] MEDS ORDERED: Barium Sulfate Susp 2.1% w/v, 2.0% w/w 450 mL Bottle PO ONE (06:57)
[2017-10-26 07:38] LABS: BASO # 0.01 K/mm3 (0.0-2.0); BASO % 0.1 % (0.0-3.0); EOS # 0.1 (0.0-0.7); EOS % 1.1 % (1.5-5.0); GRAN # 5.66 (1.4-6.5); GRAN % 77.3 % (50.0-68.0); HEMOGLOBIN 10.3 g/dL (12.0-16.0); LYMPH # 1.2 (1.2-3.4); LYMPH % 16.2 % (22.0-35.0); MEAN CELL VOLUME 96.7 fl (80.0-105.0); MEAN CORPUSCULAR HEMOGLOBIN 30.9 pg (25.0-35.0); MEAN PLATELET VOLUME 12.1 fl (7.0-11.0); MONO # 0.4 (0.1-0.6); MONO % 5.3 % (1.0-6.0); RBC 3.33 10^6/uL (3.5-6.1); RED CELL DISTRIBUTION WIDTH 15.7 % (11.5-14.5); WHITE BLOOD COUNT 7.3 10^3/ul (4.5-11.0)
[2017-10-26 07:43] LABS: INR 2.89 (0.93-1.08)
[2017-10-26 08:07] LABS: ALBUMIN 2.9 g/dL (3.0-4.8); ALT/SGPT 156 U/L (7-56); AST/SGOT 103 U/L (14-36); BLOOD UREA NITROGEN 21 mg/dL (7-21); CALCIUM 8.4 mg/dL (8.4-10.5); FREE T4 1.36 ng/dL (0.78-2.19); GFR AFRICAN-AMERICAN > 60; GFR NON-AFRICAN AMERICAN > 60
[2017-10-26] MEDS ORDERED: Dextrose 50% SYRINGE Inj (50 ml) IVP ONE (08:27)
[2017-10-26] MEDS ORDERED: Dextrose 50% SYRINGE Inj (50 ml) ONE ×2 (08:33→22:11)
[2017-10-26 09:18] LABS: HEPATITIS B SURFACE AG Negative (NEGATIVE)
[2017-10-26 09:25] LABS: HEPATITIS A IGM NEGATIVE (NEGATIVE); HEPATITIS B CORE AB NEGATIVE (NEGATIVE)
[2017-10-26 09:35] LABS: HEPATITIS C ANTIBODY NEGATIVE (NEGATIVE)
[2017-10-26] MEDS: Dextrose 5%/0.9% NS 1,000 ML IV SCH (09:38)
--- NOTE | 2017-10-26 10:16 | CT ---
PROCEDURE: CT Chest, Abdomen and Pelvis without intravenous contrast HISTORY: Sepsis COMPARISON: None. TECHNIQUE: Radiation dose: Total exam DLP = mGy-cm. This CT exam was performed using one or more of the following dose reduction techniques: Automated exposure control, adjustment of the mA and/or kV according to patient size, and/or use of iterative reconstruction technique. FINDINGS: CT CHEST WITHOUT CONTRAST: LUNGS: Large bilateral pleural effusions with compressive atelectasis particularly at the left base with fluid tracking into both major fissures. MEDIASTINUM: Unremarkable. Normal caliber aorta and pulmonary arterial trunk. Cardiomegaly. LYMPH NODES: Unremarkable. PLEURA: Unremarkable. No pneumothorax. No pleural fluid. BONES: Unremarkable. OTHER FINDINGS: None. CT ABDOMEN AND PELVIS: LIVER: Unremarkable. No gross lesion or ductal dilatation. GALLBLADDER AND BILE DUCTS: Cholecystectomy. PANCREAS: Unremarkable. No gross lesion or ductal dilatation. SPLEEN: Unremarkable. ADRENALS: Unremarkable. No mass. KIDNEYS AND URETERS: Unremarkable. No hydronephrosis. No solid mass. VASCULATURE: Unremarkable. No aortic aneurysm. BOWEL: Colonic diverticulosis. No obstruction. No gross mural thickening. APPENDIX: Normal appendix. PERITONEUM: 5.0 centimeter area of fatty infiltration in the deep pelvis likely representing fat necrosis. . No free fluid. No free air. LYMPH NODES: Unremarkable. No enlarged lymph nodes. BLADDER: Joshua catheter in the bladder air within the urinary bladder likely due to instrumentation. . REPRODUCTIVE: Hysterectomy. BONES: No acute fracture. OTHER FINDINGS: None. IMPRESSION: Large bilateral pleural effusions with compressive atelectasis particularly at the left base with fluid tracking into both major fissures. Cardiomegaly. Findings likely secondary to CHF. Status post cholecystectomy. Fat necrosis in the deep posterior pelvis.
--- NOTE | 2017-10-26 11:41 | CON ---
DATE: 10/25/2017 CHIEF COMPLAINT: Weakness times several days. HISTORY OF PRESENT ILLNESS: This is an 87-year-old female, intermediate patient, daughter of nursing staff in endoscopy suite with past medical history significant for atrial fibrillation, hyperthyroidism, basal cell cancer, history of pneumonia, congestive heart failure, breast cancer, and hypertension, who recently had a pacemaker placed approximately 3 weeks ago, IS ALLERGIC TO BACTRIM, who is now admitted in the emergency room with the diagnosis of pneumonia. Infectious Disease consultation requested and the patient's daughter was at the bedside with nurse in the endoscopy suite gives the history. Twelve-point review of systems is performed. The patient was admitted with poor appetite, change in mental status, but weak on the baseline, dysphasia and there is no fevers reported, no chills according to the emergency room. No chest pain, mild shortness of breath. No nausea or vomiting, no headaches. PAST MEDICAL HISTORY: Significant for breast cancer, atrial fibrillation, hypertension, systolic congestive heart failure, hyperthyroidism, basal cell cancer, right community-acquired pneumonia, aortic insufficiency, mitral regurgitation, osteoporosis. PAST SURGICAL HISTORY: Significant for lumpectomy, hysterectomy, cholecystectomy, and a recent pacemaker insertion 3 weeks ago. ALLERGIES: THE PATIENT IS ALLERGIC TO BACTRIM. SOCIAL HISTORY: She lives in the intermediate. MEDICATIONS AT HOME: Includes Lasix, digoxin, Coumadin, vitamins, acidophilus. PHYSICAL EXAMINATION GENERAL: The patient is in bed. VITAL SIGNS: Temperature of 97, earlier the temperature was 91.1, heart rate of 60, respiratory rate of 20, blood pressure is 106/50, the patient's saturation is 91% on room air. HEENT: Unremarkable. NECK: Supple. LUNGS: Have decreased breath sounds. Examination of the right chest, pacemaker site is clean. HEART: Normal S1 and S2. ABDOMEN: Soft, nontender. No organomegaly, no rebound, no guarding, no masses. LABORATORY DATA: Reveals a white count of 6.4, hemoglobin of 12, platelets of 78, which is new, 80% granulocytosis. Coagulation is noted. The patient's creatinine is 0.6. The patient's LFTs are elevated at 176, ALT is 242, alkaline phosphatase of 291. Urinalysis is unremarkable, digoxin level was 1.8. The patient had an ultrasound of the abdomen which showed a limited study read by Dr. Kalpesh Alfonso. History and physical examination by Dr. Astudillo is reviewed. Chest x-ray reveals consistent with congestive heart failure, dense opacity. We then suspect mid right bibasilar alveolar tract infiltrate. note is reviewed. History and physical examination not complete, partial. EKG is done, no EKG results are available. ASSESSMENT AND PLAN: This is an 87-year-old female, intermediate patient with atrial fibrillation, hypertension, breast cancer, systolic congestive heart failure, hyperthyroidism, basal cell cancer and right community-acquired pneumonia, aortic insufficiency, mitral regurgitation, and osteoporosis, presenting with hypothermia, hypoxia, thrombocytopenia, shortness of breath and change in mental status with infiltrates from the intermediate. 1. Severe sepsis with healthcare-associated pneumonia, rule out bacteremia from the recent pacemaker placement versus GI because of elevated liver function tests and alkaline phosphatase. Also, the patient had a cholecystectomy. The patient was given a dose of vancomycin. I have started the patient on vancomycin, meropenem, pending blood cultures, urine cultures, sputum cultures, procalcitonin, hepatitis profile, Gastroenterology workup, and we will make further recommendations with availability of initial clinical response and workup results. We will use vancomycin and meropenem pending cultures, procalcitonin and initial workup. Case discussed with the patient's daughter at length. The patient's overall prognosis is poor. Jb Robert MD
--- NOTE | 2017-10-26 12:09 | PN ---
DATE: 10/26/2017 SUBJECTIVE: The patient was not arousable this morning. She was found to have hypoglycemia with low fingerstick, D50 will be given. PHYSICAL EXAMINATION: VITAL SIGNS: Temperature is 98.1, pulse of 59, blood pressure 134/71, respirations 18. GENERAL: The patient is lying in bed, flat, comfortable. HEENT: No oral lesion. Anicteric sclerae. Moist mucosa. NECK: No JVD, adenopathy, or thyromegaly. CARDIOVASCULAR: S1 and S2, regular. No murmurs, rubs, or gallops. LUNGS: Clear to auscultation bilaterally. No wheeze, rales, or rhonchi. ABDOMEN: Bowel sounds are positive. Soft, nontender and nondistended. EXTREMITIES: No cyanosis, clubbing or edema. LABORATORY DATA: White count of 7.3, hemoglobin 10.3, creatinine 0.8. Abdominal ultrasound done shows that the liver exhibits increased attenuation possibly due to fatty infiltration. ASSESSMENT: 1. Hospital-acquired pneumonia. 2. Dysphagia. 3. Delirium. 4. Atrial fibrillation. 5. Cardiac pacemaker. 6. Thrombocytopenia. PLAN: The patient is currently comfortable. She had glucose as low as 39. She is going to be given D50. Her procalcitonin level is low. She had elevated LFTs that has improved as well. The patient is currently receiving IV fluids. I will change her IV fluids to D5 normal saline. She is on vancomycin. She is on meropenem for antibiotics. She currently remained n.p.o. She is being followed by Dr. Robert and Dr. Niño. Her INR is therapeutic at 2.8. Jasson Chand MD
--- NOTE | 2017-10-26 13:21 | CP.PCM.PN ---
<Paulo Christine - Last Filed: 10/26/17 13:16> Subjective - Date & Time of Evaluation Date of Evaluation: 10/26/17 Time of Evaluation: 08:55 - Subjective Subjective: GI progress note. Dr. Niño Pt seen and examined at bedside this morning. Episode of hypoglycemia noted, given D50. No other complaints noted. Objective - Vital Signs/Intake and Output Vital Signs (last 24 hours): Temp Pulse Resp BP Pulse Ox 98.1 F 65 18 134/71 98 10/26/17 06:00 10/26/17 12:55 10/26/17 06:00 10/26/17 06:00 10/26/17 06:00 Intake and Output: 10/26/17 10/26/17 06:59 18:59 Intake Total 1250 Output Total 900 Balance 350 - Medications Medications: Current Medications Acetaminophen (Tylenol 650 Mg Supp) 650 mg RC Q6H PRN PRN Reason: Fever >100.4 F Digoxin (Lanoxin) 0.1 mg IVP QOTHERDAY [facility] Last Admin: 10/25/17 12:37 Dose: 0.1 mg Meropenem (Merrem Iv 1 Gm Premix) 50 mls @ 100 mls/hr IVPB Q8 [facility] PRN Reason: Protocol Stop: 11/03/17 22:01 Last Admin: 10/26/17 06:18 Dose: 100 mls/hr Vancomycin HCl (Vancomycin 750 Mg In Ns) 750 mg in 250 mls @ 167 mls/hr IVPB Q12H [facility] PRN Reason: Protocol Stop: 11/03/17 16:31 Last Admin: 10/26/17 03:48 Dose: 167 mls/hr Dextrose/Sodium Chloride (Dextrose 5%/0.9% Ns 1000 Ml) 1,000 mls @ 50 mls/hr IV .Q20H [facility] Last Admin: 10/26/17 09:38 Dose: 50 mls/hr Warfarin Sodium (Coumadin) 2 mg PO 1800 PAUL PRN Reason: Protocol - Labs Labs: 10/26/17 07:00 10/26/17 07:00 PT 34.0 SECONDS (9.4-12.5) H 10/26/17 07:00 INR 2.89 (0.93-1.08) H 10/26/17 07:00 APTT 78.3 Seconds (25.1-36.5) H 10/24/17 21:45 - Constitutional Appears: Non-toxic, No Acute Distress - Head Exam Head Exam: ATRAUMATIC, NORMAL INSPECTION, NORMOCEPHALIC - ENT Exam ENT Exam: Mucous Membranes Moist - Respiratory Exam Respiratory Exam: NORMAL BREATHING PATTERN. absent: Accessory Muscle Use - GI/Abdominal Exam GI & Abdominal Exam: Soft. absent: Distended, Guarding, Rigid, Tenderness, Rebound - Extremities Exam Extremities Exam: Normal Inspection. absent: Calf Tenderness Assessment and Plan - Assessment and Plan (Free Text) Assessment: 87yo F with pneumonia and possible sepsis. r/o intra-abdominal pathology - Neck CT noted - LFTs trending down - INR theraputic Plan: - Continue Abx - f/u CT Chest/Abd/Pelvis to r/o concurrent intra-abdominal pathology - Consider adjustment in IVF with Dextrose Further recs as per Dr. Renay Christine PGY1 <Chandni Niño V - Last Filed: 10/26/17 23:35> Objective - Vital Signs/Intake and Output Vital Signs (last 24 hours): Temp Pulse Resp BP Pulse Ox 97.6 F 59 L 18 134/72 99 10/26/17 18:00 10/26/17 18:00 10/26/17 18:00 10/26/17 18:00 10/26/17 18:00 Intake and Output: 10/26/17 10/27/17 18:59 06:59 Intake Total 0 Output Total 300 Balance -300 - Medications Medications: Current Medications Acetaminophen (Tylenol 650 Mg Supp) 650 mg RC Q6H PRN PRN Reason: Fever >100.4 F Dextrose (Dextrose 50% Inj) 50 ml IVP PRN PRN PRN Reason: Hypoglycemia Last Admin: 10/26/17 22:16 Dose: 50 ml Digoxin (Lanoxin) 0.1 mg IVP QOTHERDAY [facility] Last Admin: 10/25/17 12:37 Dose: 0.1 mg Meropenem (Merrem Iv 1 Gm Premix) 50 mls @ 100 mls/hr IVPB Q8 [facility] PRN Reason: Protocol Stop: 11/03/17 22:01 Last Admin: 10/26/17 21:15 Dose: 100 mls/hr Vancomycin HCl (Vancomycin 750 Mg In Ns) 750 mg in 250 mls @ 167 mls/hr IVPB Q12H [facility] PRN Reason: Protocol Stop: 11/03/17 16:31 Last Admin: 10/26/17 16:36 Dose: 167 mls/hr Dextrose/Sodium Chloride (Dextrose 5%/0.9% Ns 1000 Ml) 1,000 mls @ 50 mls/hr IV .Q20H [facility] Last Admin: 10/26/17 09:38 Dose: 50 mls/hr Warfarin Sodium (Coumadin) 2 mg PO 1800 PAUL PRN Reason: Protocol Last Admin: 10/26/17 17:00 Dose: Not Given - Labs Labs: 10/26/17 07:00 10/26/17 07:00 PT 34.0 SECONDS (9.4-12.5) H 10/26/17 07:00 INR 2.89 (0.93-1.08) H 10/26/17 07:00 APTT 78.3 Seconds (25.1-36.5) H 10/24/17 21:45 Attending/Attestation - Attestation I have personally seen and examined this patient.: Yes I have fully participated in the care of the patient.: Yes I have reviewed all pertinent clinical information, including history, physical exam and plan: Yes Notes (Text): This is an addendum to GI progress report dictated by the [employer].The patient was seen and examined earlier. Medical records, lab studies, imagings were reviewed. Last 24 hours events reviewed. Agreed with the above treatment plan as outlined in [employer] 's notes the with the addition of the following 10/26/17 23:34
--- NOTE | 2017-10-26 20:11 | CP.PCM.PN ---
Subjective - Date & Time of Evaluation Date of Evaluation: 10/26/17 Time of Evaluation: 10:20 - Subjective Subjective: Patient is still somewhat lethargic, no fevers, no diarrhea. Objective - Vital Signs/Intake and Output Vital Signs (last 24 hours): Temp Pulse Resp BP Pulse Ox 97.6 F 59 L 18 134/72 99 10/26/17 18:00 10/26/17 18:00 10/26/17 18:00 10/26/17 18:00 10/26/17 18:00 Intake and Output: 10/26/17 10/27/17 18:59 06:59 Intake Total 0 Output Total 300 Balance -300 - Medications Medications: Current Medications Acetaminophen (Tylenol 650 Mg Supp) 650 mg RC Q6H PRN PRN Reason: Fever >100.4 F Digoxin (Lanoxin) 0.1 mg IVP QOTHERDAY [facility] Last Admin: 10/25/17 12:37 Dose: 0.1 mg Meropenem (Merrem Iv 1 Gm Premix) 50 mls @ 100 mls/hr IVPB Q8 [facility] PRN Reason: Protocol Stop: 11/03/17 22:01 Last Admin: 10/26/17 13:21 Dose: 100 mls/hr Vancomycin HCl (Vancomycin 750 Mg In Ns) 750 mg in 250 mls @ 167 mls/hr IVPB Q12H [facility] PRN Reason: Protocol Stop: 11/03/17 16:31 Last Admin: 10/26/17 16:36 Dose: 167 mls/hr Dextrose/Sodium Chloride (Dextrose 5%/0.9% Ns 1000 Ml) 1,000 mls @ 50 mls/hr IV .Q20H [facility] Last Admin: 10/26/17 09:38 Dose: 50 mls/hr Warfarin Sodium (Coumadin) 2 mg PO 1800 PAUL PRN Reason: Protocol Last Admin: 10/26/17 17:00 Dose: Not Given - Labs Labs: 10/26/17 07:00 10/26/17 07:00 PT 34.0 SECONDS (9.4-12.5) H 10/26/17 07:00 INR 2.89 (0.93-1.08) H 10/26/17 07:00 APTT 78.3 Seconds (25.1-36.5) H 10/24/17 21:45 - Constitutional Appears: Chronically Ill - Head Exam Head Exam: NORMAL INSPECTION - Respiratory Exam Respiratory Exam: Decreased Breath Sounds - Cardiovascular Exam Cardiovascular Exam: +S1, +S2 - GI/Abdominal Exam GI & Abdominal Exam: Soft. absent: Tenderness Assessment and Plan - Assessment and Plan (Free Text) Plan: Assessment severe sepsis due to bilateral HCAP transaminitis, etiology to be determined, R/O passive congestion with CHF history of left lower lobe pneumonia atrial fibrillation hyperthyroidism history of right breast lumpectomy history of pneumonia history of basal cell carcinoma S/P hysterectomy history of ovarian cyst S/P pacemaker placement Plan continue Vancomycin and Merrem day 2; blood cx negative x 24 hours - complete 4- 7 days of therapy follow up GI evaluation will monitor clinically
[2017-10-26] MEDS ORDERED: Dextrose 50% SYRINGE Inj (50 ml) IVP PRN (22:05)
[2017-10-27] MEDS: Vancomycin 750mg 750 MG/250 ML BAG IVPB SCH ×2 (03:31→17:45)
[2017-10-27] MEDS: Dextrose 5%/0.9% NS 1,000 ML IV SCH (04:57)
[2017-10-27] MEDS: Meropenem IV 1 gm in NS 50 ML IVPB SCH ×2 (05:01→13:44)
[2017-10-27 07:20] LABS: BASO # 0.01 K/mm3 (0.0-2.0); BASO % 0.1 % (0.0-3.0); EOS # 0.1 (0.0-0.7); EOS % 0.7 % (1.5-5.0); GRAN # 7.52 (1.4-6.5); GRAN % 82.3 % (50.0-68.0); HEMOGLOBIN 10.6 g/dL (12.0-16.0); LYMPH # 0.9 (1.2-3.4); LYMPH % 9.4 % (22.0-35.0); MEAN CELL VOLUME 97.7 fl (80.0-105.0); MEAN CORPUSCULAR HEMOGLOBIN 30.5 pg (25.0-35.0); MEAN CORPUSCULAR HGB CONC 31.3 g/dl (31.0-37.0); MEAN PLATELET VOLUME 11.3 fl (7.0-11.0); MONO # 0.7 (0.1-0.6); MONO % 7.5 % (1.0-6.0); RBC 3.47 10^6/uL (3.5-6.1); RED CELL DISTRIBUTION WIDTH 15.4 % (11.5-14.5); WHITE BLOOD COUNT 9.1 10^3/ul (4.5-11.0)
[2017-10-27 07:40] LABS: ALT/SGPT 133 U/L (7-56); AST/SGOT 73 U/L (14-36); BLOOD UREA NITROGEN 19 mg/dL (7-21); CALCIUM 8.7 mg/dL (8.4-10.5); GFR AFRICAN-AMERICAN > 60; GFR NON-AFRICAN AMERICAN > 60
[2017-10-27] MEDS: Digoxin 500 mcg/2ml (0.5 mg/2ml) Inj IVP SCH (09:28)
--- NOTE | 2017-10-27 11:41 | PN ---
DATE: 10/27/2017 SUBJECTIVE: The patient is confused, does not communicate well. PHYSICAL EXAMINATION: VITAL SIGNS: Temperature is 97.7, pulse of 52, blood pressure is 138/75, respirations 20. GENERAL: The patient is lying in bed, flat, comfortable. HEENT: No oral lesion. Anicteric sclerae. Moist mucosa. NECK: No JVD, adenopathy, or thyromegaly. CARDIOVASCULAR: S1 and S2, regular. No murmurs, rubs, or gallops. LUNGS: Clear to auscultation bilaterally. No wheeze, rales, or rhonchi. ABDOMEN: Bowel sounds are positive, soft, nontender and nondistended. EXTREMITIES: No cyanosis, clubbing or edema. LABS: White count of 7.3, hemoglobin 10.3. The patient's fingersticks the last was 195. ASSESSMENT: 1. Hypoglycemia, improved. 2. Hospital-acquired pneumonia. 3. Sepsis. 4. Dysphagia. 5. Delirium. 6. Atrial fibrillation. 7. Cardiac pacemaker. 8. Thrombocytopenia. 9. Do not resuscitate. PLAN: The patient is currently n.p.o. She is on D5 normal saline because of the hyperglycemic episode, most likely from sepsis yesterday. She was hypothermic when she first came in to the ER. I believe that the hypoglycemia is most likely from the sepsis. She had to be given D50 yesterday. Her LFTs are improving. The patient is DNR. The patient has ultrasound of her abdomen that showed limited study, she is post cholecystectomy. Liver exhibits increased attenuation possibly due to fatty infiltration. A CAT scan done of the chest, abdomen and pelvis showed large bilateral pleural effusions with compressive atelectasis, particularly at the left base with fluid tracking into both major fissures. I will get a consultation with Dr. Barraza. Overall prognosis is guarded. Jasson Chand MD
--- NOTE | 2017-10-27 13:24 | CP.PCM.PN ---
Subjective - Date & Time of Evaluation Date of Evaluation: 10/27/17 Time of Evaluation: 10:10 - Subjective Subjective: Seen and examined at the bedside earlier today, chart was reviewed. Patient is awake and alert this morning, yesterday was reported to be lethargic and episodes of hypoglycemia, seen by speech therapy but patient was lethargic. Currently nothing by mouth. Patient is a poor historian. Does not specifically complain of dysphagia at this time. No other events reported overnight. Objective - Vital Signs/Intake and Output Vital Signs (last 24 hours): Temp Pulse Resp BP Pulse Ox 98.6 F 59 L 17 133/75 99 10/27/17 12:00 10/27/17 12:00 10/27/17 12:00 10/27/17 12:00 10/27/17 05:44 Intake and Output: 10/27/17 10/27/17 06:59 18:59 Intake Total 800 Output Total 350 Balance 450 - Medications Medications: Current Medications Acetaminophen (Tylenol 650 Mg Supp) 650 mg RC Q6H PRN PRN Reason: Fever >100.4 F Dextrose (Dextrose 50% Inj) 50 ml IVP PRN PRN PRN Reason: Hypoglycemia Last Admin: 10/26/17 22:16 Dose: 50 ml Digoxin (Lanoxin) 0.1 mg IVP QOTHERDAY [facility] Last Admin: 10/27/17 09:28 Dose: 0.1 mg Furosemide (Lasix) 40 mg IVP Q12 PAUL Last Admin: 10/27/17 09:27 Dose: 40 mg Meropenem (Merrem Iv 1 Gm Premix) 50 mls @ 100 mls/hr IVPB Q8 PAUL PRN Reason: Protocol Stop: 11/03/17 22:01 Last Admin: 10/27/17 05:01 Dose: 100 mls/hr Vancomycin HCl (Vancomycin 750 Mg In Ns) 750 mg in 250 mls @ 167 mls/hr IVPB Q12H PAUL PRN Reason: Protocol Stop: 11/03/17 16:31 Last Admin: 10/27/17 03:31 Dose: 167 mls/hr Dextrose/Sodium Chloride (Dextrose 5%/0.9% Ns 1000 Ml) 1,000 mls @ 50 mls/hr IV .Q20H [facility] Last Admin: 10/27/17 04:57 Dose: Not Given Warfarin Sodium (Coumadin) 2 mg PO 1800 PAUL PRN Reason: Protocol Last Admin: 10/26/17 17:00 Dose: Not Given - Labs Labs: 10/27/17 06:30 10/27/17 06:30 PT 34.0 SECONDS (9.4-12.5) H 10/26/17 07:00 INR 2.89 (0.93-1.08) H 10/26/17 07:00 APTT 78.3 Seconds (25.1-36.5) H 10/24/17 21:45 - Constitutional Appears: No Acute Distress - Head Exam Head Exam: NORMOCEPHALIC - Eye Exam Eye Exam: Normal appearance. absent: Scleral icterus - ENT Exam ENT Exam: Mucous Membranes Moist - Neck Exam Neck Exam: Normal Inspection - Respiratory Exam Respiratory Exam: Decreased Breath Sounds, NORMAL BREATHING PATTERN. absent: Respiratory Distress - Cardiovascular Exam Cardiovascular Exam: +S1, +S2 - GI/Abdominal Exam GI & Abdominal Exam: Soft, Normal Bowel Sounds. absent: Guarding, Tenderness, Organomegaly, Rebound - Extremities Exam Extremities Exam: absent: Calf Tenderness, Pedal Edema - Neurological Exam Neurological Exam: Alert, Altered, Awake - Skin Skin Exam: Dry, Warm Assessment and Plan - Assessment and Plan (Free Text) Assessment: Assessment: Pneumonia Sepsis, status post CT scan chest abdomen and pelvis, showed large pleural effusion, fat necrosis deep in the pelvis Dysphagia, status post next CT showing mildly prominent cysts in the thyroid Elevated liver enzymes which are trending down, status post abdominal ultrasound , status post cholecystectomy,CBD 4.5 cm no dilatation,low attenuation in the liver, possible fatty liver, may be secondary to hepatic congestion or medication induced, hepatitis panel negative Delirium Atrial fibrillation Pacemaker Thrombocytopenia Plan: Trend LFTs On IV antibiotics Currently nothing by mouth on IV F pending swallow evaluation, patient more alert today, discussed with nursing staff On Coumadin Seen and discussed with Dr. Niño.
--- NOTE | 2017-10-27 15:27 | CON ---
DATE: 10/27/2017 PULMONARY CONSULTATION REASON FOR CONSULTATION: Pleural effusions. REFERRING PHYSICIAN: Jasson Chand MD. History was obtained via extensive discussion with the telemetry nurse. I have also interviewed the patient and reviewed the chart at length. HISTORY OF PRESENT ILLNESS: The patient is an 87-year-old female, with past medical history significant for recent right lower lobe pneumonia, right pleural effusion, atrial fibrillation, recent pacemaker insertion, who presented to [facility] - originally on 10/24/2017 - with decreased appetite, dysphagia, weakness and lethargy. The patient was thus admitted for additional evaluation. Again, I did discuss the case with the night nurse at length. I have also discussed the case with the patient at length. There is no history of shortness of breath at rest, dyspnea on exertion, cough or sputum production. There is also no history of chest pain, coughing up of blood or chest pain - made worse with deep respirations. There is no history of temperatures, chills or infectious exposure. There is no history of night sweats. There is a history of weight loss with decreased appetite as of recent. No history of calf pains. No history of syncope or diaphoresis. No history of recent travel or trauma. REVIEW OF SYSTEMS: As above, the patient did present with dysphagia. No nausea, vomiting or diarrhea. No acute urinary symptoms. No new musculoskeletal complaints. Rest of the review of systems is negative. ALLERGIES: BACTRIM. SOCIAL HISTORY: Negative for tobacco. Negative for alcohol. FAMILY HISTORY: No inheritable diseases. HOME MEDICATIONS: Include Lasix, Digitek, Coumadin, vitamins. PHYSICAL EXAMINATION: GENERAL: The patient appears comfortable this morning. She is not short of breath at rest. VITAL SIGNS: Temperature is 97.7, pulse 62, respirations 18, blood pressure 138/75. Oxygen saturation on nasal cannula is 99%. HEENT: Normocephalic, atraumatic. No JVD. CARDIOVASCULAR: Systolic ejection murmur at the lower left sternal border. No S3 gallop. LUNGS: Decreased breath sounds at the bases. No rhonchi. No wheezing. EXTREMITIES: Mild edema. No cyanosis or clubbing. Calves are nontender to palpation. GI: Abdomen is soft, nontender and nondistended. Bowel sounds are positive. SKIN: No acute rash. NEUROLOGIC: Limited at the present time. PERTINENT LABORATORY DATA: Pertinent laboratory data: CAT scan of the chest was done on 10/25/2017 and reviewed. There is a moderate left pleural effusion noted. There is also a small right pleural effusion noted. Adjacent to the pleural effusions is some compressive atelectasis. There is no lymphadenopathy. CBC: White count 7.3, hemoglobin 10.3, hematocrit 32.2, platelets of 62,000. INR 2.89. Complete metabolic profile: Chloride 108, glucose 39, AST 103, ALT 156, alkaline phosphatase 269, albumin 2.9. Rest of the metabolic profile is within normal limits. Procalcitonin was done on 10/25/2017. It is negative - 0.05. IMPRESSION: 1. Failure to thrive. 2. Bilateral pleural effusions. 3. Hypoalbuminemia. 4. Increased liver function enzymes. 5. Anemia. PLAN: Again, I did discuss the case with the night nurse at length. I have also reviewed the chart at length, and discussed the case with the patient at length. The patient presented to [facility] - originally on 10/24/2017 - with a several-day history of increasing weakness, lethargy, decreased oral intake and dysphasia. Over the past few days, the nurse states that the patient has woken up significantly. She is awake and alert, conversive this morning. In addition, there are no pulmonary symptoms reported by either the patient or the nurse. I did review the CAT scan of the chest. The CAT scan of the chest shows bilateral pleural effusions (left worse than right). Adjacent to the pleural effusions is compressive atelectasis. There are no definite signs of acute pneumonia. There is no lymphadenopathy. At this point in time, I would take a conservative approach. I would proceed with thoracentesis ONLY IF the patient becomes symptomatic. In addition, the patient is on Coumadin and is thrombocytopenic. Inputs by Infectious Disease, GI and Neurology are noted. Again, as per the nurse, the patient's clinical status has improved significantly over the past few days. Additional pulmonary intervention will be based on the clinical status of the patient. I will discuss the above with Dr. Chand this morning. Thank you very much for this pulmonary consultation. Robert Barraza MD [facility] # [id number] TESS
--- NOTE | 2017-10-27 23:32 | PN ---
DATE: 10/27/2017 SUBJECTIVE: The patient is in bed, in no acute distress, nontoxic. PHYSICAL EXAMINATION: VITAL SIGNS: Temperature is 98, blood pressure is 130/70, respiratory rate of 20, heart rate of 59. HEENT: Examination of HEENT is unremarkable. NECK: Supple. LUNGS: Have decreased breath sounds. HEART: Normal S1, S2. ABDOMEN: Soft and nontender. LABORATORY DATA: Reveals the patient's white count is 9.1, hemoglobin of 10, and platelets of 71. Chemistry reveals BUN of 19, creatinine of 0.7, and procalcitonin is 0.05. Urinalysis is noted. Serology is negative. Microbiology reveals the blood cultures are negative and urine culture is negative. ASSESSMENT AND PLAN: This is an 87-year-old with severe sepsis due to bilateral healthcare-associated pneumonia, transaminitis, versus congestive heart failure, history of lower lobe pneumonia, atrial fibrillation, hyperthyroidism, history of lumpectomy and pneumonia, basal cell cancer, pacemaker, ovarian cyst, on vancomycin, meropenem day #3. Review of the medication reveals vancomycin and meropenem, protractive, would complete 4 to 7 days. Overall prognosis is quite poor. The patient is seen early this morning in room 271, bed 2. Jb Robert MD
--- NOTE | 2017-10-28 02:08 | CON ---
DATE: HISTORY OF PRESENT ILLNESS: This is an 87-year-old female with past medical history of pneumonia, atrial fibrillations, recent pacemaker. The patient went to rehab and the patient had decreased appetite, weakness and lethargy, brought back to hospital, found to have pneumonia and called to evaluate the patient for lethargy. Family at bedside. ALLERGIES: ALLERGY TO BACTRIM. REVIEW OF SYSTEMS: A 10-point review of systems, the patient has dysphagia and nausea and vomiting. SOCIAL HISTORY: Does not smoke, does not drink. PHYSICAL EXAMINATION: HEENT: Normocephalic and atraumatic. NECK: Supple. NEUROLOGIC: Awake, oriented to self. No aphasia. Cranial nerves II through XII were tested. Pupils reactive. EOM intact. Visual field full. No facial asymmetry. Tongue midline. Deep tendon reflexes are 1+. Both plantars are downgoing. Sensory appears intact. Cerebellar, gait, deferred. IMPRESSION: Encephalopathy, possibly toxic metabolic; pneumonia; bilateral pleural effusion; and anemia. PLAN: Workup in progress. Continue present management. We will follow up. Otf Berman MD
[2017-10-28] MEDS: Meropenem IV 1 gm in NS 50 ML IVPB SCH ×3 (05:26→22:30)
[2017-10-28] MEDS: Vancomycin 750mg 750 MG/250 ML BAG IVPB SCH ×2 (05:27→16:22)
[2017-10-28 07:40] LABS: BASO # 0.01 K/mm3 (0.0-2.0); BASO % 0.1 % (0.0-3.0); EOS # 0.1 (0.0-0.7); EOS % 0.5 % (1.5-5.0); GRAN # 9.21 (1.4-6.5); GRAN % 80.8 % (50.0-68.0); HEMOGLOBIN 10.3 g/dL (12.0-16.0); LYMPH # 1.1 (1.2-3.4); LYMPH % 9.3 % (22.0-35.0); MEAN CELL VOLUME 96.4 fl (80.0-105.0); MEAN CORPUSCULAR HEMOGLOBIN 30.5 pg (25.0-35.0); MEAN CORPUSCULAR HGB CONC 31.6 g/dl (31.0-37.0); MONO # 1.1 (0.1-0.6); MONO % 9.3 % (1.0-6.0); RBC 3.38 10^6/uL (3.5-6.1); RED CELL DISTRIBUTION WIDTH 15.4 % (11.5-14.5); WHITE BLOOD COUNT 11.4 10^3/ul (4.5-11.0)
[2017-10-28 07:59] LABS: PROTHROMBIN TIME 53.7 SECONDS (9.4-12.5)
[2017-10-28 08:00] LABS: INR 4.53 (0.93-1.08)
[2017-10-28 08:09] LABS: ALT/SGPT 99 U/L (7-56); AST/SGOT 46 U/L (14-36); BLOOD UREA NITROGEN 19 mg/dL (7-21); CALCIUM 8.6 mg/dL (8.4-10.5); GFR AFRICAN-AMERICAN > 60; GFR NON-AFRICAN AMERICAN > 60
--- NOTE | 2017-10-28 08:39 | PN ---
DATE: 10/28/2017 PULMONARY NOTE SUBJECTIVE: The patient appears comfortable this morning. She is not short of breath at rest. PHYSICAL EXAMINATION VITAL SIGNS: Temperature is 97, pulse 62, respirations 18, blood pressure 138/78. Oxygen saturation on nasal cannula is 92%-97%. HEENT: Normocephalic, atraumatic. No JVD. CARDIOVASCULAR: Systolic ejection murmur at the lower left sternal border. No S3 gallop. LUNGS: Decreased breath sounds at the bases. No rhonchi. No wheezing. EXTREMITIES: Mild edema. No cyanosis or clubbing. Calves are nontender to palpation. GI: Abdomen is soft, nontender and nondistended. Bowel sounds are positive. SKIN: No acute rash. NEUROLOGIC: Limited at the present time. IMPRESSION: 1. Failure to thrive. 2. Bilateral pleural effusions. 3. Hypoalbuminemia. 4. Increased liver function enzymes. 5. Anemia. PLAN: The patient appears comfortable this morning. She is not short of breath at rest. She is awake and alert and conversive. She does state to feeling better overall. On physical exam, there is no significant bronchospasm noted. In addition, there is no significant alveolar-arterial gradient. I will continue with the aspiration precautions for now. The patient remains on antibiotic therapy - as per Infectious Disease. There are no temperatures noted. There is no leukocytosis. Inputs by GI and Neurology are also noted. The clinical status of the patient is certainly improved - compared to the initial presentation. Again, I would ONLY recommend aggressive intervention (thoracentesis) if the patient becomes symptomatic. Again, the patient is on Coumadin. She is also thrombocytopenic. I will discuss the above with Dr. Chand. Robert Barraza MD MTDD
--- NOTE | 2017-10-28 11:28 | PN ---
DATE: SUBJECTIVE: The patient has no complaints of any headaches or dizziness. She is more awake and alert. She is able to swallow. PHYSICAL EXAMINATION: VITAL SIGNS: Temperature is 97, pulse of 62, blood pressure 138/78, respirations 20, O2 saturation 92%. GENERAL: The patient is lying in bed, flat, comfortable. HEENT: No oral lesion. Anicteric sclerae. Moist mucosa. NECK: No JVD, adenopathy, or thyromegaly. CARDIOVASCULAR: S1 and S2, regular. No murmurs, rubs, or gallops. LUNGS: Clear to auscultation bilaterally. No wheeze, rales, or rhonchi. ABDOMEN: Bowel sounds are positive. Soft, nontender and nondistended. EXTREMITIES: No cyanosis, clubbing or edema. ASSESSMENT: 1. Hypoglycemia, resolved. 2. Hospital-acquired pneumonia. 3. Sepsis, improved. 4. Dysphagia. 5. Delirium. 6. Atrial fibrillation. 7. Thrombocytopenia, chronic. 8. Cardiac pacemaker. 9. Do not resuscitate. PLAN: The patient is currently comfortable. She had blood cultures and urine cultures, which were negative. The patient is on Coumadin. The patient's INR is elevated at 4.5. We will hold her Coumadin. The patient is on Lasix twice a day, but I have placed it on hold because of the patient's elevated sodium. She is on antibiotics with vancomycin and meropenem. She is on day #4 of antibiotics. She has two more days of antibiotics left. The patient is on a dysphagia diet. I did speak to the patient's daughter, Natalya, to give her an update. Jasson Chand MD
--- NOTE | 2017-10-28 16:21 | CP.PCM.PN ---
Subjective - Date & Time of Evaluation Date of Evaluation: 10/28/17 Time of Evaluation: 10:40 - Subjective Subjective: More awake today, no fevers, breathing better, no abdominal pain, no diarrhea. Objective - Vital Signs/Intake and Output Vital Signs (last 24 hours): Temp Pulse Resp BP Pulse Ox 97.7 F 62 18 114/59 L 92 L 10/28/17 12:00 10/28/17 14:00 10/28/17 12:00 10/28/17 12:00 10/28/17 06:00 Intake and Output: 10/28/17 10/28/17 06:59 18:59 Intake Total 1070 300 Output Total 1000 600 Balance 70 -300 - Medications Medications: Current Medications Acetaminophen (Tylenol 650 Mg Supp) 650 mg RC Q6H PRN PRN Reason: Fever >100.4 F Dextrose (Dextrose 50% Inj) 50 ml IVP PRN PRN PRN Reason: Hypoglycemia Last Admin: 10/26/17 22:16 Dose: 50 ml Digoxin (Lanoxin) 0.1 mg IVP QOTHERDAY [facility] Last Admin: 10/27/17 09:28 Dose: 0.1 mg Furosemide (Lasix) 40 mg IVP Q12 PAUL Last Admin: 10/27/17 09:27 Dose: 40 mg Meropenem (Merrem Iv 1 Gm Premix) 50 mls @ 100 mls/hr IVPB Q8 PAUL PRN Reason: Protocol Stop: 11/03/17 22:01 Last Admin: 10/28/17 13:23 Dose: 100 mls/hr Vancomycin HCl (Vancomycin 750 Mg In Ns) 750 mg in 250 mls @ 167 mls/hr IVPB Q12H PAUL PRN Reason: Protocol Stop: 11/03/17 16:31 Last Admin: 10/28/17 05:27 Dose: 167 mls/hr Warfarin Sodium (Coumadin) 2 mg PO 1800 PAUL PRN Reason: Protocol Last Admin: 10/27/17 18:28 Dose: 2 mg - Labs Labs: 10/28/17 07:00 10/28/17 07:00 PT 53.7 SECONDS (9.4-12.5) H 10/28/17 07:00 INR 4.53 (0.93-1.08) H* 10/28/17 07:00 APTT 78.3 Seconds (25.1-36.5) H 10/24/17 21:45 - Constitutional Appears: Chronically Ill - Head Exam Head Exam: NORMAL INSPECTION - Neck Exam Neck Exam: absent: Meningismus - Respiratory Exam Respiratory Exam: Decreased Breath Sounds - Cardiovascular Exam Cardiovascular Exam: +S1, +S2 - GI/Abdominal Exam GI & Abdominal Exam: Soft. absent: Tenderness Assessment and Plan - Assessment and Plan (Free Text) Plan: Assessment severe sepsis due to bilateral HCAP transaminitis, etiology to be determined, R/O passive congestion with CHF history of left lower lobe pneumonia atrial fibrillation hyperthyroidism history of right breast lumpectomy history of pneumonia history of basal cell carcinoma S/P hysterectomy history of ovarian cyst S/P pacemaker placement Plan continue Vancomycin and Merrem day 4; blood cx negative x 24 hours - complete 4- 7 days of therapy follow up further GI evaluation - monitor and trend transaminases will continue to monitor clinically
--- NOTE | 2017-10-28 18:50 | CP.PCM.PN ---
Subjective - Date & Time of Evaluation Date of Evaluation: 10/28/17 Time of Evaluation: 09:45 - Subjective Subjective: GI Progress note. Dr. Niño Pt seen and examined at bedside. No acute events overnight. States that she feels better. No F/C. Denies N/V/D. No abdominal pain. No CP/SOB. Tolerating current diet. Objective - Vital Signs/Intake and Output Vital Signs (last 24 hours): Temp Pulse Resp BP Pulse Ox 97.8 F 61 16 132/64 92 L 10/28/17 17:43 10/28/17 18:00 10/28/17 17:43 10/28/17 17:43 10/28/17 06:00 Intake and Output: 10/28/17 10/28/17 06:59 18:59 Intake Total 1070 300 Output Total 1000 600 Balance 70 -300 - Medications Medications: Current Medications Acetaminophen (Tylenol 650 Mg Supp) 650 mg RC Q6H PRN PRN Reason: Fever >100.4 F Dextrose (Dextrose 50% Inj) 50 ml IVP PRN PRN PRN Reason: Hypoglycemia Last Admin: 10/26/17 22:16 Dose: 50 ml Digoxin (Lanoxin) 0.1 mg IVP QOTHERDAY [facility] Last Admin: 10/27/17 09:28 Dose: 0.1 mg Furosemide (Lasix) 40 mg IVP Q12 PAUL Last Admin: 10/27/17 09:27 Dose: 40 mg Meropenem (Merrem Iv 1 Gm Premix) 50 mls @ 100 mls/hr IVPB Q8 PAUL PRN Reason: Protocol Stop: 11/03/17 22:01 Last Admin: 10/28/17 13:23 Dose: 100 mls/hr Vancomycin HCl (Vancomycin 750 Mg In Ns) 750 mg in 250 mls @ 167 mls/hr IVPB Q12H PAUL PRN Reason: Protocol Stop: 11/03/17 16:31 Last Admin: 10/28/17 16:22 Dose: 167 mls/hr Warfarin Sodium (Coumadin) 2 mg PO 1800 PAUL PRN Reason: Protocol Last Admin: 10/27/17 18:28 Dose: 2 mg - Labs Labs: 10/28/17 07:00 10/28/17 07:00 PT 53.7 SECONDS (9.4-12.5) H 10/28/17 07:00 INR 4.53 (0.93-1.08) H* 10/28/17 07:00 APTT 78.3 Seconds (25.1-36.5) H 10/24/17 21:45 - Constitutional Appears: Non-toxic, No Acute Distress - Head Exam Head Exam: ATRAUMATIC, NORMAL INSPECTION, NORMOCEPHALIC - Eye Exam Eye Exam: EOMI, Normal appearance - ENT Exam ENT Exam: Mucous Membranes Moist - Respiratory Exam Respiratory Exam: NORMAL BREATHING PATTERN. absent: Accessory Muscle Use, Respiratory Distress - Cardiovascular Exam Cardiovascular Exam: absent: JVD - GI/Abdominal Exam GI & Abdominal Exam: Soft. absent: Distended, Firm, Guarding, Rigid, Tenderness , Rebound - Extremities Exam Extremities Exam: Normal Inspection - Neurological Exam Neurological Exam: Alert, Awake - Skin Skin Exam: Dry, Intact, Normal Color, Warm Assessment and Plan - Assessment and Plan (Free Text) Assessment: 87yo F with pneumonia, large bilateral pleural effusions, possible sepsis. - LFTs trending down - Thrombocytopenia - WBCs increasing - INR supratheraputic Plan: - Anticoagulation held - Trend LFTs. Avoid hepatotoxic meds - Continue Abx as per ID - Continue diet as tolerated Further recs as per Dr. Renay Christine PGY1
[2017-10-29] MEDS: Vancomycin 750mg 750 MG/250 ML BAG IVPB SCH ×2 (04:30→14:51)
[2017-10-29] MEDS: Meropenem IV 1 gm in NS 50 ML IVPB SCH ×3 (05:20→14:17)
[2017-10-29 06:23] VITALS: O2SAT 92
--- NOTE | 2017-10-29 07:19 | PN ---
DATE: 10/29/2017 PULMONARY NOTE SUBJECTIVE: The patient appears comfortable this morning. She is not short of breath at rest. She appears very weak. PHYSICAL EXAMINATION: VITAL SIGNS: Temperature is 97.8, pulse 69, respirations 18/20, blood pressure 143/86. Oxygen saturation on nasal cannula is 92%. HEENT: Normocephalic, atraumatic. NECK: No JVD. CARDIOVASCULAR: Systolic ejection murmur at the lower left sternal border. No S3 gallop. LUNGS: Decreased breath sounds at the bases. No rhonchi. No wheezing. EXTREMITIES: Mild edema. No cyanosis, no clubbing. Calves are nontender to palpation. GI: Abdomen is soft, nontender, nondistended. Bowel sounds are positive. SKIN: No acute rash. NEUROLOGIC: Exam limited at the present time. IMPRESSION: 1. Failure to thrive. 2. Bilateral pleural effusions. 3. Hypoalbuminemia. 4. Increased liver function enzymes. 5. Anemia. PLAN: Patient appears comfortable this morning. She is not short of breath at rest. She is awake and alert. She does, however, appear very weak. On physical exam, there is no significant bronchospasm. In addition, there is no significant alveolar-arterial gradient. I will continue with the current aspiration precautions for now. The patient remains on antibiotic therapy-as per Infectious Disease. There are no temperatures noted. There is no significant leukocytosis. Inputs by GI and Neurology are also noted. The clinical status of the patient is certainly improved-compared to her initial presentation. However, her future status/prognosis, unfortunately, remains very guarded at best. I will discuss the above with the attending physician. Robert Barraza MD TESS
[2017-10-29 09:08] LABS: EOS # 0.1 (0.0-0.7); EOS % 1.6 % (1.5-5.0); GRAN # 6.06 (1.4-6.5); GRAN % 72.8 % (50.0-68.0); HEMOGLOBIN 10.2 g/dL (12.0-16.0); LYMPH # 1.3 (1.2-3.4); LYMPH % 15.3 % (22.0-35.0); MEAN CELL VOLUME 96.1 fl (80.0-105.0); MEAN CORPUSCULAR HEMOGLOBIN 30.7 pg (25.0-35.0); MEAN PLATELET VOLUME 11.2 fl (7.0-11.0); MONO # 0.9 (0.1-0.6); MONO % 10.3 % (1.0-6.0); RBC 3.32 10^6/uL (3.5-6.1); RED CELL DISTRIBUTION WIDTH 15.5 % (11.5-14.5); WHITE BLOOD COUNT 8.3 10^3/ul (4.5-11.0)
[2017-10-29 09:17] LABS: INR 3.21 (0.93-1.08); PROTHROMBIN TIME 37.8 SECONDS (9.4-12.5)
[2017-10-29 09:18] LABS: ALBUMIN 2.9 g/dL (3.0-4.8); ALT/SGPT 81 U/L (7-56); AST/SGOT 37 U/L (14-36); BLOOD UREA NITROGEN 18 mg/dL (7-21); CALCIUM 8.6 mg/dL (8.4-10.5); GFR AFRICAN-AMERICAN > 60; GFR NON-AFRICAN AMERICAN > 60
[2017-10-29] MEDS: Digoxin 500 mcg/2ml (0.5 mg/2ml) Inj IVP SCH (10:14)
[2017-10-29 10:25] VITALS: PULSE 66
[2017-10-29] MEDS ORDERED: Potassium Chloride 20 mEq ER Tab PO ONE (10:31)
[2017-10-29 12:06] VITALS: RESP 18
--- NOTE | 2017-10-29 16:56 | CP.PCM.PN ---
Subjective - Date & Time of Evaluation Date of Evaluation: 10/29/17 Time of Evaluation: 10:50 - Subjective Subjective: Seen and examined at the bedside earlier today, chart reviewed. No acute overnight events reported. Patient still has some periods of confusion. Objective - Vital Signs/Intake and Output Vital Signs (last 24 hours): Temp Pulse Resp BP Pulse Ox 99 F 61 18 145/80 92 L 10/29/17 12:00 10/29/17 14:00 10/29/17 12:00 10/29/17 12:00 10/29/17 06:00 Intake and Output: 10/29/17 10/29/17 06:59 18:59 Intake Total 60 300 Output Total 200 600 Balance -140 -300 - Medications Medications: Current Medications Acetaminophen (Tylenol 650 Mg Supp) 650 mg RC Q6H PRN PRN Reason: Fever >100.4 F Dextrose (Dextrose 50% Inj) 50 ml IVP PRN PRN PRN Reason: Hypoglycemia Last Admin: 10/26/17 22:16 Dose: 50 ml Digoxin (Lanoxin) 0.1 mg IVP QOTHERDAY [facility] Last Admin: 10/29/17 10:14 Dose: 0.1 mg Furosemide (Lasix) 40 mg PO DAILY PAUL Last Admin: 10/29/17 10:16 Dose: 40 mg Meropenem (Merrem Iv 1 Gm Premix) 50 mls @ 100 mls/hr IVPB Q8 PAUL PRN Reason: Protocol Stop: 11/03/17 22:01 Last Admin: 10/29/17 14:17 Dose: Not Given Vancomycin HCl (Vancomycin 750 Mg In Ns) 750 mg in 250 mls @ 167 mls/hr IVPB Q12H PAUL PRN Reason: Protocol Stop: 11/03/17 16:31 Last Admin: 10/29/17 14:51 Dose: 167 mls/hr Warfarin Sodium (Coumadin) 2 mg PO 1800 PAUL PRN Reason: Protocol Last Admin: 10/27/17 18:28 Dose: 2 mg - Labs Labs: 10/29/17 09:00 10/29/17 09:00 PT 37.8 SECONDS (9.4-12.5) H 10/29/17 09:00 INR 3.21 (0.93-1.08) H 10/29/17 09:00 APTT 78.3 Seconds (25.1-36.5) H 10/24/17 21:45 - Constitutional Appears: No Acute Distress - Head Exam Head Exam: NORMOCEPHALIC - Eye Exam Eye Exam: Normal appearance. absent: Scleral icterus - ENT Exam ENT Exam: Mucous Membranes Moist - Neck Exam Neck Exam: Normal Inspection - Respiratory Exam Respiratory Exam: NORMAL BREATHING PATTERN. absent: Respiratory Distress - Cardiovascular Exam Cardiovascular Exam: +S1, +S2 - GI/Abdominal Exam GI & Abdominal Exam: Soft, Normal Bowel Sounds. absent: Guarding, Tenderness, Organomegaly, Rebound - Extremities Exam Extremities Exam: absent: Calf Tenderness - Neurological Exam Neurological Exam: Alert, Awake (confused at times) - Skin Skin Exam: Dry, Warm Assessment and Plan - Assessment and Plan (Free Text) Assessment: Assessment: Pneumonia Sepsis, status post CT scan chest abdomen and pelvis, showed large pleural effusion, fat necrosis deep in the pelvis Dysphagia, status post next CT showing mildly prominent cysts in the thyroid Elevated liver enzymes which are trending down, status post abdominal ultrasound , status post cholecystectomy,CBD 4.5 cm no dilatation,low attenuation in the liver, possible fatty liver, may be secondary to hepatic congestion or medication induced, hepatitis panel negative Delirium Atrial fibrillation Pacemaker Thrombocytopenia Plan: Trend LFTs, slowly improving On IV antibiotics continue pured diet On Coumadin Seen and discussed with Dr. Niño.
[2017-10-29 18:21] VITALS: BP 138/79; PULSE 66; TEMP 98
--- NOTE | 2017-10-30 02:09 | PN ---
DATE: 10/29/2017 SUBJECTIVE: The patient is in bed, in no acute distress, was seen earlier this morning. PHYSICAL EXAMINATION: VITAL SIGNS: Temperature is 99, blood pressure of 140/80, respiratory rate of 18, heart rate of 60. HEENT: Unremarkable. NECK: Supple. LUNGS: Have decreased breath sounds. HEART: Normal S1 and S2. ABDOMEN: Soft, nontender. LABORATORY DATA: White count is 8.3, hemoglobin of 10, platelets of 102. BUN of 18, creatinine of 0.7, alk phos is 200. Urinalysis is noted. Blood cultures are negative. Urine cultures are negative. Patient is on IV vancomycin and meropenem. Patient's procalcitonin is low. Dr. Barraza's note from this morning was reviewed. ASSESSMENT AND PLAN: This is an 87 year old female seen earlier today in 271, bed 2, with severe sepsis due to bilateral healthcare-associated pneumonia with elevated transaminitis and passive congestive heart failure, atrial fibrillation, hyperthyroidism, hysterectomy; on day #5 of vancomycin and meropenem, with cultures negative, procalcitonin is negative. AST is on a downward trend of 37 today, and AST is 81 and alk phos is 200. Urinalysis is noted. Overall mental status is much improved. Today is #5 on antibiotics, complete 4 to 7 days. We will discontinue the vancomycin. We will discontinue the meropenem within the next 24 hours. Jb Robert MD
--- NOTE | 2017-10-30 05:13 | DS ---
HISTORY OF PRESENT ILLNESS: Patient has no complaints of any chest pain, no shortness of breath, no headaches or dizziness. PHYSICAL EXAMINATION: VITAL SIGNS: Temperature is 97.9, pulse of 74, blood pressure 136/65, respirations 20, O2 saturation 91%. GENERAL: The patient is lying in bed, flat, comfortable. HEENT: No oral lesion. Anicteric sclerae. Moist mucosa. NECK: No JVD, adenopathy, or thyromegaly. CARDIOVASCULAR: S1 and S2, regular. No murmurs, rubs, or gallops. LUNGS: Clear to auscultation bilaterally. No wheeze, rales, or rhonchi. ABDOMEN: Bowel sounds are positive, soft, nontender and nondistended. EXTREMITIES: No cyanosis, clubbing or edema. ASSESSMENT: 1. Hospital-acquired pneumonia, improved. 2. Sepsis, resolved. 3. Hypoglycemia, improved. 4. Delirium, improved. 5. Dysphagia, improved. 6. Atrial fibrillation, on anticoagulation. 7. Thrombocytopenia, chronic. 8. Cardiac pacemaker. 9. Do not resuscitate. 10. Gait dysfunction. 11. Frailty. 12. Bilateral pleural effusion. PLAN: The patient is currently comfortable. She is on Coumadin, it is on hold. The patient is on Lasix twice a day because of the pleural effusion. The patient is on meropenem and vancomycin for antibiotics for the hospital-acquired pneumonia. She is tolerating her diet. Plans are to send her to the subacute rehab facility, possibly [facility] before she goes home. CONDITION: Stable. ACTIVITIES: Increase as tolerated. Jasson Chand MD
== END 2017-10-29 19:16 | DRG 871 ==
LOC: ED 20:47 → ERH 10-25 02:33 → 2RSO 10-25 04:40
PROVIDERS: ADMIT Internal Medicine Nephrology; ATTEND Internal Medicine Nephrology
DX: A41.9 Sepsis, unspecified organism (principal); J18.9 Pneumonia, unspecified organism; G92 Toxic encephalopathy; I50.22 Chronic systolic (congestive) heart failure; Y95 Nosocomial condition; I48.2 Chronic atrial fibrillation; D69.6 Thrombocytopenia, unspecified; R62.7 Adult failure to thrive; R13.10 Dysphagia, unspecified; M81.0 Age-related osteoporosis without current pathological fracture; I08.0 Rheumatic disorders of both mitral and aortic valves; Z66 Do not resuscitate; D64.9 Anemia, unspecified; E16.2 Hypoglycemia, unspecified; I11.0 Hypertensive heart disease with heart failure; R63.0 Anorexia; E05.90 Thyrotoxicosis, unspecified without thyrotoxic crisis or storm; R65.20 Severe sepsis without septic shock; R26.9 Unspecified abnormalities of gait and mobility; Z79.01 Long term (current) use of anticoagulants; Z87.440 Personal history of urinary (tract) infections; Z87.01 Personal history of pneumonia (recurrent); Z85.828 Personal history of other malignant neoplasm of skin; Z85.3 Personal history of malignant neoplasm of breast; Z90.710 Acquired absence of both cervix and uterus; Z95.0 Presence of cardiac pacemaker; Z88.2 Allergy status to sulfonamides

== ENCOUNTER 2018-01-03 18:44 | Inpatient (IN) | payer MEDICARE, BC ==
[2018-01-03 18:44] VITALS: PULSE 66
[2018-01-03] MEDS ORDERED: Glucagon Recombinant 1 mg Inj IV STA (19:10)
--- NOTE | 2018-01-03 19:11 | ED PDOC ---
Arrival/HPI - General Chief Complaint: GI Problem Time Seen by Provider: 01/03/18 19:04 Historian: Patient - History of Present Illness Narrative History of Present Illness (Text): 01/03/18 19:06 A 87 year old female, presents to the emergency department complaining of sensation of food stuck in her throat just prior to Emergency department arrival. Patient reports today as she was eating dinner, she ate a piece of chicken, as she swallowed felt the food stuck in her throat shortly afterwards. She mentions 2 nights ago having similar food stuck in her esophagus sensation but improved on its own and did not mention it to her daughter; pt now has worse food stuck in her throat sensation, unable to swallow her saliva, + intermittently gurgling and spitting; pt also coughing up her saliva; pt denied Fever/chills/sweats, no cp/sob/palpitations, no abd pain, no n/v, no numbness/ tingling, no urinary/bowel changes, no fall/trauma/travel/sick contact; pt is here for further evaluation; pt's without other complaints. PMD: Dr. Levi Customer Order Clerk: Dr. Connors GI: Dr. Niño last endoscopy was many years ago pt recently received a pacemaker for sick sinus syndrome Time/Duration: Prior to Arrival Symptom Onset: Sudden Symptom Course: Unchanged Severity Level: Severe Activities at Onset: Rest Context: Home Past Medical History - Provider Review Nursing Documentation Reviewed: Yes - Travel History Have you recently traveled outside [place] w/in the past 3 mons?: No - Past History Past History: Non-Contributing - Infectious Disease Hx of Infectious Diseases: None - Tetanus Immunization Tetanus Immunization: Unknown - Reproductive Menopause: Yes Currently : No - Cardiac Hx Atrial Fibrillation: Yes Hx Hypertension: Yes Hx Pacemaker: Yes Other/Comment: L sided pacemaker - Pulmonary Hx Respiratory Disorders: Yes Hx Pneumonia: Yes - Neurological Hx Dizziness: Yes (vertigo) - HEENT Hx HEENT Disorder: Yes (R eye retinal bleeding. c/o blurry vision) - Renal Other/Comment: uti's - Endocrine/Metabolic Hx Hypothyroidism: Yes - Hematological/Oncological Hx Cancer: Yes (r lumpectomy/nose) - Integumentary Hx Basal Cell Carcinoma: Yes - Musculoskeletal/Rheumatological Hx Arthritis: Yes (knees) - Gastrointestinal Hx Gastrointestinal Disorders: (cholecystectomy) - Genitourinary/Gynecological Hx Reproductive Disorders: Yes (hx breast ca) - Psychiatric Hx Psychophysiologic Disorder: No Hx Substance Use: No - Past Surgical History Past Surgical History: No Previous - Surgical History Hx Hysterectomy: Yes Hx Mastectomy: No (R Breast Lumpectomy) Hx Orthopedic Surgery: Yes Other/Comment: r ovarian cyst. L pacemaker - Anesthesia Hx Anesthesia: Yes Hx Anesthesia Reactions: No - Suicidal Assessment Feels Threatened In Home Enviroment: No Family/Social History - Physician Review Nursing Documentation Reviewed: Yes Family/Social History: No Known Family HX Smoking Status: Never Smoked Hx Alcohol Use: No Hx Substance Use: No Hx Substance Use Treatment: No Allergies/Home Meds Allergies/Adverse Reactions: Allergies sulfamethoxazole [From Bactrim] Allergy (Verified 01/03/18 18:56) RASH trimethoprim [From Bactrim] Allergy (Verified 01/03/18 18:56) RASH Home Medications: Home Meds Medication Instructions Recorded Confirmed Warfarin Sodium [Coumadin] 2 mg PO DAILY 06/10/14 01/03/18 Digoxin 0.25 mg PO QOTHERDAY 10/13/14 01/03/18 Furosemide [Lasix] 40 tab PO DAILY 10/24/17 01/03/18 Sennosides/Docusate Sodium [Stool 1 tab PO BID 10/24/17 01/03/18 Softener-Laxative Tablet] Multivit-Min/FA/Lycopen/Lutein 1 tab PO DAILY 01/03/18 01/03/18 [Centrum Silver Tablet] Review of Systems - Physician Review All systems were reviewed & negative as marked: Yes - Review of Systems Constitutional: absent: Fevers, Night Sweats Eyes: Normal ENT: Other (patient has sensation of food stuck in throat). absent: Hearing Changes, Sore Throat, Rhinorrhea Respiratory: Cough (coughing up saliva and food). absent: SOB Cardiovascular: absent: Chest Pain Gastrointestinal: absent: Abdominal Pain, Nausea, Vomiting Genitourinary Female: Normal Musculoskeletal: Normal Skin: Normal Neurological: Normal Endocrine: Normal Hemo/Lymphatic: Normal Psychiatric: Normal Physical Exam - Physical Exam Narrative Physical Exam (Text): 1909 General: alert/awake, GCS = 15, oriented x 2 (not to date/time), resting in bed , uncomfortable, cooperative, interactive; NAD Head: NC/AT; bi-temporal wasting EYE: PERRLA, EOMI, sclera anicteric, no nystagmus, no photophobia; visual field intact b/l Facial: WNL Oral: uvula/tongue are midline, no exudate/lesions, no drooling/stridor, no dysphonia; fair dentitions; + intermittently gurgling/coughing and spitting her saliva NECK: intact ROM, no midline tenderness, no nuchal rigidity, no meningeal signs ; no step off Chest: CTA b/l, no w/r/r; no tachypenia, no accessory muscle use noted; coarse breath sounds noted bibasiliar Chest Wall: no crepitus, no lesions, no gross deformities, no focal tenderness Cardiac: +S1, +S2, no m/r/r, no tachycardia Abdominal: +BS, soft/nd/nt, well nourished patient; no masses/rebound/guarding/ rigidity; no esteban's sign, no mcburney's point tenderness Extremities: decr ROM to lower ext, otherwise intact ROM to b/l upper ext, strength 5/5 grossly intact in all limbs, neurovasc intact b/l BACK: no step off, no midline tenderness, NO crepitus, no gross deformities noted; Intact ROM SKIN: cap refill < 1 sec, no ulcerations, no petechiae, no rashes; faint diffuse pallor noted NEURO: CNII-XII WNL, no facial asymmetries, no slurr speech, oriented x 2 NIH stroke scale ~ 0 Psych: normal insight, normal affect; follows command with ease Vital Signs Reviewed: Yes Vital Signs Temp Pulse Resp BP Pulse Ox 01/03/18 18:55 98.3 F 61 18 131/90 95 Temperature: Afebrile Blood Pressure: Normal Pulse: Regular Respiratory Rate: Normal Appearance: Positive for: Well-Appearing, Non-Toxic, Uncomfortable. No: Comfortable, Ill-Appearing, Unkept Pain Distress: None Mental Status: Positive for: other (alert/awake, oriented x 2) - Systems Exam Head: Present: Atraumatic, Normocephalic Medical Decision Making ED Course and Treatment: 01/03/18 19:08 Impression: 87 year old female with sensation of food stuck in her throat. esophageal food impaction, FB sensation Plan: -- EKG -- Chest X-ray -- Soft Tissue Neck X-Ray -- Labs -- Venous Blood Gas -- Glucagon -- IV Fluids -- Reassess and disposition Progress Notes: pt is resting in bed, unchanged status pt remains awake and alert, and interactive because pt's daughter is an Endoscopy nurse i was able to speak to Dr Niño immediately, Dr Niño agrees with Emergency department mgt/txt, is concern regarding pt's anticoagulation; awaiting for pt's lab results; pt will likely be admitted for endoscopy 01/03/18 20:20 due to pt's complaints, concern for airway is noted, will consult ICU Case discussed with Dr. Worley, intesivist on-call, who has been made aware of patient's condition and will see patient at bedside. 2030 Dr Worley evaluated patient at bedside, pt is cleared for tele admission 2119 Dr Niño contacted, recommend 1U of FFP to be transfused and will recheck pt' s INR in the morning and continue monitor; likely MORNING Endoscopy for the patient pt/family are in agreement 01/03/18 21:[address] Mars, who is covering to Dr. Levi/Mannie, states Dr Chand is now back in service and will admit Dr Levi's patient 01/03/18 21:[address] Chand regarding patient medical complaint in the Emergency department, will admit patient to his service. pt/family are made aware of her medical results agrees with admission pt currently remained comfortable pt is not actively spitting up saliva/phlegm and/or drooling; pt is not in any distress pt is not in any resp distress vital signs WNL Re-evaluation Time: 21:30 Reassessment Condition: Improving,but remains with symptoms - Critical Care Critical Care Minutes: 45 minutes Critical Care Time: Excluding Proc Time Narrative Critical Care (Text): 01/03/18 22:54 critical care time: 45min, excluding procedure time, excluding time teaching residents/students/mid-level providers; including initial eval/diagnosis, diagnostic interpretation, re-eval, consultations, final disposition - Lab Interpretations Lab Results: 01/03/18 19:20 01/03/18 19:20 Lab Results 01/03/18 21:33: Blood Type Confirm A POSITIVE 01/03/18 21:00: Blood Type A POSITIVE, Antibody Screen Negative, BBK History Checked No verified bt 01/03/18 19:20: pO2 24 L, VBG pH 7.39, VBG pCO2 54.0, VBG HCO3 32.7 H, VBG Total CO2 34.4 H, VBG O2 Sat (Calc) 49.1, VBG Base Excess 6.2 H, VBG Potassium 3.7, Sodium 145.0, Chloride 108.0 H, Glucose 95, Lactate 1.2, FiO2 21.0, Venous Blood Potassium 3.7 01/03/18 19:20: PT 24.8 H, INR 2.14 H, APTT 50.8 H 01/03/18 19:20: Sodium 150 H, Chloride 105, Potassium 3.8, Carbon Dioxide 32, Anion Gap 16, BUN 26 H, Creatinine 0.8, Est GFR ( Amer) > 60, Est GFR ( Non-Af Amer) > 60, Random Glucose 97, Calcium 8.8, Total Bilirubin 0.6, AST 51 H D, ALT 137 H, Alkaline Phosphatase 214 H, Total Protein 7.3, Albumin 3.6, Globulin 3.7, Albumin/Globulin Ratio 1.0 L, Lipase 64 01/03/18 19:20: WBC 6.1 D, RBC 3.47 L, Hgb 10.8 L, Hct 33.4 L, MCV 96.3, MCH 31.1, MCHC 32.3, RDW 16.0 H, Plt Count 274, MPV 9.3, Gran % 62.4, Lymph % (Auto ) 24.8, Clark % (Auto) 7.4 H, Eos % (Auto) 4.4, Baso % (Auto) 1.0, Gran # 3.80, Lymph # (Auto) 1.5, Clark # (Auto) 0.5, Eos # (Auto) 0.3, Baso # (Auto) 0.06 I have reviewed the lab results: Yes Interpretation: Abnormal lab values (elevated INR (therapeutic); elevated NA) - RAD Interpretation Narrative RAD Interpretations (Text): 01/03/18 22:55 prelim results soft tissue neck - abnl structure of mid esophagus just posterior to the epiglottis is noted, no radio-opaque/FB noted cxr - NAD Radiology Orders: 01/03/18 19:08 NECK SOFT TISSUE [RAD] Stat 01/03/18 19:09 CHEST TWO VIEWS (PA/LAT) [RAD] Stat Cultural Centre Manager: ED Physician - EKG Interpretation EKG Interpretation (Text): 01/03/18 22:56 Pacemaker rhythm at 65 bpm, + ectopy, ABNL EKG; unchanged compare with old ekg Interpreted by ED Physician: Yes Type: 12 lead EKG Comparison: Similar to previous EKG - Medication Orders Current Medication Orders: Sodium Chloride (Sodium Chloride 0.9%) 1,000 mls @ 100 mls/hr IV .Q10H PAUL Discontinued Medications Glucagon (Glucagen Diagnostic Kit) 1 mg IV STAT STA Stop: 01/03/18 19:11 Last Admin: 01/03/18 19:24 Dose: 1 mg eMAR Start Stop Document 01/03/18 19:24 EWO (Rec: 01/03/18 19:25 EWO [id number]) Intravenous Solution Start Date 01/03/18 Start Time 19:24 End Date 01/03/18 End time 19:26 Total Infusion Time 2 Sodium Chloride (Sodium Chloride 0.9%) 1,000 mls @ 75 mls/hr IV .[id number] PAUL Last Admin: 01/03/18 19:27 Dose: 75 mls/hr eMAR Start Stop Document 01/03/18 19:27 EWO (Rec: 01/03/18 19:27 EWO [id number]) Intravenous Solution Start Date 01/03/18 Start Time 19:27 - Scribe Statement The provider has reviewed the documentation as recorded by the Mehdi Blake Provider Scribe Attestation: All medical record entries made by the Mehdi were at my direction and personally dictated by me. I have reviewed the chart and agree that the record accurately reflects my personal performance of the history, physical exam, medical decision making, and the department course for this patient. I have also personally directed, reviewed, and agree with the discharge instructions and disposition. Disposition/Present on Arrival - Present on Arrival Any Indicators Present on Arrival: No History of DVT/PE: No History of Uncontrolled Diabetes: No Urinary Catheter: No History of Decub. Ulcer: No History Surgical Site Infection Following: None - Disposition Have Diagnosis and Disposition been Completed?: Yes Diagnosis: Food impaction of esophagus, Hypernatremia Disposition: HOSPITALIZED Disposition Time: 22:00 Patient Plan: Admission, Telemetry Condition: STABLE Print Language: MAORI Referrals: Everette Levi MD [Primary Care Provider] - Follow up with primary
[2018-01-03] MEDS ORDERED: Sodium Chloride 0.9% 1,000 ML IV SCH ×2 (19:15→22:55)
[2018-01-03 19:38] LABS: VENOUS BLOOD GAS BASE EXCESS 6.2 mmol/L (0.0-2.0); VENOUS BLOOD GAS PO2 24 mm/Hg (30-55); VENOUS BLOOD PH 7.39 (7.32-7.43)
[2018-01-03 19:40] LABS: BASO # 0.06 K/mm3 (0.0-2.0); EOS # 0.3 (0.0-0.7); EOS % 4.4 % (1.5-5.0); GRAN # 3.8 (1.4-6.5); GRAN % 62.4 % (50.0-68.0); HEMOGLOBIN 10.8 g/dL (12.0-16.0); LYMPH # 1.5 (1.2-3.4); LYMPH % 24.8 % (22.0-35.0); MEAN CELL VOLUME 96.3 fl (80.0-105.0); MEAN CORPUSCULAR HEMOGLOBIN 31.1 pg (25.0-35.0); MEAN CORPUSCULAR HGB CONC 32.3 g/dl (31.0-37.0); MEAN PLATELET VOLUME 9.3 fl (7.0-11.0); MONO # 0.5 (0.1-0.6); MONO % 7.4 % (1.0-6.0); RBC 3.47 10^6/uL (3.5-6.1); WHITE BLOOD COUNT 6.1 10^3/ul (4.5-11.0)
[2018-01-03 19:49] LABS: INR 2.14 (0.93-1.08); PARTIAL THROMBOPLASTIN TIME 50.8 Seconds (25.1-36.5); PROTHROMBIN TIME 24.8 SECONDS (9.4-12.5)
[2018-01-03 19:50] LABS: ALBUMIN 3.6 g/dL (3.0-4.8); ALT/SGPT 137 U/L (7-56); AST/SGOT 51 U/L (14-36); BLOOD UREA NITROGEN 26 mg/dL (7-21); CALCIUM 8.8 mg/dL (8.4-10.5); GFR AFRICAN-AMERICAN > 60; GFR NON-AFRICAN AMERICAN > 60; LIPASE 64 U/L (23-300)
--- NOTE | 2018-01-04 02:01 | CP.PCM.CON ---
<Waqas Gibbs - Last Filed: 01/04/18 02:42> History of Present Illness - History of Present Illness History of Present Illness: Patient is a 87 F with a PMHx of Kimberly Gutierrez, pacemaker placed in September 2017, UTI treated by Dr. Fournier (Urology) with Ceftin day 3, who presented to us with complaints of chicken stuck in her throat from dinner. Patient admits to small pieces but an inability to completely swallow which began at 6pm. Of note, patient has had similar symptoms over past week, but earlier in the evening expectorated mucus and coughed continuously. Cough has subsided since then per patient. Pt denies fever, chills, SOB, palpitations, CP, changes in appetite, changes in urination or bowel movements. Presently, pt is sitting comfortably next to her daughter in no acute distress without cough. Review of Systems - Review of Systems Review of Systems: 12 point ROS reviewed in HPI except pertinent negatives Past Patient History - Infectious Disease Hx of Infectious Diseases: None - Tetanus Immunizations Tetanus Immunization: Unknown - Past Social History Smoking Status: Never Smoked - CARDIAC Hx Atrial Fibrillation: Yes Hx Hypertension: Yes Hx Pacemaker: Yes Other/Comment: L sided pacemaker - PULMONARY Hx Respiratory Disorders: Yes Hx Pneumonia: Yes - HEENT Hx Difficulty Chewing: Yes - RENAL Other/Comment: uti's - ENDOCRINE/METABOLIC Hx Hypothyroidism: Yes - HEMATOLOGICAL/ONCOLOGICAL Hx Cancer: Yes (r lumpectomy/nose) - INTEGUMENTARY Hx Dermatological Problems: Yes (R heel ulcer) Hx Basil Cell: Yes - MUSCULOSKELETAL/RHEUMATOLOGICAL Hx Arthritis: Yes (knees) - GASTROINTESTINAL Hx Gastrointestinal Disorders: (cholecystectomy) - GENITOURINARY/GYNECOLOGICAL Hx Reproductive Disorders: Yes (hx breast ca) - PSYCHIATRIC Hx Psychophysiologic Disorder: No Hx Substance Use: No - SURGICAL HISTORY Hx Hysterectomy: Yes Hx Mastectomy: No (R Breast Lumpectomy) Hx Orthopedic Surgery: Yes Other/Comment: r ovarian cyst. L pacemaker - ANESTHESIA Hx Anesthesia: Yes Hx Anesthesia Reactions: No Meds Allergies/Adverse Reactions: Allergies Allergy/AdvReac Type Severity Reaction Status Date / Time sulfamethoxazole Allergy RASH Verified 01/03/18 18:56 [From Bactrim] trimethoprim [From Bactrim] Allergy RASH Verified 01/03/18 18:56 - Medications Medications: Current Medications Sodium Chloride (Sodium Chloride 0.9%) 1,000 mls @ 100 mls/hr IV .Q10H PAUL Physical Exam - Constitutional Appears: Well, Non-toxic, No Acute Distress - Head Exam Head Exam: ATRAUMATIC, NORMAL INSPECTION, NORMOCEPHALIC - Eye Exam Eye Exam: EOMI, Normal appearance, PERRL Pupil Exam: NORMAL ACCOMODATION, PERRL - ENT Exam ENT Exam: Mucous Membranes Dry - Neck Exam Neck exam: Positive for: Tenderness. Negative for: Lymphadenopathy Additional comments: Mild - Respiratory Exam Respiratory Exam: Clear to Auscultation Bilateral, NORMAL BREATHING PATTERN. absent: Respiratory Distress, Stridor - Cardiovascular Exam Cardiovascular Exam: Bradycardia, Irregular Rhythm. absent: Gallop, JVD, Rubs Additional comments: HR runs in the low 60s. - GI/Abdominal Exam GI & Abdominal Exam: Normal Bowel Sounds. absent: Guarding, Rebound, Rigid, Tenderness Results - Vital Signs Recent Vital Signs: Last Vital Signs Temp 98.3 F 01/03/18 18:55 Pulse 99 H 01/03/18 23:00 Resp 18 01/03/18 23:00 BP 138/70 01/03/18 23:00 Pulse Ox 100 01/03/18 23:00 - Labs Result Diagrams: 01/03/18 19:20 01/03/18 19:20 Assessment & Plan - Assessment and Plan (Free Text) Assessment: Pt is a 87 F who complains of dysphagia. In ED, Glucagon was given to relax the esophageal muscles. Neck and chest Xray results are pending, but do not reveal obvious signs of impaction. GI was consulted and recommended that the patient be NPO and receive FFP in order to bring down her INR in preparation for her endoscopy scheduled for later today. Pt is hemodynamically stable and is not in respiratory distress and therefore does not meet criteria for ICU admission. Please re-consult as needed. <Eloise Worley - Last Filed: 01/04/18 03:36> Meds - Medications Medications: Current Medications Sodium Chloride (Sodium Chloride 0.9%) 1,000 mls @ 100 mls/hr IV .Q10H PAUL Results - Vital Signs Recent Vital Signs: Last Vital Signs Temp 98.3 F 01/03/18 18:55 Pulse 99 H 01/03/18 23:00 Resp 18 01/03/18 23:00 BP 138/70 01/03/18 23:00 Pulse Ox 100 01/03/18 23:00 - Labs Result Diagrams: 01/03/18 19:20 01/03/18 19:20 Attending/Attestation - Attestation I have personally seen and examined this patient.: Yes I have fully participated in the care of the patient.: Yes I have reviewed all pertinent clinical information: Yes Notes (Text): 01/04/18 03:35 Patient was seen when she was in bed # 6 in the ER. Agree with consult note.
[2018-01-04 04:30] LABS: INR 1.84 (0.93-1.08); PROTHROMBIN TIME 21.2 SECONDS (9.4-12.5)
[2018-01-04 04:52] VITALS: BMI 26.2
[2018-01-04] MEDS ORDERED: Succinylcholine 200 mg/10 ml Inj IV ONE (08:09)
[2018-01-04] MEDS ORDERED: Etomidate 20 mg/10ml Inj IV ONE (08:09)
[2018-01-04] MEDS ORDERED: Sodium Chloride 0.9% 1,000 ML IV SCH (08:15)
[2018-01-04] MEDS ORDERED: Barium Sulfate Susp 2.1% w/v, 2.0% w/w 450 mL Bottle PO ONE (09:34)
--- NOTE | 2018-01-04 09:59 | CP.PCM.HP ---
<Kaden Roy - Last Filed: 01/04/18 10:19> History of Present Illness - History of Present Illness History of Present Illness: H&P Note for Dr. Chand's service - Sami Roy PGY3 HPI: Patient is a 87yo female with past medical history of HTN, CHF, chronic Afib, breast ca, multiple UTIs, bradycardia s/p PPM that presented with c/o dysphagia s/p eating dinner and having difficulty passing a piece of chicken she ate. She reported a similar episode 2 days prior to presentation when she had some food that felt stuck in her esophagus which she reports passed on its own. On this occasion, the patient reported that she has had difficulty swallowing saliva and frequent spitting/coughing. She denied abdominal pain, nausea, vomiting, fever, chills, cough, focal weakness, numbness, tingling, chest pain, palpitations, SOB. 12point ROS as per above otherwise negative PMHx: HTN, CHF, chronic Afib, breast ca, multiple UTIs PSHx: R breast lumpectomy, hysterectomy, pacemaker placement, cholecystectomy Allergies: TMP-SMX Social Hx: Denies tobacco, alcohol and illicit drug use Family Hx: noncontributory Present on Admission - Present on Admission Any Indicators Present on Admission: No Past Patient History - Infectious Disease Hx of Infectious Diseases: None - Tetanus Immunizations Tetanus Immunization: Unknown - Past Social History Smoking Status: Unknown If Ever Smoked - CARDIAC Hx Cardiac Disorders: Yes Hx Cardia Arrhythmia: Yes (A-fib) Hx Hypercholesterolemia: Yes Hx Hypertension: Yes Hx Pacemaker: Yes Hx Peripheral Edema: Yes - PULMONARY Hx Respiratory Disorders: Yes Hx Pneumonia: Yes - NEUROLOGICAL Hx Neurological Disorder: Yes Hx Dizziness: Yes (vertigo) - HEENT Hx HEENT Problems: Yes Hx Difficulty Chewing: Yes Other/Comment: HX right retinal bleeding, blurry vision - RENAL Hx Chronic Kidney Disease: Yes - ENDOCRINE/METABOLIC Hx Endocrine Disorders: Yes Hx Hypothyroidism: Yes - HEMATOLOGICAL/ONCOLOGICAL Hx Blood Transfusions: Yes Hx Blood Transfusion Reaction: No - INTEGUMENTARY Hx Dermatological Problems: Yes (R heel ulcer) Hx Basil Cell: Yes - MUSCULOSKELETAL/RHEUMATOLOGICAL Hx Musculoskeletal Disorders: Yes Hx Arthritis: Yes (knees) Hx Falls: Yes Hx Osteoarthritis: Yes Hx Osteomyelitis: Yes Hx Osteoporosis: Yes - GASTROINTESTINAL Hx Gastrointestinal Disorders: Yes (cholecystectomy) Hx Gall Bladder Disease: Yes - GENITOURINARY/GYNECOLOGICAL Hx Genitourinary Disorders: Yes Hx Incontinence: Yes Hx Urinary Tract Infection: Yes - PSYCHIATRIC Hx Psychophysiologic Disorder: Yes Hx Anxiety: Yes Hx Substance Use: No - SURGICAL HISTORY Hx Surgeries: Yes - ANESTHESIA Hx Anesthesia Reactions: No Hx Malignant Hyperthermia: No Meds Allergies/Adverse Reactions: Allergies Allergy/AdvReac Type Severity Reaction Status Date / Time sulfamethoxazole Allergy RASH Verified 01/03/18 18:56 [From Bactrim] trimethoprim [From Bactrim] Allergy RASH Verified 01/03/18 18:56 Physical Exam - Constitutional Appears: No Acute Distress - Head Exam Head Exam: ATRAUMATIC, NORMAL INSPECTION, NORMOCEPHALIC - Eye Exam Eye Exam: EOMI Pupil Exam: PERRL - ENT Exam ENT Exam: Mucous Membranes Moist - Neck Exam Neck exam: Positive for: Normal Inspection - Respiratory Exam Respiratory Exam: Decreased Breath Sounds. absent: Rales, Rhonchi, Wheezes - Cardiovascular Exam Cardiovascular Exam: +S1, +S2. absent: Gallop, Rubs - GI/Abdominal Exam GI & Abdominal Exam: Soft. absent: Distended, Firm, Guarding, Rebound, Rigid, Tenderness - Neurological Exam Neurological exam: Alert, CN II-XII Intact, Oriented x3 - Psychiatric Exam Psychiatric exam: Normal Affect, Normal Mood - Skin Skin Exam: Dry, Intact, Normal Color, Warm Results - Vital Signs Recent Vital Signs: Last Vital Signs Temp 97.8 F 01/04/18 08:42 Pulse 60 01/04/18 08:42 Resp 17 01/04/18 08:42 BP 147/66 01/04/18 08:42 Pulse Ox 98 01/04/18 08:42 - Labs Result Diagrams: 01/03/18 19:20 01/04/18 09:45 Labs: Laboratory Results - last 24 hr 01/04/18 03:00 PT 21.2 H INR 1.84 H Assessment & Plan - Assessment and Plan (Free Text) Plan: 87yo female with history of HTN, CHF, chronic Afib, breast ca, multiple UTIs, bradycardia s/p PPM presents with dysphagia s/p food impaction 1. Food impaction 2. Transaminitis 3. Hypertension 4. Hx of CHF 5. Chronic atrial fibrillation 6. Hx of Breast Ca 7. Hx of multiple UTI's 8. Bradycardia s/p PPM 9. Anemia -Patient underwent EGD this morning with GI, Dr. Niño; Endoscopy report revealed no evidence of food impaction, gastric polyps, refer to full report -CT abd/pelvis has been ordered by GI and is pending at this time -The patient is on digoxin and coumadin for atrial fibrillation, multivitamin and stool softeners; She has been started on D5W @125cc/hr for hydration -She reports improvement of her symptoms and will be watched post procedure Patient seen and case discussed/reviewed with attending, Dr. Chand <Jasson Chand S - Last Filed: 01/04/18 16:43> Results - Vital Signs Recent Vital Signs: Last Vital Signs Temp 97.5 F L 01/04/18 12:00 Pulse 60 01/04/18 14:00 Resp 18 01/04/18 12:00 BP 133/61 01/04/18 12:00 Pulse Ox 98 01/04/18 08:42 - Labs Result Diagrams: 01/03/18 19:20 01/04/18 09:45 Labs: Laboratory Results - last 24 hr 01/04/18 01/04/18 03:00 09:45 PT 21.2 H INR 1.84 H Sodium 148 Potassium 3.5 L Chloride 108 H Carbon Dioxide 32 Anion Gap 13 BUN 24 H Creatinine 0.6 L Est GFR ( Amer) > 60 Est GFR (Non-Af Amer) > 60 Random Glucose 82 Calcium 8.5 Total Bilirubin 0.6 AST 32 ALT 98 H Alkaline Phosphatase 178 H Total Protein 6.6 Albumin 3.2 Globulin 3.4 Albumin/Globulin Ratio 0.9 L Assessment & Plan - Assessment and Plan (Free Text) Plan: Pt seen and examined. Agree with the note of the emergency medical dispatcher. Labs and medications have been reviewed. Spoke to Dr Bob and no foreign body was found. Pt on IVF for hypernatremia. There is a hx of an abnormality of the pancreas. Will most likely need CP with pancreas protocol. She has Dementia- Alzh and is at risk of delerium.
[2018-01-04 10:11] LABS: ALB/GLOB RATIO 0.9 (1.1-1.8); ALBUMIN 3.2 g/dL (3.0-4.8); ALT/SGPT 98 U/L (7-56); AST/SGOT 32 U/L (14-36); BLOOD UREA NITROGEN 24 mg/dL (7-21); CALCIUM 8.5 mg/dL (8.4-10.5); GFR AFRICAN-AMERICAN > 60; GFR NON-AFRICAN AMERICAN > 60
[2018-01-04] MEDS ORDERED: Potassium Chloride 40 mEq/30 ml LIQ UD PO ONE (10:26)
--- NOTE | 2018-01-04 11:15 | RAD ---
HISTORY: coughing/esophageal food impaction COMPARISON: 10/24/2017 TECHNIQUE: Chest PA and lateral FINDINGS: LUNGS: Retrocardiac consolidative changes are improved compared to the prior study. PLEURA: Decrease in left pleural effusion. CARDIOVASCULAR: Cardiomegaly without CHF. Position/ configuration of pacemaker device: Satisfactory. OSSEOUS STRUCTURES: No significant abnormalities. VISUALIZED UPPER ABDOMEN: Normal. OTHER FINDINGS: None. IMPRESSION: Interval improvement and left pleural effusion and improved aeration left lower lobe. No visulaized radiopaque/visualized foreign body.
--- NOTE | 2018-01-04 11:15 | RAD ---
PROCEDURE: Radiographs of the neck (soft tissue). HISTORY: esophageal food impaction COMPARISON: None. TECHNIQUE: Frontal and Lateral Radiographs of the neck, optimized for soft tissue visualization. FINDINGS: SOFT TISSUES: Unremarkable. No radiopaque foreign body seen. CERVICAL SPINE: Multilevel degenerative changes. OTHER FINDINGS: None. IMPRESSION: No visulaized radiopaque/visualized foreign body.
--- NOTE | 2018-01-04 15:00 | CT ---
PROCEDURE: CT Abdomen and Pelvis with contrast HISTORY: ABNORMAL LFTS COMPARISON: 10/26/2017 TECHNIQUE: Oral contrast only. Radiation dose: Total exam DLP = 632.56 mGy-cm. This CT exam was performed using one or more of the following dose reduction techniques: Automated exposure control, adjustment of the mA and/or kV according to patient size, and/or use of iterative reconstruction technique. FINDINGS: LOWER THORAX: Bilateral pleural effusions and underlying compressive atelectasis smaller compared to the previous study. LIVER: Unremarkable. No gross lesion or ductal dilatation. GALLBLADDER AND BILE DUCTS: Status post cholecystectomy. No abnormality is seen in the gallbladder fossa. PANCREAS: Atrophic pancreas without focal or diffuse SPLEEN: Abnormality ADRENALS: Unremarkable. No mass. KIDNEYS AND URETERS: Unremarkable. No hydronephrosis. No solid mass. VASCULATURE: Unremarkable. No aortic aneurysm. BOWEL: Constipation without fecal impaction or obstruction. Diverticulosis without an acute inflammatory component or other associated pathologic process. APPENDIX: Normal appendix. PERITONEUM: Unremarkable. No free fluid. No free air. LYMPH NODES: Unremarkable. No enlarged lymph nodes. BLADDER: Unremarkable. REPRODUCTIVE: Prior hysterectomy BONES: No acute fracture. OTHER FINDINGS: Presacral area of focal fatty infiltration unchanged compared to the prior study. IMPRESSION: No acute findings related to/accounting for the clinical presentation. Additional benign and/or incidental findings described above. No significant interval change compared to the prior examination(s).
[2018-01-04] MEDS: Docusate-Senna 50 mg-8.6 mg Tab PO SCH (17:22)
--- NOTE | 2018-01-04 17:23 | CARD ---
APPROVED REPORT EKG Measurement Heart [id number] <Conclusion> Demand pacemaker, interpretation is based on intrinsic rhythm Atrial fibrillation with premature ventricular or aberrantly conducted complexes Minimal voltage criteria for LVH, may be normal variant Cannot rule out Inferior infarct, age undetermined ST & T wave abnormality, consider anterolateral ischemia or digitalis effect Abnormal ECG
[2018-01-05 06:11] VITALS: O2SAT 94
--- NOTE | 2018-01-05 07:05 | CP.PCM.PN ---
Subjective - Date & Time of Evaluation Date of Evaluation: 01/05/18 Time of Evaluation: 07:00 - Subjective Subjective: Medicine progress note for Dr. Chand's service - Sami Roy PGY3 Patient seen and examined at bedside this morning. No acute overnight events or new complaints were reported. She is s/p EGD yesterday which revealed no food impaction at that time, gastric polyps (see full report). She states that she is feeling better and has been tolerating diet without issue. Denies chest pain , palpitations, SOB. Objective - Vital Signs/Intake and Output Vital Signs (last 24 hours): Temp Pulse Resp BP Pulse Ox 98.1 F 60 20 158/76 H 94 L 01/05/18 06:00 01/05/18 06:00 01/05/18 06:00 01/05/18 06:00 01/05/18 06:00 Intake and Output: 01/05/18 01/05/18 06:59 18:59 Intake Total 1625 Balance 1625 - Medications Medications: Current Medications Digoxin (Lanoxin) 0.25 mg PO QOTHERDAY [facility] Dextrose (Dextrose 5% In Water 1000 Ml) 1,000 mls @ 125 mls/hr IV .Q8H [facility] Stop: 01/05/18 09:14 Last Admin: 01/05/18 05:42 Dose: 125 mls/hr Multivitamins/Minerals (Therapeutic-M Tab) 1 tab PO DAILY [facility] Senna/Docusate Sodium (Senokot S 50 Mg-8.6 Mg) 1 tab PO BID [facility] Last Admin: 01/04/18 17:22 Dose: Not Given Warfarin Sodium (Coumadin) 2 mg PO 1800 [facility] PRN Reason: Protocol Last Admin: 01/04/18 17:21 Dose: 2 mg - Labs Labs: 01/04/18 09:45 PT 21.2 SECONDS (9.4-12.5) H 01/04/18 03:00 INR 1.84 (0.93-1.08) H 01/04/18 03:00 APTT 50.8 Seconds (25.1-36.5) H 01/03/18 19:20 - Constitutional Appears: No Acute Distress - Head Exam Head Exam: ATRAUMATIC, NORMAL INSPECTION, NORMOCEPHALIC - Eye Exam Eye Exam: EOMI Pupil Exam: PERRL - ENT Exam ENT Exam: Mucous Membranes Moist - Respiratory Exam Respiratory Exam: Clear to Ausculation Bilateral. absent: Rales, Rhonchi, Wheezes - Cardiovascular Exam Cardiovascular Exam: +S1, +S2. absent: Gallop, Rubs - GI/Abdominal Exam GI & Abdominal Exam: Soft. absent: Distended, Firm, Guarding, Rigid, Tenderness , Rebound - Extremities Exam Extremities Exam: Normal Inspection. absent: Pedal Edema - Neurological Exam Neurological Exam: Alert, Awake, Oriented x3 - Psychiatric Exam Psychiatric exam: Normal Affect, Normal Mood - Skin Skin Exam: Dry, Intact, Normal Color, Warm Assessment and Plan - Assessment and Plan (Free Text) Plan: 87yo female with history of HTN, CHF, chronic Afib, breast ca, multiple UTIs, bradycardia s/p PPM presents with dysphagia s/p food impaction 1. Food impaction 2. Transaminitis 3. Hypertension 4. Hx of CHF 5. Chronic atrial fibrillation 6. Hx of Breast Ca 7. Hx of multiple UTI's 8. Bradycardia s/p PPM 9. Anemia -The patient is on digoxin and coumadin for atrial fibrillation, multivitamin and stool softeners -Continue with D5W @125cc/hr for hypernatremia which appears to be resolved -Underwent EGD by GI, Dr. Niño; Endoscopy report revealed no evidence of food impaction, gastric polyps, refer to full report -CT abd/pelvis revealed no acute abnormalities; see full report Patient seen and case discussed/reviewed with attending, Dr. Chand
[2018-01-05 07:50] LABS: BASO # 0.03 K/mm3 (0.0-2.0); BASO % 0.4 % (0.0-3.0); EOS # 0.2 (0.0-0.7); EOS % 2.1 % (1.5-5.0); GRAN # 5.78 (1.4-6.5); GRAN % 71.3 % (50.0-68.0); HEMOGLOBIN 10.3 g/dL (12.0-16.0); LYMPH # 1.6 (1.2-3.4); LYMPH % 20.2 % (22.0-35.0); MEAN CELL VOLUME 94.9 fl (80.0-105.0); MEAN CORPUSCULAR HEMOGLOBIN 30.8 pg (25.0-35.0); MEAN CORPUSCULAR HGB CONC 32.5 g/dl (31.0-37.0); MEAN PLATELET VOLUME 9.3 fl (7.0-11.0); MONO # 0.5 (0.1-0.6); RBC 3.34 10^6/uL (3.5-6.1); RED CELL DISTRIBUTION WIDTH 15.7 % (11.5-14.5); WHITE BLOOD COUNT 8.1 10^3/ul (4.5-11.0)
[2018-01-05 08:05] LABS: ALB/GLOB RATIO 0.9 (1.1-1.8); ALBUMIN 3.4 g/dL (3.0-4.8); ALT/SGPT 86 U/L (7-56); AST/SGOT 34 U/L (14-36); BLOOD UREA NITROGEN 15 mg/dL (7-21); CALCIUM 8.7 mg/dL (8.4-10.5); GFR AFRICAN-AMERICAN > 60; GFR NON-AFRICAN AMERICAN > 60
[2018-01-05 08:07] LABS: PROTHROMBIN TIME 18.5 SECONDS (9.4-12.5)
[2018-01-05 08:08] LABS: INR 1.59 (0.93-1.08)
[2018-01-05] MEDS ORDERED: Multivitamin With Minerals Tab PO SCH (10:00)
[2018-01-05] MEDS: Docusate-Senna 50 mg-8.6 mg Tab PO SCH (10:02)
--- NOTE | 2018-01-05 11:01 | CP.PCM.DIS ---
<Kaden Roy - Last Filed: 01/05/18 10:57> Provider - Provider Date of Admission: 01/03/18 22:06 Attending physician: Jasson Chand MD Primary care physician: Everette Levi MD Consults: RAFAELA Niño Time Spent in preparation of Discharge (in minutes): 30 Hospital Course - Lab Results Lab Results: Most Recent Lab Values WBC 8.1 10^3/ul (4.5-11.0) D 01/05/18 07:30 RBC 3.34 10^6/uL (3.5-6.1) L 01/05/18 07:30 Hgb 10.3 g/dL (12.0-16.0) L 01/05/18 07:30 Hct 31.7 % (36.0-48.0) L 01/05/18 07:30 MCV 94.9 fl (80.0-105.0) 01/05/18 07:30 MCH 30.8 pg (25.0-35.0) 01/05/18 07:30 MCHC 32.5 g/dl (31.0-37.0) 01/05/18 07:30 RDW 15.7 % (11.5-14.5) H 01/05/18 07:30 Plt Count 264 10^3/uL (120.0-450.0) 01/05/18 07:30 MPV 9.3 fl (7.0-11.0) 01/05/18 07:30 Gran % 71.3 % (50.0-68.0) H 01/05/18 07:30 Lymph % (Auto) 20.2 % (22.0-35.0) L 01/05/18 07:30 Haines % (Auto) 6.0 % (1.0-6.0) 01/05/18 07:30 Eos % (Auto) 2.1 % (1.5-5.0) 01/05/18 07:30 Baso % (Auto) 0.4 % (0.0-3.0) 01/05/18 07:30 Gran # 5.78 (1.4-6.5) 01/05/18 07:30 Lymph # (Auto) 1.6 (1.2-3.4) 01/05/18 07:30 Haines # (Auto) 0.5 (0.1-0.6) 01/05/18 07:30 Eos # (Auto) 0.2 (0.0-0.7) 01/05/18 07:30 Baso # (Auto) 0.03 K/mm3 (0.0-2.0) 01/05/18 07:30 PT 18.5 SECONDS (9.4-12.5) H 01/05/18 07:30 INR 1.59 (0.93-1.08) H 01/05/18 07:30 APTT 50.8 Seconds (25.1-36.5) H 01/03/18 19:20 pO2 24 mm/Hg (30-55) L 01/03/18 19:20 VBG pH 7.39 (7.32-7.43) 01/03/18 19:20 VBG pCO2 54.0 (40-60) 01/03/18 19:20 VBG HCO3 32.7 mmol/l (21-28) H 01/03/18 19:20 VBG Total CO2 34.4 mmol.L (22-28) H 01/03/18 19:20 VBG O2 Sat (Calc) 49.1 % (40-65) 01/03/18 19:20 VBG Base Excess 6.2 mmol/L (0.0-2.0) H 01/03/18 19:20 VBG Potassium 3.7 mmol/L (3.6-5.2) 01/03/18 19:20 Sodium 145.0 mmol/L (132-148) 01/03/18 19:20 Chloride 108.0 mmol/L (98-107) H 01/03/18 19:20 Glucose 95 mg/dl (65-105) 01/03/18 19:20 Lactate 1.2 mmol/L (0.7-2.1) 01/03/18 19:20 FiO2 21.0 % 01/03/18 19:20 Sodium 143 mmol/L (132-148) 01/05/18 07:30 Potassium 4.4 mmol/L (3.6-5.0) 01/05/18 07:30 Chloride 106 mmol/L (98-107) 01/05/18 07:30 Carbon Dioxide 28 mmol/L (21-33) 01/05/18 07:30 Anion Gap 14 (10-20) 01/05/18 07:30 BUN 15 mg/dL (7-21) 01/05/18 07:30 Creatinine 0.6 mg/dl (0.7-1.2) L 01/05/18 07:30 Est GFR ( Amer) > 60 01/05/18 07:30 Est GFR (Non-Af Amer) > 60 01/05/18 07:30 Random Glucose 106 mg/dL (70-110) 01/05/18 07:30 Calcium 8.7 mg/dL (8.4-10.5) 01/05/18 07:30 Phosphorus 3.2 mg/dL (2.5-4.5) 01/05/18 07:30 Magnesium 2.2 mg/dL (1.7-2.2) 01/05/18 07:30 Total Bilirubin 0.8 mg/dL (0.2-1.3) 01/05/18 07:30 AST 34 U/L (14-36) 01/05/18 07:30 ALT 86 U/L (7-56) H 01/05/18 07:30 Alkaline Phosphatase 192 U/L (38-126) H 01/05/18 07:30 Total Protein 7.1 g/dL (5.8-8.3) 01/05/18 07:30 Albumin 3.4 g/dL (3.0-4.8) 01/05/18 07:30 Globulin 3.7 gm/dL 01/05/18 07:30 Albumin/Globulin Ratio 0.9 (1.1-1.8) L 01/05/18 07:30 Lipase 64 U/L (23-300) 01/03/18 19:20 Venous Blood Potassium 3.7 mmol/L (3.6-5.2) 01/03/18 19:20 Blood Type A POSITIVE 01/03/18 21:00 Blood Type Confirm A POSITIVE 01/03/18 21:33 Antibody Screen Negative 01/03/18 21:00 BBK History Checked No verified bt 01/03/18 21:00 - Hospital Course Hospital Course: Patient is a 87yo female with past medical history of HTN, CHF, chronic Afib on coumadin, breast ca, multiple UTIs, bradycardia s/p PPM that presented with c/o dysphagia s/p eating dinner due to difficulty passing a piece of chicken she ate. She reported a similar episode 2 days prior to presentation when she had some food that felt stuck in her esophagus which passed on its own. On this occasion, the patient reported that she has had difficulty swallowing saliva and frequent spitting/coughing. GI was consulted for evaluation and an EGD was performed which revealed no evidence of food impaction, gastric polyps that was biopsied. She was also treated for hypernatremia with IVF hydration which resolved. A CT abd/pelvis was obtained which revealed no acute abnormalities. She reported improvement of her symptoms post EGD and tolerated diet without issue. Her medications were restarted and she was subsequently agreeable to discharge home. She was instructed to follow up with her PMD and eat small bite- sized meals. Discharge Exam - Head Exam Head Exam: ATRAUMATIC, NORMAL INSPECTION, NORMOCEPHALIC - Eye Exam Eye Exam: EOMI Pupil Exam: PERRL - Respiratory Exam Respiratory Exam: Rales. absent: Rhonchi, Wheezes - Cardiovascular Exam Cardiovascular Exam: Irregular Rhythm, +S1, +S2. absent: Gallop, Rubs - GI/Abdominal Exam GI & Abdominal Exam: Soft. absent: Distended, Firm, Guarding, Rebound, Rigid, Tenderness - Neurological Exam Neurological exam: Alert, CN II-XII Intact, Oriented x3 - Psychiatric Exam Psychiatric exam: Normal Affect, Normal Mood - Skin Skin Exam: Dry, Intact, Normal Color, Warm Discharge Plan - Follow Up Plan Condition: STABLE Disposition: HOME/ ROUTINE Instructions: Foreign Body, Swallowed, Adult (DC) Referrals: Everette Levi MD [Primary Care Provider] - Follow up with primary <Jasson Chand - Last Filed: 01/06/18 10:48> Provider - Provider Date of Admission: 01/03/18 22:06 Attending physician: Jasson Chand MD Primary care physician: Everette Levi MD Hospital Course - Lab Results Lab Results: Most Recent Lab Values WBC 8.1 10^3/ul (4.5-11.0) D 01/05/18 07:30 RBC 3.34 10^6/uL (3.5-6.1) L 01/05/18 07:30 Hgb 10.3 g/dL (12.0-16.0) L 01/05/18 07:30 Hct 31.7 % (36.0-48.0) L 01/05/18 07:30 MCV 94.9 fl (80.0-105.0) 01/05/18 07:30 MCH 30.8 pg (25.0-35.0) 01/05/18 07:30 MCHC 32.5 g/dl (31.0-37.0) 01/05/18 07:30 RDW 15.7 % (11.5-14.5) H 01/05/18 07:30 Plt Count 264 10^3/uL (120.0-450.0) 01/05/18 07:30 MPV 9.3 fl (7.0-11.0) 01/05/18 07:30 Gran % 71.3 % (50.0-68.0) H 01/05/18 07:30 Lymph % (Auto) 20.2 % (22.0-35.0) L 01/05/18 07:30 Haines % (Auto) 6.0 % (1.0-6.0) 01/05/18 07:30 Eos % (Auto) 2.1 % (1.5-5.0) 01/05/18 07:30 Baso % (Auto) 0.4 % (0.0-3.0) 01/05/18 07:30 Gran # 5.78 (1.4-6.5) 01/05/18 07:30 Lymph # (Auto) 1.6 (1.2-3.4) 01/05/18 07:30 Haines # (Auto) 0.5 (0.1-0.6) 01/05/18 07:30 Eos # (Auto) 0.2 (0.0-0.7) 01/05/18 07:30 Baso # (Auto) 0.03 K/mm3 (0.0-2.0) 01/05/18 07:30 PT 18.5 SECONDS (9.4-12.5) H 01/05/18 07:30 INR 1.59 (0.93-1.08) H 01/05/18 07:30 APTT 50.8 Seconds (25.1-36.5) H 01/03/18 19:20 pO2 24 mm/Hg (30-55) L 01/03/18 19:20 VBG pH 7.39 (7.32-7.43) 01/03/18 19:20 VBG pCO2 54.0 (40-60) 01/03/18 19:20 VBG HCO3 32.7 mmol/l (21-28) H 01/03/18 19:20 VBG Total CO2 34.4 mmol.L (22-28) H 01/03/18 19:20 VBG O2 Sat (Calc) 49.1 % (40-65) 01/03/18 19:20 VBG Base Excess 6.2 mmol/L (0.0-2.0) H 01/03/18 19:20 VBG Potassium 3.7 mmol/L (3.6-5.2) 01/03/18 19:20 Sodium 145.0 mmol/L (132-148) 01/03/18 19:20 Chloride 108.0 mmol/L (98-107) H 01/03/18 19:20 Glucose 95 mg/dl (65-105) 01/03/18 19:20 Lactate 1.2 mmol/L (0.7-2.1) 01/03/18 19:20 FiO2 21.0 % 01/03/18 19:20 Sodium 143 mmol/L (132-148) 01/05/18 07:30 Potassium 4.4 mmol/L (3.6-5.0) 01/05/18 07:30 Chloride 106 mmol/L (98-107) 01/05/18 07:30 Carbon Dioxide 28 mmol/L (21-33) 01/05/18 07:30 Anion Gap 14 (10-20) 01/05/18 07:30 BUN 15 mg/dL (7-21) 01/05/18 07:30 Creatinine 0.6 mg/dl (0.7-1.2) L 01/05/18 07:30 Est GFR ( Amer) > 60 01/05/18 07:30 Est GFR (Non-Af Amer) > 60 01/05/18 07:30 Random Glucose 106 mg/dL (70-110) 01/05/18 07:30 Calcium 8.7 mg/dL (8.4-10.5) 01/05/18 07:30 Phosphorus 3.2 mg/dL (2.5-4.5) 01/05/18 07:30 Magnesium 2.2 mg/dL (1.7-2.2) 01/05/18 07:30 Total Bilirubin 0.8 mg/dL (0.2-1.3) 01/05/18 07:30 AST 34 U/L (14-36) 01/05/18 07:30 ALT 86 U/L (7-56) H 01/05/18 07:30 Alkaline Phosphatase 192 U/L (38-126) H 01/05/18 07:30 Total Protein 7.1 g/dL (5.8-8.3) 01/05/18 07:30 Albumin 3.4 g/dL (3.0-4.8) 01/05/18 07:30 Globulin 3.7 gm/dL 01/05/18 07:30 Albumin/Globulin Ratio 0.9 (1.1-1.8) L 01/05/18 07:30 Lipase 64 U/L (23-300) 01/03/18 19:20 Venous Blood Potassium 3.7 mmol/L (3.6-5.2) 01/03/18 19:20 Blood Type A POSITIVE 01/03/18 21:00 Blood Type Confirm A POSITIVE 01/03/18 21:33 Antibody Screen Negative 01/03/18 21:00 BBK History Checked No verified bt 01/03/18 21:00 - Hospital Course Hospital Course: Pt seen and examined yesterday. The labs and medications have been reviewed. Spoke to Natalya (daughter) to give update. She is alert and awake. Able to tolerate her diet. Spoke to GI about case. CT of abd reviewed and pancreas looks ok. On Coumadin for A fib.
[2018-01-05 12:58] VITALS: BP 112/60; PULSE 62; RESP 17; TEMP 98
--- NOTE | 2018-01-05 13:38 | CP.PCM.CON ---
History of Present Illness - History of Present Illness History of Present Illness: PGY6 GI Fellow Consult Note - LATE ENTRY Patient is an 87yo female with PMHx significant for atrial fibrillation on Coumadin, CHF with preserved EF, breast cancer s/p lumpectomy, HTN who presented to the ED with dysphagia. Patient admitted to eating chicken and subsequent feeling that food became stuck in her throat. Despite liquid oral intake, food remained stuck. Had similar symptoms prior to this episode over the last week but was able to cough/regurgitate to alleviate symptoms. On admission, an endoscopy was performed which revealed changes c/w Dockery's esophagus as well as a cardia/GE junction lesion which was biopsied. She was advanced to a pureed diet and has tolerated this without issue. Presently, patient is feeling well. 12 system ROS performed and negative except where stated PMHx: See HPI PSHx: Pacemaker, Right breast lumpectomy, Hysterectomy, Cholecystectomy FHx: Noncontributory Social: No prior tobacco, EtOH or illicit drug use Endo: As described above Past Patient History - Infectious Disease Hx of Infectious Diseases: None - Tetanus Immunizations Tetanus Immunization: Unknown - Past Social History Smoking Status: Unknown If Ever Smoked - CARDIAC Hx Cardiac Disorders: Yes Hx Cardia Arrhythmia: Yes (A-fib) Hx Hypercholesterolemia: Yes Hx Hypertension: Yes Hx Pacemaker: Yes Hx Peripheral Edema: Yes - PULMONARY Hx Respiratory Disorders: Yes Hx Pneumonia: Yes - NEUROLOGICAL Hx Neurological Disorder: Yes Hx Dizziness: Yes (vertigo) - HEENT Hx HEENT Problems: Yes Hx Difficulty Chewing: Yes Other/Comment: HX right retinal bleeding, blurry vision - RENAL Hx Chronic Kidney Disease: Yes - ENDOCRINE/METABOLIC Hx Endocrine Disorders: Yes Hx Hypothyroidism: Yes - HEMATOLOGICAL/ONCOLOGICAL Hx Blood Transfusions: Yes Hx Blood Transfusion Reaction: No - INTEGUMENTARY Hx Dermatological Problems: Yes (R heel ulcer) Hx Basil Cell: Yes - MUSCULOSKELETAL/RHEUMATOLOGICAL Hx Musculoskeletal Disorders: Yes Hx Arthritis: Yes (knees) Hx Falls: Yes Hx Osteoarthritis: Yes Hx Osteomyelitis: Yes Hx Osteoporosis: Yes - GASTROINTESTINAL Hx Gastrointestinal Disorders: Yes (cholecystectomy) Hx Gall Bladder Disease: Yes - GENITOURINARY/GYNECOLOGICAL Hx Genitourinary Disorders: Yes Hx Incontinence: Yes Hx Urinary Tract Infection: Yes - PSYCHIATRIC Hx Psychophysiologic Disorder: Yes Hx Anxiety: Yes Hx Substance Use: No - SURGICAL HISTORY Hx Surgeries: Yes - ANESTHESIA Hx Anesthesia Reactions: No Hx Malignant Hyperthermia: No Meds Allergies/Adverse Reactions: Allergies Allergy/AdvReac Type Severity Reaction Status Date / Time sulfamethoxazole Allergy RASH Verified 01/03/18 18:56 [From Bactrim] trimethoprim [From Bactrim] Allergy RASH Verified 01/03/18 18:56 - Medications Medications: Current Medications Digoxin (Lanoxin) 0.25 mg PO QOTHERDAY [facility] Multivitamins/Minerals (Therapeutic-M Tab) 1 tab PO DAILY [facility] Last Admin: 01/05/18 10:02 Dose: 1 tab Senna/Docusate Sodium (Senokot S 50 Mg-8.6 Mg) 1 tab PO BID [facility] Last Admin: 01/05/18 10:02 Dose: 1 tab Warfarin Sodium (Coumadin) 2 mg PO 1800 [facility] PRN Reason: Protocol Last Admin: 01/04/18 17:21 Dose: 2 mg Physical Exam - Constitutional Appears: Non-toxic, No Acute Distress - Eye Exam Eye Exam: EOMI, PERRL - ENT Exam ENT Exam: Mucous Membranes Moist - Respiratory Exam Respiratory Exam: Clear to Auscultation Bilateral. absent: Rales, Rhonchi, Wheezes - Cardiovascular Exam Cardiovascular Exam: Irregular Rhythm, +S1, +S2 Additional comments: regular rate - GI/Abdominal Exam GI & Abdominal Exam: Normal Bowel Sounds, Soft. absent: Distended, Firm, Guarding, Organomegaly, Rigid, Tenderness - Extremities Exam Additional comments: B/L LE edema noted - Neurological Exam Neurological exam: Alert, Oriented x3 - Psychiatric Exam Psychiatric exam: Normal Affect, Normal Mood - Skin Skin Exam: Dry, Warm Results - Vital Signs Recent Vital Signs: Last Vital Signs Temp 98.0 F 01/05/18 12:00 Pulse 62 01/05/18 12:00 Resp 17 01/05/18 12:00 BP 112/60 01/05/18 12:00 Pulse Ox 94 L 01/05/18 06:00 - Labs Result Diagrams: 01/05/18 07:30 01/05/18 07:30 Labs: Laboratory Results - last 24 hr 01/05/18 01/05/18 01/05/18 07:30 07:30 07:30 WBC 8.1 D RBC 3.34 L Hgb 10.3 L Hct 31.7 L MCV 94.9 MCH 30.8 MCHC 32.5 RDW 15.7 H Plt Count 264 MPV 9.3 Gran % 71.3 H Lymph % (Auto) 20.2 L [place] % (Auto) 6.0 Eos % (Auto) 2.1 Baso % (Auto) 0.4 Gran # 5.78 Lymph # (Auto) 1.6 [place] # (Auto) 0.5 Eos # (Auto) 0.2 Baso # (Auto) 0.03 PT 18.5 H INR 1.59 H Sodium 143 Potassium 4.4 Chloride 106 Carbon Dioxide 28 Anion Gap 14 BUN 15 Creatinine 0.6 L Est GFR ( Amer) > 60 Est GFR (Non-Af Amer) > 60 Random Glucose 106 Calcium 8.7 Phosphorus Magnesium Total Bilirubin 0.8 AST 34 ALT 86 H Alkaline Phosphatase 192 H Total Protein 7.1 Albumin 3.4 Globulin 3.7 Albumin/Globulin Ratio 0.9 L 01/05/18 07:30 WBC RBC Hgb Hct MCV MCH MCHC RDW Plt Count MPV Gran % Lymph % (Auto) [place] % (Auto) Eos % (Auto) Baso % (Auto) Gran # Lymph # (Auto) [place] # (Auto) Eos # (Auto) Baso # (Auto) PT INR Sodium Potassium Chloride Carbon Dioxide Anion Gap BUN Creatinine Est GFR ( Amer) Est GFR (Non-Af Amer) Random Glucose Calcium Phosphorus 3.2 Magnesium 2.2 Total Bilirubin AST ALT Alkaline Phosphatase Total Protein Albumin Globulin Albumin/Globulin Ratio Assessment & Plan - Assessment and Plan (Free Text) Assessment: Patient is an 87yo female with PMHx significant for atrial fibrillation on Coumadin, CHF with preserved EF, breast cancer s/p lumpectomy, HTN who presented to the ED with dysphagia -Solid food dysphagia -Atrial fibrillation on Coumadin Plan: -S/P endoscopic evaluation without overt esphageal lesion to account for dysphagia -No food bolus appreciated -Tolerating pureed diet - would continue this for now -Recommend outpatient follow up - awaiting path results -May benefit from GI motility evaluation to rule out underlying achalasia - Date & Time Date: 01/05/18 Time: 08:45
[2018-01-06] MEDS ORDERED: Digoxin 250 mcg (0.25 mg) Tab PO SCH (10:00)
== END 2018-01-05 17:51 | disposition home or self-care (01) | DRG 381 ==
LOC: ED 18:44 → ERH 22:06 → 2RNO 23:17
PROVIDERS: ADMIT Internal Medicine Nephrology; ATTEND Internal Medicine Nephrology
PROC: 30233K1 Transfusion of Nonautologous Frozen Plasma into Peripheral Vein, Percutaneous Approach (ICD-10-PCS; 2018-01-04)
PROC: 0DB68ZZ Excision of Stomach, Via Natural or Artificial Opening Endoscopic (ICD-10-PCS; principal; 2018-01-04 07:30)
DX: K22.70 Barrett's esophagus without dysplasia (principal); R13.10 Dysphagia, unspecified; E87.0 Hyperosmolality and hypernatremia; I50.30 Unspecified diastolic (congestive) heart failure; I11.0 Hypertensive heart disease with heart failure; K31.7 Polyp of stomach and duodenum; I48.2 Chronic atrial fibrillation; E78.00 Pure hypercholesterolemia, unspecified; Z85.3 Personal history of malignant neoplasm of breast; Z87.440 Personal history of urinary (tract) infections; Z79.01 Long term (current) use of anticoagulants; Z95.0 Presence of cardiac pacemaker; Z90.710 Acquired absence of both cervix and uterus

== ENCOUNTER 2018-01-14 19:14 | Observation (INO) | payer MEDICARE, BC ==
[2018-01-14 19:15] VITALS: PULSE 66
--- NOTE | 2018-01-14 20:45 | ED PDOC ---
Arrival/HPI - General Chief Complaint: ENT Problem Time Seen by Provider: 01/14/18 20:28 Historian: Patient - History of Present Illness Narrative History of Present Illness (Text): Patient reports that she was eating chicken prior to arrival and felt some get stuck in her throat. She is now somewhat able to swallow her saliva but is having issues doing so, and has the sensation of food stuck in her esophagus. She has a recent history of similar symptoms, endoscopy was done but there was no food impaction found. Daughter contacted Dr. Niño who advised bringing the patient to the ED. Patient denies any vomiting, or shortness of breath. Past Medical History - Provider Review Nursing Documentation Reviewed: Yes - Travel History Have you recently traveled outside [place] w/in the past 3 mons?: No - Past History Past History: Non-Contributing - Infectious Disease Hx of Infectious Diseases: None - Tetanus Immunization Tetanus Immunization: Unknown - Cardiac Hx Cardiac Disorders: Yes Hx Cardiac Arrhythmia: Yes (A-fib) Hx Hypertension: Yes Hx Pacemaker: Yes Hx Peripheral Edema: Yes - Pulmonary Hx Respiratory Disorders: Yes Hx Pneumonia: Yes - Neurological Hx Neurological Disorder: Yes Hx Dizziness: Yes (vertigo) - HEENT Hx HEENT Disorder: Yes Hx Difficulty Chewing: Yes Other/Comment: HX right retinal bleeding, blurry vision - Renal Hx Renal Disorder: Yes - Endocrine/Metabolic Hx Endocrine Disorders: Yes Hx Hypothyroidism: Yes - Hematological/Oncological Hx Blood Transfusions: Yes Hx Blood Transfusion Reaction: No - Integumentary Hx Dermatological Disorder: Yes (R heel ulcer) Hx Basal Cell Carcinoma: Yes - Musculoskeletal/Rheumatological Hx Musculoskeletal Disorders: Yes Hx Arthritis: Yes (knees) Hx Falls: Yes Hx Osteoarthritis: Yes Hx Osteomyelitis: Yes Hx Osteoporosis: Yes - Gastrointestinal Hx Gastrointestinal Disorders: Yes (cholecystectomy) Hx Gall Bladder Disease: Yes - Genitourinary/Gynecological Hx Genitourinary Disorders: Yes Hx Incontinence: Yes Hx Urinary Tract Infection: Yes - Psychiatric Hx Psychophysiologic Disorder: Yes Hx Anxiety: Yes Hx Substance Use: No - Past Surgical History Past Surgical History: No Previous - Surgical History Hx Hysterectomy: Yes Hx Mastectomy: No (R Breast Lumpectomy) Hx Orthopedic Surgery: Yes Other/Comment: r ovarian cyst. L pacemaker - Anesthesia Hx Anesthesia: Yes Hx Anesthesia Reactions: No Hx Malignant Hyperthermia: No - Suicidal Assessment Feels Threatened In Home Enviroment: No Family/Social History - Physician Review Nursing Documentation Reviewed: Yes Family/Social History: No Known Family HX Smoking Status: Unknown If Ever Smoked Hx Alcohol Use: No Hx Substance Use: No Hx Substance Use Treatment: No Allergies/Home Meds Allergies/Adverse Reactions: Allergies sulfamethoxazole [From Bactrim] Allergy (Verified 01/03/18 18:56) RASH trimethoprim [From Bactrim] Allergy (Verified 01/03/18 18:56) RASH Home Medications: Home Meds Medication Instructions Recorded Confirmed Warfarin Sodium [Coumadin] 2 mg PO DAILY 06/10/14 01/14/18 Digoxin 0.25 mg PO QOTHERDAY 10/13/14 01/14/18 Furosemide [Lasix] 40 tab PO DAILY 10/24/17 01/14/18 Sennosides/Docusate Sodium [Stool 1 tab PO BID 10/24/17 01/14/18 Softener-Laxative Tablet] Multivit-Min/FA/Lycopen/Lutein 1 tab PO DAILY 01/03/18 01/14/18 [Centrum Silver Tablet] Review of Systems - Review of Systems Constitutional: Normal ENT: Other (Sensation of food impaction) Respiratory: Normal Cardiovascular: Normal Gastrointestinal: Normal Musculoskeletal: Normal Skin: Normal Neurological: Normal Physical Exam Vital Signs Reviewed: Yes Vital Signs Temp Pulse Resp BP Pulse Ox 01/14/18 19:45 97.1 F L 60 18 119/47 L 98 Temperature: Afebrile Blood Pressure: Normal Pulse: Regular Respiratory Rate: Normal Appearance: Positive for: Well-Appearing Pain Distress: None Mental Status: Positive for: Alert and Oriented X 3 - Systems Exam Head: Present: Normocephalic Pupils: Present: PERRL Extroacular Muscles: Present: EOMI Conjunctiva: Present: Normal Mouth: Present: Moist Mucous Membranes Pharnyx: Present: Normal, Other (No foreign body noted). No: Muffled/Hoarse Voice, [place] Neck: Present: Normal Range of Motion Respiratory/Chest: Present: Clear to Auscultation Cardiovascular: Present: Regular Rate and Rhythm Abdomen: No: Tenderness, Distention Upper Extremity: Present: Normal Inspection Lower Extremity: Present: Normal Inspection Neurological: Present: GCS=15 Skin: Present: Warm, Dry Psychiatric: Present: Oriented x 3 Medical Decision Making ED Course and Treatment: 01/14/18 20:[address] Niño. Plan is to observe overnight and do endoscopy tomorrow if patient is still having trouble swallowing. No glucagon necessary at this time. 01/14/18 21:[address] Chand, accepts admission. Reassessment Condition: Unchanged - Lab Interpretations Lab Results: 01/14/18 20:47 Lab Results 01/14/18 20:47: WBC 6.1 D, RBC 3.40 L, Hgb 10.5 L, Hct 32.8 L, MCV 96.5, MCH 30.9, MCHC 32.0, RDW 15.7 H, Plt Count 270, MPV 9.2, Gran % 67.9, Lymph % (Auto ) 22.4, [place] % (Auto) 7.4 H, Eos % (Auto) 1.5, Baso % (Auto) 0.8, Gran # 4.11, Lymph # (Auto) 1.4, [place] # (Auto) 0.5, Eos # (Auto) 0.1, Baso # (Auto) 0.05 Disposition/Present on Arrival - Present on Arrival Any Indicators Present on Arrival: No History of DVT/PE: No History of Uncontrolled Diabetes: No Urinary Catheter: No History of Decub. Ulcer: No History Surgical Site Infection Following: None - Disposition Have Diagnosis and Disposition been Completed?: Yes Diagnosis: Food impaction of esophagus Disposition: HOSPITALIZED Disposition Time: 21:02 Patient Plan: Admission Condition: GOOD
[2018-01-14 21:03] LABS: BASO # 0.05 K/mm3 (0.0-2.0); BASO % 0.8 % (0.0-3.0); EOS # 0.1 (0.0-0.7); EOS % 1.5 % (1.5-5.0); GRAN # 4.11 (1.4-6.5); GRAN % 67.9 % (50.0-68.0); HEMOGLOBIN 10.5 g/dL (12.0-16.0); LYMPH # 1.4 (1.2-3.4); LYMPH % 22.4 % (22.0-35.0); MEAN CELL VOLUME 96.5 fl (80.0-105.0); MEAN CORPUSCULAR HEMOGLOBIN 30.9 pg (25.0-35.0); MEAN PLATELET VOLUME 9.2 fl (7.0-11.0); MONO # 0.5 (0.1-0.6); MONO % 7.4 % (1.0-6.0); RBC 3.4 10^6/uL (3.5-6.1); RED CELL DISTRIBUTION WIDTH 15.7 % (11.5-14.5); WHITE BLOOD COUNT 6.1 10^3/ul (4.5-11.0)
[2018-01-14 22:18] LABS: INR 2.29 (0.93-1.08); PARTIAL THROMBOPLASTIN TIME 46.3 Seconds (25.1-36.5); PROTHROMBIN TIME 26.5 SECONDS (9.4-12.5)
[2018-01-14 22:31] LABS: ALB/GLOB RATIO 0.9 (1.1-1.8); ALBUMIN 3.3 g/dL (3.0-4.8); ALT/SGPT 32 U/L (7-56); AST/SGOT 32 U/L (14-36); BLOOD UREA NITROGEN 27 mg/dL (7-21); CALCIUM 8.8 mg/dL (8.4-10.5); GFR AFRICAN-AMERICAN > 60; GFR NON-AFRICAN AMERICAN > 60
[2018-01-14 22:46] VITALS: BMI 26.4
[2018-01-15] MEDS ORDERED: Lactated Ringer's 1,000 ML IV SCH (05:45)
--- NOTE | 2018-01-15 06:39 | CP.PCM.HP ---
<JudiRomy - Last Filed: 01/15/18 09:10> History of Present Illness - History of Present Illness History of Present Illness: H&P for Jeanette Loza PGY3 This is an 87 year old female with past medical history of HTN, chronic a.fib ( on Coumadin), UTIs, breast ca, CHF, pacemaker placement, dysphagia who came to ED for dysphagia after eating a piece of chicken. Patient reports she had fried chicken for dinner last night and cut it up into very small pieces. As she was eating it she was felt as if it was stuck in her throat. She did felt a little short of breath at the time. Her daughter called, Dr. Niño and he advised her to go to the ED. Patient reports still having that "stuck feeling" this morning. She denies chest pain, shortness of breath, nausea/vomiting/diarrhea, fever/chills, numbness/tingling, dysuria or hematuria. Patient was admitted last week for similar symptoms after eating chicken. She had an EGD which was unremarkable and patient was sent home. Past medical history: HTN, chronic a.fib (on Coumadin), UTIs, breast ca, CHF Past surgical history: hysterectomy, cholecystectomy, R breast lumpectomy, pacer Home meds: Reviewed as per MAR Allergies: Bactrim Social history: Denies EtOH, drug or tobacco use. Lives alone, but lives in 2 family home and family lives below her Family history: Father: of [place] at 81, Sister: of cancer ~10yrs ago (not sure what kind) Present on Admission - Present on Admission Any Indicators Present on Admission: No Review of Systems - Review of Systems All systems: reviewed and no additional remarkable complaints except Review of Systems: 12 point ROS reviewed as per HPI and is otherwise negative Past Patient History - Infectious Disease Hx of Infectious Diseases: None - Tetanus Immunizations Tetanus Immunization: Unknown - Past Social History Smoking Status: Never Smoked - CARDIAC Hx Cardiac Disorders: Yes Hx Cardia Arrhythmia: Yes (A-fib) Hx Hypertension: Yes Hx Pacemaker: Yes Hx Peripheral Edema: Yes - PULMONARY Hx Respiratory Disorders: Yes Hx Pneumonia: Yes - NEUROLOGICAL Hx Neurological Disorder: Yes Hx Dizziness: Yes (vertigo) - HEENT Hx HEENT Problems: Yes Hx Difficulty Chewing: Yes (upper dentures) Other/Comment: HX right retinal bleeding, blurry vision - RENAL Hx Chronic Kidney Disease: No - ENDOCRINE/METABOLIC Hx Endocrine Disorders: Yes Hx Hypothyroidism: Yes - HEMATOLOGICAL/ONCOLOGICAL Hx Blood Disorders: Yes Hx Cancer: Yes (r lumpectomy/nose) Hx Chemotherapy: No Other/Comment: radiation - INTEGUMENTARY Hx Dermatological Problems: Yes (R heel ulcer) Hx Basil Cell: Yes (nose, right arm, and back) Hx Squamous Cell: Yes (nose, right arm, and back) - MUSCULOSKELETAL/RHEUMATOLOGICAL Hx Falls: Yes - GASTROINTESTINAL Hx Gastrointestinal Disorders: Yes (cholecystectomy) Hx Gall Bladder Disease: Yes HX Swallowing Problems: Yes - GENITOURINARY/GYNECOLOGICAL Hx Genitourinary Disorders: Yes Hx Incontinence: Yes Hx Urinary Tract Infection: Yes - PSYCHIATRIC Hx Substance Use: No - SURGICAL HISTORY Hx Surgeries: Yes Hx Cholecystectomy: Yes Hx Hysterectomy: Yes Hx Mastectomy: No (R Breast Lumpectomy) Hx Orthopedic Surgery: Yes Other/Comment: r ovarian cyst removed. L pacemaker - ANESTHESIA Hx Anesthesia: Yes Hx Anesthesia Reactions: No Hx Malignant Hyperthermia: No Meds Allergies/Adverse Reactions: Allergies Allergy/AdvReac Type Severity Reaction Status Date / Time sulfamethoxazole Allergy RASH Verified 01/03/18 18:56 [From Bactrim] trimethoprim [From Bactrim] Allergy RASH Verified 01/03/18 18:56 Physical Exam - Constitutional Appears: No Acute Distress - Head Exam Head Exam: ATRAUMATIC, NORMAL INSPECTION, NORMOCEPHALIC - Eye Exam Eye Exam: Normal appearance, PERRL Pupil Exam: NORMAL ACCOMODATION - ENT Exam ENT Exam: Mucous Membranes Moist, Normal Oropharynx - Respiratory Exam Respiratory Exam: Clear to Auscultation Bilateral, NORMAL BREATHING PATTERN. absent: Rales, Rhonchi, Wheezes - Cardiovascular Exam Cardiovascular Exam: REGULAR RHYTHM, +S1, +S2. absent: Gallop, Rubs, Systolic Murmur - GI/Abdominal Exam GI & Abdominal Exam: Normal Bowel Sounds, Soft. absent: Mass, Rebound, Rigid, Tenderness - Extremities Exam Extremities exam: Positive for: normal inspection. Negative for: calf tenderness, pedal edema - Neurological Exam Neurological exam: Alert, CN II-XII Intact, Oriented x3 - Psychiatric Exam Psychiatric exam: Normal Affect, Normal Mood - Skin Skin Exam: Dry, Intact, Warm Results - Vital Signs Recent Vital Signs: Last Vital Signs Temp 98.2 F 01/14/18 22:36 Pulse 62 01/14/18 22:36 Resp 19 01/14/18 22:36 BP 124/63 01/14/18 22:36 Pulse Ox 100 01/14/18 22:10 - Labs Result Diagrams: 01/14/18 20:47 01/14/18 22:00 Labs: Laboratory Results - last 24 hr 01/14/18 01/14/18 22:00 22:00 PT 26.5 H INR 2.29 H APTT 46.3 H Sodium 145 Potassium 4.3 Chloride 103 Carbon Dioxide 35 H Anion Gap 12 BUN 27 H Creatinine 0.8 Est GFR ( Amer) > 60 Est GFR (Non-Af Amer) > 60 Random Glucose 106 Calcium 8.8 Total Bilirubin 0.3 AST 32 ALT 32 Alkaline Phosphatase 134 H D Total Protein 7.0 Albumin 3.3 Globulin 3.6 Albumin/Globulin Ratio 0.9 L Assessment & Plan - Assessment and Plan (Free Text) Assessment: This is an 87 year old female with past medical history of HTN, chronic a.fib ( on Coumadin), UTIs, breast ca, CHF, pacemaker placement, dysphagia who was admitted for 1. Dysphagia - can be secondary to motility disorder v. salivary disorder 2. HTN 3. A.fib 4. CHF 5. Hx of pacer placement Plan: Patient is NPO and on IV fluids. She will be evaluated by RAFAELA Prado. Recommend patient to avoid fried chicken. Will follow up recommendations as per Dr. Niño. If patient cleared as per GI, patient can be discharged home and continue home medications. Case seen, discussed and reviewed with Dr. Chand. Jeanette Lau PGY3 - Date & Time Date: 01/15/18 Time: 07:59 <Jasson Chand - Last Filed: 01/15/18 23:22> Results - Vital Signs Recent Vital Signs: Last Vital Signs Temp 98.6 F 01/15/18 06:00 Pulse 60 01/15/18 06:00 Resp 18 01/15/18 06:00 BP 130/69 01/15/18 06:00 Pulse Ox 96 01/15/18 06:00 - Labs Result Diagrams: 01/14/18 20:47 01/14/18 22:00 Assessment & Plan - Assessment and Plan (Free Text) Plan: Pt seen and examined. I have reviewed the note of the medical reviewer and agree with it. I have discussed the assessment and plan with the resident. I have reviewed the patient's labs and medications. Pt will be seen by GI and will wait for further input. No endoscopy is planned. Will await input from GI about D/C and further work up.
--- NOTE | 2018-01-15 07:24 | CP.PCM.CON ---
<MacrinaBennie gamble - Last Filed: 01/15/18 11:38> History of Present Illness - History of Present Illness History of Present Illness: GI Consult Note for Dr. Renay Schrader, PGY-3 IM This is an 87 yo F with PMH of AFib on Coumadin, CHF with preserved EF, breast cancer s/p lumpectomy, and HTN who represented to the ED with recurrence of dysphagia. Again attempted to eat chicken, and again developed subsequent feeling of food stuck in throat. Attempted to clear with liquid, but reported difficulty swallowing water, and difficulty swallowing saliva after that. Had similar symptoms during prior admission, at which time an endoscopy was performed, notable for changes suggestive of Dockery's esophagus and a cardia/ GE junction lesion which was biopsied, but not notable for food impaction. She was advanced to a pureed diet and tolerated without issue, and was then discharged home. This admission, patient now reports improved without resolution of sensation of food stuck in throat and swallowing of saliva. Denies coughing up secretions or choking, nausea, emesis, diarrhea, fever, chills, dysuria, hematuria, focal weakness. No hoarsness or changes in voice described by patient or daughter. All other ROS in 12-system review negative. PMH: As above PSH: Pacemaker, Right breast lumpectomy, Hysterectomy, Cholecystectomy FHx: Noncontributory Social: No prior tobacco, EtOH or illicit drug use PMD: Dr. Levi Review of Systems - Review of Systems All systems: reviewed and no additional remarkable complaints except (as per HPI ) Past Patient History - Infectious Disease Hx of Infectious Diseases: None - Tetanus Immunizations Tetanus Immunization: Unknown - Past Social History Smoking Status: Never Smoked - CARDIAC Hx Cardiac Disorders: Yes Hx Cardia Arrhythmia: Yes (A-fib) Hx Hypertension: Yes Hx Pacemaker: Yes Hx Peripheral Edema: Yes - PULMONARY Hx Respiratory Disorders: Yes Hx Pneumonia: Yes - NEUROLOGICAL Hx Neurological Disorder: Yes Hx Dizziness: Yes (vertigo) - HEENT Hx HEENT Problems: Yes Hx Difficulty Chewing: Yes (upper dentures) Other/Comment: HX right retinal bleeding, blurry vision - RENAL Hx Chronic Kidney Disease: No - ENDOCRINE/METABOLIC Hx Endocrine Disorders: Yes Hx Hypothyroidism: Yes - HEMATOLOGICAL/ONCOLOGICAL Hx Blood Disorders: Yes Hx Cancer: Yes (r lumpectomy/nose) Hx Chemotherapy: No Other/Comment: radiation - INTEGUMENTARY Hx Dermatological Problems: Yes (R heel ulcer) Hx Basil Cell: Yes (nose, right arm, and back) Hx Squamous Cell: Yes (nose, right arm, and back) - MUSCULOSKELETAL/RHEUMATOLOGICAL Hx Falls: Yes - GASTROINTESTINAL Hx Gastrointestinal Disorders: Yes (cholecystectomy) Hx Gall Bladder Disease: Yes HX Swallowing Problems: Yes - GENITOURINARY/GYNECOLOGICAL Hx Genitourinary Disorders: Yes Hx Incontinence: Yes Hx Urinary Tract Infection: Yes - PSYCHIATRIC Hx Substance Use: No - SURGICAL HISTORY Hx Surgeries: Yes Hx Cholecystectomy: Yes Hx Hysterectomy: Yes Hx Mastectomy: No (R Breast Lumpectomy) Hx Orthopedic Surgery: Yes Other/Comment: r ovarian cyst removed. L pacemaker - ANESTHESIA Hx Anesthesia: Yes Hx Anesthesia Reactions: No Hx Malignant Hyperthermia: No Meds Allergies/Adverse Reactions: Allergies Allergy/AdvReac Type Severity Reaction Status Date / Time sulfamethoxazole Allergy RASH Verified 01/03/18 18:56 [From Bactrim] trimethoprim [From Bactrim] Allergy RASH Verified 01/03/18 18:56 - Medications Medications: Current Medications Lactated Ringer's (Lactated Ringer's) 1,000 mls @ 50 mls/hr IV .Q20H PAUL Last Admin: 01/15/18 06:17 Dose: 50 mls/hr Physical Exam - Constitutional Appears: Non-toxic, No Acute Distress, Chronically Ill - Head Exam Head Exam: ATRAUMATIC, NORMAL INSPECTION, NORMOCEPHALIC - Eye Exam Eye Exam: EOMI, Normal appearance. absent: Conjunctival injection, Scleral icterus Pupil Exam: absent: Fixed, Irregular - ENT Exam ENT Exam: Mucous Membranes Moist - Neck Exam Neck exam: Positive for: Full Rom, Normal Inspection Additional comments: Mallampiti II, no kissing tonsils, no exudate or pooled secretions - Respiratory Exam Respiratory Exam: Clear to Auscultation Bilateral. absent: Accessory Muscle Use , Chest Wall Tenderness (some discomfort along midline/along esophageal pathway , but no tenderness to palpation), Decreased Breath Sounds, Prolonged Expiratory Phase, Rales, Rhonchi, Wheezes - Cardiovascular Exam Cardiovascular Exam: REGULAR RHYTHM, RRR, +S1, +S2. absent: Bradycardia, Tachycardia, Irregular Rhythm, JVD, +S4 - GI/Abdominal Exam GI & Abdominal Exam: Normal Bowel Sounds. absent: Diminished Bowel Sounds, Hyperactive Bowel Sounds, Hypoactive Bowel Sounds, Soft, Tenderness - Extremities Exam Extremities exam: Positive for: normal capillary refill, normal inspection, pedal pulses present. Negative for: calf tenderness, pedal edema, tenderness - Neurological Exam Neurological exam: Alert, Oriented x3 - Psychiatric Exam Psychiatric exam: Normal Affect, Normal Mood - Skin Skin Exam: Dry, Intact, Normal Color, Warm Results - Vital Signs Recent Vital Signs: Last Vital Signs Temp 98.2 F 01/14/18 22:36 Pulse 62 01/14/18 22:36 Resp 19 01/14/18 22:36 BP 124/63 01/14/18 22:36 Pulse Ox 100 01/14/18 22:10 - Labs Result Diagrams: 01/14/18 20:47 01/14/18 22:00 Labs: Laboratory Results - last 24 hr 01/14/18 01/14/18 22:00 22:00 PT 26.5 H INR 2.29 H APTT 46.3 H Sodium 145 Potassium 4.3 Chloride 103 Carbon Dioxide 35 H Anion Gap 12 BUN 27 H Creatinine 0.8 Est GFR ( Amer) > 60 Est GFR (Non-Af Amer) > 60 Random Glucose 106 Calcium 8.8 Total Bilirubin 0.3 AST 32 ALT 32 Alkaline Phosphatase 134 H D Total Protein 7.0 Albumin 3.3 Globulin 3.6 Albumin/Globulin Ratio 0.9 L Assessment & Plan - Assessment and Plan (Free Text) Assessment: This is an 87 yo F with PMH of AFib on Coumadin, CHF with preserved EF, breast cancer s/p lumpectomy, and HTN who represented to the ED with recurrence of dysphagia. GI consulted for concern for dysphagia, possible food impaction, possible esophageal dysmotility. Plan: Solid food dysphagia Atrial fibrillation on Coumadin CHF with preserved ED HTN HLD Hx L breast Cancer s/p mastectomy -S/p endoscopic evaluation without overt esphageal lesion to account for dysphagia approx 1 week ago during last admission, no need for repeat EGD at this time -More likely esophageal dysmotility than true obstruction -No food bolus appreciated on oral exam; tolerating swallowing water from cup on exam, can trial CLD this AM and advanced to Pureeds i -Tolerating pureed diet - would continue this for now -Recommend outpatient follow up - awaiting path results -May benefit from GI motility evaluation to rule out underlying achalasia as outpatient -Encouraged patient to be complaint with home pureed diet pending additional outpatient workup -Clear for discharge to home from GI standpoint, follow up with Dr Niño on PRN basis Seen, reviewed, and discussed with attending, Dr Niño <Chandni Niño V - Last Filed: 01/16/18 00:29> Results - Vital Signs Recent Vital Signs: Last Vital Signs Temp 98.6 F 01/15/18 06:00 Pulse 60 01/15/18 06:00 Resp 18 01/15/18 06:00 BP 130/69 01/15/18 06:00 Pulse Ox 96 01/15/18 06:00 - Labs Result Diagrams: 01/14/18 20:47 01/14/18 22:00 Attending/Attestation - Attestation I have personally seen and examined this patient.: Yes I have fully participated in the care of the patient.: Yes I have reviewed all pertinent clinical information: Yes Notes (Text): This is an addendum to GI consult report dictated by the Photo [employer] Assistant.The patient was seen and examined earlier. Medical records, lab studies, imagings were reviewed. Last 24 hours events reviewed. Agreed with the above treatment plan as outlined in Photo [employer] Assistant 's notes the with the addition of the following 01/16/18 00:29
[2018-01-15 08:04] VITALS: BP 130/69; PULSE 60; RESP 18; TEMP 98.6; O2SAT 96
[2018-01-15] MEDS ORDERED: Nystatin 100,000 Units/gm Topical Pow(15 gm) TOP SCH (18:00)
== END 2018-01-15 16:35 | disposition home or self-care (01) ==
LOC: ED 19:14 → ERH 21:02 → 3RNO 22:19
PROVIDERS: ADMIT Internal Medicine Nephrology; ATTEND Internal Medicine Nephrology
DX: K22.4 Dyskinesia of esophagus (principal); I11.0 Hypertensive heart disease with heart failure; I50.9 Heart failure, unspecified; I48.2 Chronic atrial fibrillation; E03.9 Hypothyroidism, unspecified; M81.0 Age-related osteoporosis without current pathological fracture; Z79.01 Long term (current) use of anticoagulants; Z85.3 Personal history of malignant neoplasm of breast; Z85.828 Personal history of other malignant neoplasm of skin; Z87.01 Personal history of pneumonia (recurrent); Z87.440 Personal history of urinary (tract) infections; Z90.49 Acquired absence of other specified parts of digestive tract; Z90.710 Acquired absence of both cervix and uterus; Z95.0 Presence of cardiac pacemaker; Z80.0 Family history of malignant neoplasm of digestive organs; Z88.1 Allergy status to other antibiotic agents

== ENCOUNTER 2018-04-13 07:13 | Emergency (ER) | payer MEDICARE, BC ==
[2018-04-13 07:13] VITALS: PULSE 66
[2018-04-13 07:26] VITALS: RESP 18; BMI 26.6
--- NOTE | 2018-04-13 07:49 | ED PDOC ---
Arrival/HPI - General Chief Complaint: Trauma Time Seen by Provider: 04/13/18 07:36 Historian: Patient, Family - History of Present Illness Narrative History of Present Illness (Text): 88yo female, with past medical history of A-fib and currently on coumadin, is brought to ER by her family for evaluation s/p a fall. Patient got up from her bed and while going to the bathroom, sustained a mechanical fall, with a left sided head injury. Per family, patient did not lose consciousness but had to be helped up. Otherwise, no vomiting, vision changes, weakness, numbness. No other medical complaints. PMD: Dr. Levi Time/Duration: Prior to Arrival Past Medical History - Provider Review Nursing Documentation Reviewed: Yes - Past History Past History: Non-Contributing - Infectious Disease Hx of Infectious Diseases: None - Tetanus Immunization Tetanus Immunization: Unknown - Reproductive Menopause: No - Cardiac Hx Cardiac Disorders: Yes Hx Cardiac Arrhythmia: Yes (A-fib) Hx Hypertension: Yes Hx Pacemaker: Yes Hx Peripheral Edema: Yes - Pulmonary Hx Respiratory Disorders: Yes Hx Pneumonia: Yes - Neurological Hx Neurological Disorder: Yes Hx Dizziness: Yes (vertigo) - HEENT Hx HEENT Disorder: Yes Hx Difficulty Chewing: Yes (upper dentures) Other/Comment: HX right retinal bleeding, blurry vision - Renal Hx Renal Disorder: No - Endocrine/Metabolic Hx Endocrine Disorders: Yes Hx Hypothyroidism: Yes - Hematological/Oncological Hx Blood Disorders: Yes Hx Cancer: Yes (r lumpectomy/nose) Hx Chemotherapy: No Other/Comment: radiation - Integumentary Hx Dermatological Disorder: Yes (R heel ulcer) Hx Basal Cell Carcinoma: Yes (nose, right arm, and back) Hx Squamous Cell Carcinoma: Yes (nose, right arm, and back) - Musculoskeletal/Rheumatological Hx Falls: Yes - Gastrointestinal Hx Gastrointestinal Disorders: Yes (cholecystectomy) Hx Gall Bladder Disease: Yes HX Swallowing Problems: Yes - Genitourinary/Gynecological Hx Genitourinary Disorders: Yes Hx Incontinence: Yes Hx Urinary Tract Infection: Yes - Psychiatric Hx Psychophysiologic Disorder: No Hx Substance Use: No - Past Surgical History Past Surgical History: No Previous - Surgical History Hx Cholecystectomy: Yes Hx Hysterectomy: Yes Hx Mastectomy: No (R Breast Lumpectomy) Hx Orthopedic Surgery: Yes Other/Comment: r ovarian cyst removed. L pacemaker - Anesthesia Hx Anesthesia: Yes Hx Anesthesia Reactions: No Hx Malignant Hyperthermia: No - Suicidal Assessment Feels Threatened In Home Enviroment: No Family/Social History - Physician Review Nursing Documentation Reviewed: Yes Family/Social History: No Known Family HX Smoking Status: Never Smoked Hx Alcohol Use: No Hx Substance Use: No Hx Substance Use Treatment: No Allergies/Home Meds Allergies/Adverse Reactions: Allergies sulfamethoxazole [From Bactrim] Allergy (Verified 01/03/18 18:56) RASH trimethoprim [From Bactrim] Allergy (Verified 01/03/18 18:56) RASH Home Medications: Home Meds Medication Instructions Recorded Confirmed Warfarin Sodium [Coumadin] 2 mg PO DAILY 06/10/14 01/14/18 Digoxin 0.25 mg PO QOTHERDAY 10/13/14 01/14/18 Furosemide [Lasix] 40 tab PO DAILY 10/24/17 01/14/18 Sennosides/Docusate Sodium [Stool 1 tab PO BID 10/24/17 01/14/18 Softener-Laxative Tablet] Multivit-Min/FA/Lycopen/Lutein 1 tab PO DAILY 01/03/18 01/14/18 [Centrum Silver Tablet] Review of Systems - Physician Review All systems were reviewed & negative as marked: Yes (per HPI) - Review of Systems Constitutional: Other (fall) Eyes: absent: Vision Changes Neurological: Other (left sided head injury). absent: Focal Weakness Physical Exam - Physical Exam Narrative Physical Exam (Text): Gen: VS reviewed, alert, well developed, well nourished, nontoxic, mild distress. Head: Hematoma noted to left occiput with a central abrasion and minimal bleeding. ENT: normal pharynx. Eye: EOMI, PERRL. Neck: no JVD, supple, no adenopathy. CV: regular rate, regular rhythm, no rubs, no murmur, no gallops, S1, S2, pulses equal and strong. Pulm: no distress, clear to auscultation, no wheeze, no rhonchi, breath sounds equal, no rales. Abd: soft, nontender, no guarding, no rebound, no rigidity, normal bowel sounds. Ext: no edema. Skin: good color, no rash, no cyanosis. Psych: responds appropriately to questions, normal affect. Neuro: oriented x 3, CN2-12 intact grossly, motor intact, sensation intact. Vital Signs Temp Pulse Resp BP Pulse Ox 04/13/18 07:31 98.2 F 89 18 136/71 96 04/13/18 07:25 98.7 F 86 18 136/71 96 Medical Decision Making ED Course and Treatment: Impression: 88yo female brought to ER for evaluation of head injury s/p fall Plan: -- Labs -- CT Head w/o contrast -- CT C-spine w/o contrast -- C-Collar -- Reassess and disposition Prior Visits: Notes and results from previous visits were reviewed. Patient was last seen in the emergency department on 01/14/18 and was admitted due to esophageal food impaction. Progress Notes: 04/13/18 08:53 patient seen for mechanical fall, head injury with very superficial and tiny laceration to the left occipital scalp. patient remained stable throughout ED course. cervical colalr removed by myself. antibiotic ointment to the scalp appears adequate at this time for hemostasis. Last tetanus booster last year as per the patient. 04/13/18 08:56 - RAD Interpretation Narrative RAD Interpretations (Text): 04/13/18 08:43 CT C-Spine FINDINGS: VERTEBRAE: No fracture. Normal alignment. No destructive bony lesion. DISCS/SPINAL CANAL/NEURAL FORAMINA: No significant central canal or neural foraminal stenosis. Multilevel disc degeneration PARASPINAL SOFT TISSUES: Unremarkable. OTHER FINDINGS: None. IMPRESSION: No acute findings CT Head FINDINGS: HEMORRHAGE: No intracranial hemorrhage. BRAIN: No mass effect or edema. No atrophy or chronic microvascular ischemic changes. VENTRICLES: Unremarkable. No hydrocephalus. CALVARIUM: Unremarkable. PARANASAL SINUSES: Unremarkable as visualized. No significant inflammatory changes. MASTOID AIR CELLS: Unremarkable as visualized. No inflammatory changes. OTHER FINDINGS: The report concurs with the preliminary [facility] report IMPRESSION: No acute intracranial findings Radiology Orders: 04/13/18 07:38 CERVICAL SPINE W/O CONTRAST [CT] Stat HEAD W/O CONTRAST [CT] Stat - Scribe Statement The provider has reviewed the documentation as recorded by the Mehdi Cat Provider Scribe Attestation: All medical record entries made by the Scribe were at my direction and personally dictated by me. I have reviewed the chart and agree that the record accurately reflects my personal performance of the history, physical exam, medical decision making, and the department course for this patient. I have also personally directed, reviewed, and agree with the discharge instructions and disposition. Disposition/Present on Arrival - Present on Arrival Any Indicators Present on Arrival: No History of DVT/PE: No History of Uncontrolled Diabetes: No Urinary Catheter: No History of Decub. Ulcer: No History Surgical Site Infection Following: None - Disposition Have Diagnosis and Disposition been Completed?: Yes Diagnosis: Head injury, Laceration of scalp Disposition: HOME/ ROUTINE Disposition Time: 08:57 Patient Plan: Discharge Condition: STABLE Discharge Instructions (ExitCare): Closed Head Injury, Wound Care Additional Instructions: Return for any new or worsening symptoms . Follow up with your primary care doctor as soon as possible. JUAN FRANCISCO CAMARILLO, thank you for letting us take care of you today. Your provider was Dr. Paulo Garcia and you were treated for fall and head injury. The emergency medical care you received today was directed at your acute symptoms. If you were prescribed any medication, please fill it and take as directed. It may take several days for your symptoms to resolve. Return to the Emergency Department if your symptoms worsen, do not improve, or if you have any other problems. Please contact your doctor or call one of the physicians/clinics you have been referred to that are listed on the Patient Visit Information form that is included in your discharge packet. Bring any paperwork you were given at discharge with you along with any medications you are taking to your follow up visit. Our treatment cannot replace ongoing medical care by a primary care provider outside of the emergency department. Thank you for allowing the [facility] team to be part of your care today. If you had an X-Ray or CT scan: A Radiologist will review the ED reading if any change in treatment is needed we will contact you. If you had a blood, urine, or wound culture: It will take several days for the results, if any change in treatment is needed we will contact you. If you had an STI test: It will take 48 hours for the results. Please call after 1 week if you have not heard back. Forms: [employer] (Latvian)
[2018-04-13 08:12] LABS: BASO # 0.02 K/mm3 (0.0-2.0); BASO % 0.3 % (0.0-3.0); EOS # 0.1 (0.0-0.7); EOS % 1.5 % (1.5-5.0); GRAN # 4.29 (1.4-6.5); GRAN % 69.5 % (50.0-68.0); HEMOGLOBIN 11.3 g/dL (12.0-16.0); LYMPH # 1.3 (1.2-3.4); LYMPH % 21.2 % (22.0-35.0); MEAN CELL VOLUME 93.3 fl (80.0-105.0); MEAN CORPUSCULAR HEMOGLOBIN 30.3 pg (25.0-35.0); MEAN CORPUSCULAR HGB CONC 32.5 g/dl (31.0-37.0); MEAN PLATELET VOLUME 9.7 fl (7.0-11.0); MONO # 0.5 (0.1-0.6); MONO % 7.5 % (1.0-6.0); RBC 3.73 10^6/uL (3.5-6.1); RED CELL DISTRIBUTION WIDTH 14.3 % (11.5-14.5); WHITE BLOOD COUNT 6.2 10^3/ul (4.5-11.0)
[2018-04-13 08:20] LABS: BLOOD UREA NITROGEN 32 mg/dL (7-21); CALCIUM 9.4 mg/dL (8.4-10.5); GFR NON-AFRICAN AMERICAN > 60
[2018-04-13 08:24] LABS: INR 1.85; PARTIAL THROMBOPLASTIN TIME 37.7 Seconds (25.1-36.5); PROTHROMBIN TIME 21.5 SECONDS (9.4-12.5)
--- NOTE | 2018-04-13 08:31 | CT ---
Date of service: 04/13/2018 PROCEDURE: CT HEAD WITHOUT CONTRAST. HISTORY: trauma COMPARISON: 10/24/2017 TECHNIQUE: Axial computed tomography images were obtained through the head/brain without intravenous contrast. Radiation dose: Total exam DLP = 934 mGy-cm. This CT exam was performed using one or more of the following dose reduction techniques: Automated exposure control, adjustment of the mA and/or kV according to patient size, and/or use of iterative reconstruction technique. FINDINGS: HEMORRHAGE: No intracranial hemorrhage. BRAIN: No mass effect or edema. No atrophy or chronic microvascular ischemic changes. VENTRICLES: Unremarkable. No hydrocephalus. CALVARIUM: Unremarkable. PARANASAL SINUSES: Unremarkable as visualized. No significant inflammatory changes. MASTOID AIR CELLS: Unremarkable as visualized. No inflammatory changes. OTHER FINDINGS: The report concurs with the preliminary [facility] report IMPRESSION: No acute intracranial findings
--- NOTE | 2018-04-13 08:34 | CT ---
Date of service: 04/13/2018 PROCEDURE: CT Cervical Spine without contrast HISTORY: trauma COMPARISON: None available. TECHNIQUE: Axial computed tomography images were obtained of the cervical spine without the use of intravenous contrast. Coronal and sagittal reformatted images were created and reviewed. Radiation dose: Total exam DLP = 416 mGy-cm. This CT exam was performed using one or more of the following dose reduction techniques: Automated exposure control, adjustment of the mA and/or kV according to patient size, and/or use of iterative reconstruction technique. FINDINGS: VERTEBRAE: No fracture. Normal alignment. No destructive bony lesion. DISCS/SPINAL CANAL/NEURAL FORAMINA: No significant central canal or neural foraminal stenosis. Multilevel disc degeneration PARASPINAL SOFT TISSUES: Unremarkable. OTHER FINDINGS: None. IMPRESSION: No acute findings
[2018-04-13 10:48] VITALS: BP 132/79; PULSE 91; TEMP 97.9; O2SAT 97
== END 2018-04-13 10:47 | disposition home or self-care (01) ==
LOC: ED 07:13
DX: S01.01XA Laceration without foreign body of scalp, initial encounter (principal); W18.30XA Fall on same level, unspecified, initial encounter; I48.91 Unspecified atrial fibrillation; Z79.01 Long term (current) use of anticoagulants; I10 Essential (primary) hypertension; E03.9 Hypothyroidism, unspecified; Z95.0 Presence of cardiac pacemaker

== ENCOUNTER 2018-10-25 07:35 | Outpatient (CLI) | payer MEDICARE, BC | END 2018-10-25 07:36 | disposition home or self-care (01) | LOC: LAB 07:35 ==